=== PATIENT | female | born 1940 | race Caucasian/White ===

== ENCOUNTER 2016-04-17 10:47 | Inpatient (IN) | payer OTHER ==
[2016-04-17 12:10] LABS: BASOPHIL 1.2 % (0-2.0); EOSINOPHIL 1.7 % (0-4.5); MCH 30.8 pg (25.7-33.7); MCHC 33.6 g/dl (32.0-36.0); MEAN CELL VOLUME 91.6 fl (80-96); MEAN PLT VOLUME 7.6 fl (7.5-11.1); NEUTROPHILS 67.3 % (42.8-82.8); PLATELET COUNT 210 K/MM3 (134-434); RDW 13.9 % (11.6-15.6); WHITE BLOOD COUNT 9.5 K/mm3 (4.0-10.0)
[2016-04-17 13:01] LABS: INR 2.66 (0.82-1.09); PROTHROMBIN TIME (PATIENT) 29.9 SEC (9.98-11.88)
--- NOTE | 2016-04-17 13:01 | PDOC ---
History of Present Illness <Nathaniel Kenny - Last Filed: 04/17/16 14:16> - General History Source: Patient Exam Limitations: No Limitations - History of Present Illness Initial Comments: 04/17/16 14:54 The patient is a 75 year old female, with a significant past medical history of Atherosclerosis, hypertension, hypothyroid, multiple CVA and recent onset A-fib( on Coumadin), who presents to the emergency department sent by PCP for low Hbg of 8. Patient reports a short epistaxis yesterday and today that resolved on its own. Patient states that she has no other complains. She denies palpitations, chest pain, shortness of breath, headache, diaphoresis and dizziness. She denies fever, chills, nausea, vomit, diarrhea and constipation. She denies dysuria, frequency, urgency and hematuria. PCP - Dr. Becker <Danielle Ji - Last Filed: 04/17/16 14:55> - General Chief Complaint: Revisit, Lab Variance Stated Complaint: WEAKNESS (ANEMIC) Time Seen by Provider: 04/17/16 11:50 Past History - Past Medical History Anemia: No Asthma: No Cancer: No Cardiac Disorders: No CVA: No COPD: No CHF: No Dementia: No Diabetes: No GI Disorders: No Disorders: No HTN: Yes Hypercholesterolemia: No Liver Disease: No Seizures: No Thyroid Disease: Yes Other medical history: BLIND - Surgical History Abdominal Surgery: Yes (HIATAL HERNIA) Appendectomy: No Cardiac Surgery: No Cholecystectomy: Yes Lung Surgery: No Neurologic Surgery: No Orthopedic Surgery: No - Immunization History Immunization Up to Date: Yes - Psycho/Social/Smoking Cessation Hx Anxiety: No Suicidal Ideation: No Smoking Status: No Smoking History: Former smoker Have you smoked in the past 12 months: No Number of Cigarettes Smoked Daily: 20 If you are a former smoker, when did you quit?: 4 MO AGO Cigars Per Day: 10 Information on smoking cessation initiated: No 'Breaking Loose' booklet given: 03/11/13 Hx Alcohol Use: No Drug/Substance Use Hx: No Substance Use Type: None Hx Substance Use Treatment: No <Nathaniel Kenny - Last Filed: 04/17/16 14:16> <Danielle Ji - Last Filed: 04/17/16 14:55> - Past Medical History Allergies/Adverse Reactions: Allergies Allergy/AdvReac Type Severity Reaction Status Date / Time No Known Drug Allergies Allergy Verified 04/17/16 11:05 Home Medications: Ambulatory Orders Alprazolam [Xanax] 0.25 mg PO DAILY PRN 04/17/16 Amlodipine Besylate [Norvasc -] 10 mg PO DAILY 04/17/16 Aspirin [Aspirin EC] 325 mg PO DAILY 04/17/16 Atorvastatin Ca [Lipitor] 20 mg PO HS 04/17/16 Famotidine [Heartburn Prevention] 20 mg PO DAILY 04/17/16 Magnesium Oxide [Magnesium] 400 mg PO DAILY 04/17/16 Metoprolol Succinate [Toprol Xl -] 25 mg PO BID 04/17/16 Timolol 0.5% [Timoptic 0.5%] 1 drop OU DAILY 04/17/16 Warfarin Sodium [Coumadin] 4 mg PO HS 04/17/16 Review of Systems - Review of Systems Able to Perform ROS?: Yes Comments:: 04/17/16 14:54 CONSTITUTIONAL: No reported: Fever, Chills, Diaphoresis, Generalized Weakness, Malaise, Loss of Appetite HEENT: No reported: Rhinorrhea, Nasal Congestion, Throat Pain, Throat Swelling, Difficulty Swallowing, Mouth Swelling, Ear Pain, Eye Pain, Visual Changes CARDIOVASCULAR: No reported: Chest Pain, Syncope, Palpitations, Irregular Heart Rate, Lightheadedness, Peripheral Edema RESPIRATORY: No reported: Cough, Shortness of Breath, SOB with Exertion, Orthopnea, Wheezing , Stridor, Hemoptysis GASTROINTESTINAL: No reported: Abdominal pain, Abdominal Distension, Nausea, Vomiting, Diarrhea, Constipation, Melena, Hematochezia GENITOURINARY: No reported: Dysuria, Frequency, Urgency, Hesitancy, Flank Pain, Genital Pain MUSCULOSKELETAL: No reported: Myalgia, Arthralgia, Joint Swelling, Back pain, Neck Pain SKIN: No reported: Rash, Itching, Pallor HEMATOLOGIC/IMMUNOLOGIC: No reported: Easy Bleeding, Easy Bruising, Lymphadenopathy, Frequent infections ENDOCRINE: No reported: Unexplained Weight Gain, Unexplained Weight Loss, Heat Intolerance , Cold Intolerance NEUROLOGIC: No reported: Headache, Focal Weakness, Paresthesias, Vertigo, Lightheadedness, Unsteady Gait, Seizure, Mental Status Changes, Incontinence PSYCHIATRIC: No reported: Anxiety, Depression <Danielle Ji - Last Filed: 04/17/16 14:55> *Physical Exam - Vital Signs Last Vital Signs Temp Pulse Resp BP Pulse Ox 97.8 F 59 L 20 139/52 97 04/17/16 11:00 04/17/16 11:00 04/17/16 11:00 04/17/16 11:00 04/17/16 11:00 <Nathaniel Kenny - Last Filed: 04/17/16 14:16> - Vital Signs Last Vital Signs Temp Pulse Resp BP Pulse Ox 97.8 F 59 L 20 139/52 97 04/17/16 11:00 04/17/16 11:00 04/17/16 11:00 04/17/16 11:00 04/17/16 11:00 - Physical Exam Comments: 04/17/16 14:55 GENERAL: The patient is awake, alert, and fully oriented, Nontoxic - in no acute distress. HEAD: Normocephalic, atraumatic. EYES: extraocular movements intact, sclera anicteric, conjunctiva clear. ENT: Normal voice, Moist mucous membranes. NECK: Normal range of motion, No JVD LUNGS: Breath sounds equal, clear to auscultation bilaterally. No wheezes, no rhonchi, no rales. HEART: Regular rate and rhythm, normal S1 and S2 without murmur, rub or gallop. ABDOMEN: Soft, nontender, normoactive bowel sounds. No guarding, no rebound. No masses. No CVA tenderness EXTREMITIES: Normal range of motion, no edema. No clubbing or cyanosis. No cords , erythema, or tenderness. NEUROLOGICAL: No facial asymmetry, Normal speech, normal gait. PSYCH: Normal mood, normal affect. SKIN: Warm, Dry, normal turgor. RECTAL EXAM: brown stool, no hemorroids noted. <Danielle Ji - Last Filed: 04/17/16 14:55> Heart Score/ECG Review - ECG Impressions Comment:: 04/17/16 13:06 Twelve-lead EKG was performed and reviewed by me. There is normal sinus rhythm with a heart rate of 53 The axis is normal. The intervals are normal. There is normal R wave progression nonspecific T wave changes Impression: Sinus bradycardia <Nathaniel Kenny - Last Filed: 04/17/16 14:16> ED Treatment Course - LABORATORY CBC & Chemistry Diagram: 04/17/16 11:50 04/17/16 11:50 - ADDITIONAL ORDERS Additional order review: 04/17/16 11:50 RBC 2.50 L D MCV 91.6 MCHC 33.6 RDW 13.9 MPV 7.6 Neutrophils % 67.3 Lymphocytes % 22.7 D Monocytes % 7.1 Eosinophils % 1.7 D Basophils % 1.2 - RADIOLOGY Radiology Studies Ordered: Category Date Time Status CHEST X-RAY PORTABLE* [RAD] Stat Radiology 04/17/16 11:50 Completed <Nathaniel Kenny - Last Filed: 04/17/16 14:16> - LABORATORY CBC & Chemistry Diagram: 04/17/16 11:50 04/17/16 11:50 - ADDITIONAL ORDERS Additional order review: Laboratory Results 04/17/16 04/17/16 04/17/16 12:57 11:50 11:50 INR 2.66 H Sodium 136 Potassium 4.3 Chloride 98 Carbon Dioxide 25 Anion Gap 13 BUN 14 Creatinine 1.2 H D Creat Clearance w eGFR 43.56 Random Glucose 84 Calcium 8.3 L Total Bilirubin 0.3 D AST 63 H D ALT 44 D Alkaline Phosphatase 107 Total Protein 7.1 Albumin 3.8 Stool Occult Blood Negative Blood Type Antibody Screen 04/17/16 11:50 INR Sodium Potassium Chloride Carbon Dioxide Anion Gap BUN Creatinine Creat Clearance w eGFR Random Glucose Calcium Total Bilirubin AST ALT Alkaline Phosphatase Total Protein Albumin Stool Occult Blood Blood Type A POSITIVE Antibody Screen Negative 04/17/16 11:50 RBC 2.50 L D MCV 91.6 MCHC 33.6 RDW 13.9 MPV 7.6 Neutrophils % 67.3 Lymphocytes % 22.7 D Monocytes % 7.1 Eosinophils % 1.7 D Basophils % 1.2 <Danielle Ji - Last Filed: 04/17/16 14:55> Medical Decision Making - Medical Decision Making 04/17/16 12:58 75y F htn, hl, Atherosclerosis, hypertension, hypothyroid, and recent onset A- fib on coumadin, multiple cvas presents with anemia - pt had outpatient blood work that showed she was anemic so was told to come to the ED, the pt denies any complaints including any rectal bleeding, melena, nor signs of anemia. on exam pt is in no acute distress, unremarkable exam, stool exam is yellow stool - guaiac pending. vitals normal will recheck her labs if necessary will trasnfuse will discuss with PMD once labs returend. A portion of this note was documented by scribe services under my direction. I have reviewed the details of the note, within reason, and agree with the documentation with the following case summary and management plan written by me 04/17/16 13:26 pts hbg at 7.6, 2pt hbg drop from previous admission several months ago guaiac pending will likely need admission for evaluation of anemia 04/17/16 13:30 04/17/16 14:16 case d/w dr. goff requested consult with GI and transfusion of 2u prbc stable for med surg admission Case discussed in detail with admitting physician including history, physical exam and ancillary studies. Admitting physician has assumed care for the patient, will follow all pending diagnostics and will complete the evaluation and treatment. <Nathaniel Kenny - Last Filed: 04/17/16 14:16> - Medical Decision Making 04/17/16 14:02 A page was placed to Dr. Goff at his service. Awaiting call back. 04/17/16 14:[address] Goff. <Danielle Ji - Last Filed: 04/17/16 14:55> *DC/Admit/Observation/Transfer - Discharge Dispostion Admit: Yes <Nathaniel Kenny - Last Filed: 04/17/16 14:16> - Attestations Scribe Attestion: 04/17/16 14:55 Documentation prepared by JESSE Guerrero, acting as medical lab scientist for Nathaniel Kenny MD. <Danielle Ji - Last Filed: 04/17/16 14:55> Diagnosis at time of Disposition: Anemia Qualifiers: Anemia type: unspecified type Qualified Code(s): D64.9 - Anemia, unspecified - Referrals Referrals: Eduardo Goff MD [Primary Care Provider] -
[2016-04-17 13:24] LABS: ALBUMIN 3.8 g/dl (3.4-5.0); BILIRUBIN,TOTAL 0.3 mg/dL (0.2-1.0); CALCIUM 8.3 mg/dL (8.5-10.1); CREATININE 1.2 mg/dL (0.55-1.02); TOT PROT 7.1 g/dl (6.4-8.2)
--- NOTE | 2016-04-17 16:14 | EKG ---
Test Reason : Blood Pressure : / mmHG Vent. Rate : 053 BPM Atrial Rate : 053 BPM P-R Int : 148 ms QRS Dur : 102 ms QT Int : 438 ms P-R-T Axes : 037 010 110 degrees QTc Int : 410 ms SINUS BRADYCARDIA T WAVE ABNORMALITY, CONSIDER LATERAL ISCHEMIA ABNORMAL ECG WHEN COMPARED WITH ECG OF 05-JAN-2016 12:17, CRITERIA FOR SEPTAL INFARCT ARE NO LONGER PRESENT Confirmed by KINZA STEPHENS MD ([id number]) on 04/17/2016 4:14:23 PM Referred By: Confirmed By:KINZA STEPHENS MD
--- NOTE | 2016-04-17 16:56 | HP ---
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 Patient reports a brief nose bleed yesterday and today that resolved on its own. Patient states that she has no other complains. She denies black stools, heart-Burn; sx; loss of appetite, postural dizziness, n-v; constipation; use of alcohol/NSAIDs. She was d'c from SNF on 1st week of this month, but was not ever told anything about being anemic. 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 Cardiovascular: Yes: AFIB, HTN, Hyperlipdemia Pulmonary: Yes: COPD Heme/Onc: Yes: Anemia Psych: Yes: Anxiety Musculoskeletal: Yes: Osteoarthritis Endocrine: Yes: Hypothyroidism - Past Surgical History Past Surgical History: Yes: Cholecystectomy Additional Past Surgical History: sub-Tot thryoidectomy multiple d&c - Smoking History Smoking history: Former smoker Have you smoked in the past 12 months: No Aproximately how many cigarettes per day: 20 If you are a former smoker, when did you quit?: 4 MO AGO - Alcohol/Substance Use Hx Alcohol Use: No History of Substance Use: reports: None - Social History Usual Living Arrangement: Yes: Alone ADL: Support Services History of Recent Travel: No Home Medications - Allergies Allergies/Adverse Reactions: Allergies Allergy/AdvReac Type Severity Reaction Status Date / Time No Known Drug Allergies Allergy Verified 04/17/16 11:05 - Home Medications Home Medications: Ambulatory Orders Alprazolam [Xanax] 0.25 mg PO DAILY PRN 04/17/16 Amlodipine Besylate [Norvasc -] 10 mg PO DAILY 04/17/16 Aspirin [Aspirin EC] 325 mg PO DAILY 04/17/16 Atorvastatin Ca [Lipitor] 20 mg PO HS 04/17/16 Famotidine [Heartburn Prevention] 20 mg PO DAILY 04/17/16 Magnesium Oxide [Magnesium] 400 mg PO DAILY 04/17/16 Metoprolol Succinate [Toprol Xl -] 25 mg PO BID 04/17/16 Timolol 0.5% [Timoptic 0.5%] 1 drop OU DAILY 04/17/16 Warfarin Sodium [Coumadin] 4 mg PO HS 04/17/16 Family Disease History - Family Disease History Family Disease History: Heart Disease: Father, Mother Review of Systems - Review of Systems Constitutional: reports: No Symptoms Eyes: reports: Other (limited vision) HENT: reports: No Symptoms Neck: reports: No Symptoms Cardiovascular: reports: No Symptoms Respiratory: reports: No Symptoms Gastrointestinal: reports: No Symptoms Genitourinary: reports: No Symptoms Breasts: reports: No Symptoms Reported Musculoskeletal: reports: No Symptoms Integumentary: reports: No Symptoms Neurological: reports: No Symptoms Endocrine: reports: No Symptoms Hematology/Lymphatic: reports: No Symptoms Psychiatric: reports: No Symptoms Physical Examination Vital Signs: Vital Signs Temperature 97.8 F 04/17/16 11:00 Pulse Rate 59 L 04/17/16 11:00 Respiratory Rate 20 04/17/16 11:00 Blood Pressure 139/52 04/17/16 11:00 O2 Sat by Pulse Oximetry (%) 97 04/17/16 11:00 Constitutional: Yes: No Distress, Calm Eyes: Yes: Conjunctiva Clear, EOM Intact HENT: Yes: Other (upper dentures) Neck: Yes: Supple Cardiovascular: Yes: Bradycardia, Murmur Respiratory: Yes: Diminished Gastrointestinal: Yes: WNL, Soft ...Rectal Exam: Yes: Guaiac Negative Breast(s): Yes: WNL Musculoskeletal: Yes: WNL Extremities: Yes: WNL Edema: No Peripheral Pulses WNL: Yes Peripheral Pulses: Left Doralis Pedis: 1+, Right Dorsalis Pedis: 1+ Integumentary: Yes: WNL Neurological: Yes: WNL ...Motor Strength: WNL Psychiatric: Yes: WNL Labs: CBCD WBC 9.5 K/mm3 (4.0-10.0) 04/17/16 11:50 RBC 2.50 M/mm3 (3.60-5.2) L D 04/17/16 11:50 Hgb 7.7 GM/dL (10.7-15.3) L D 04/17/16 11:50 Hct 22.9 % (32.4-45.2) L D 04/17/16 11:50 MCV 91.6 fl (80-96) 04/17/16 11:50 MCHC 33.6 g/dl (32.0-36.0) 04/17/16 11:50 RDW 13.9 % (11.6-15.6) 04/17/16 11:50 Plt Count 210 K/MM3 (134-434) 04/17/16 11:50 MPV 7.6 fl (7.5-11.1) 04/17/16 11:50 CMP Sodium 136 mmol/L (136-145) 04/17/16 11:50 Potassium 4.3 mmol/L (3.5-5.1) 04/17/16 11:50 Chloride 98 mmol/L (98-107) 04/17/16 11:50 Carbon Dioxide 25 mmol/L (21-32) 04/17/16 11:50 Anion Gap 13 (8-16) 04/17/16 11:50 BUN 14 mg/dL (7-18) 04/17/16 11:50 Creatinine 1.2 mg/dL (0.55-1.02) H D 04/17/16 11:50 Creat Clearance w eGFR 43.56 (>60) 04/17/16 11:50 Random Glucose 84 mg/dL (74-106) 04/17/16 11:50 Calcium 8.3 mg/dL (8.5-10.1) L 04/17/16 11:50 Total Bilirubin 0.3 mg/dL (0.2-1.0) D 04/17/16 11:50 AST 63 U/L (15-37) H D 04/17/16 11:50 ALT 44 U/L (12-78) D 04/17/16 11:50 Alkaline Phosphatase 107 U/L (45-117) 04/17/16 11:50 Total Protein 7.1 g/dl (6.4-8.2) 04/17/16 11:50 Albumin 3.8 g/dl (3.4-5.0) 04/17/16 11:50 INR, PTT INR 2.66 (0.82-1.09) H 04/17/16 11:50 Imaging - Results Chest X-ray: Report Reviewed EKG: Report Reviewed Problem List - Problems (1) Anemia Assessment/Plan: profoundly anemic; way from her baseline. Onset unclear, if it is due to LOSS of blood (due to periodic intermittenent spurts, (vs) one event) or 2nd occult process; but no evidence of acute or active bleeding. Stool for OB is negative, but she is on 2 agents that put her at a high risk for bleeding (ASA + Warf together). PLAN: transfuse; daily H/h; GI eval; add PPI Code(s): D64.9 - ANEMIA, UNSPECIFIED Qualifiers: Anemia type: unspecified type Qualified Code(s): D64.9 - Anemia, unspecified (2) Atrial fibrillation Assessment/Plan: recent onset; late 2015 in wake of CVA. She was placed on a/c but then had ocular stroke while therapeutically anticoagulated, and ASA was then added. THUs the benefits of this regimen, were worth the risks (at the time) because of the devatating residual effects of the multi-strokes she sustained. PLAN: Cont dual agents for now; cont BB Code(s): I48.91 - UNSPECIFIED ATRIAL FIBRILLATION Qualifiers: Atrial fibrillation type: paroxysmal Qualified Code(s): I48.0 - Paroxysmal atrial fibrillation (3) Disturbances of vision, late effect of stroke Assessment/Plan: resulting in significant visual loss in both eyes, thereby making a case for dual a/c (as she had failed on warf alone). The loss is permanent, and she now needs daily in-home care physical therapist to help with her ADLs Code(s): I69.398 - OTHER SEQUELAE OF CEREBRAL INFARCTION H53.9 - UNSPECIFIED VISUAL DISTURBANCE (4) Hypertensive arteriosclerotic cardiovascular disease Assessment/Plan: BP now under control with BB & CCB Code(s): I11.9 - HYPERTENSIVE HEART DISEASE WITHOUT HEART FAILURE (5) Lipidemia Assessment/Plan: on statin; recent levels are in acceptable range Code(s): E78.5 - HYPERLIPIDEMIA, UNSPECIFIED Qualifiers: Hyperlipidemia type: unspecified Qualified Code(s): E78.5 - Hyperlipidemia, unspecified (6) Hypothyroid Assessment/Plan: longstanding problem, for which she has always been on supplementation; but since her release from the SNF; she has not been continued on it for reasons as of yet unclear. She does not appear to be clinically hypothyroid; but will need to check the TSH Code(s): E03.9 - HYPOTHYROIDISM, UNSPECIFIED Qualifiers: Hypothyroidism type: acquired Qualified Code(s): E03.9 - Hypothyroidism, unspecified (7) Atherosclerosis of arteries Assessment/Plan: diffuse, affecting medium, large and small sized vessels of the trunk, neck, head and extremities;likely 2nd jail effects of tobacco & chronic Htn. No signs of acute ischemic processes Code(s): I70.8 - ATHEROSCLEROSIS OF OTHER ARTERIES (8) History of smoking 30 or more pack years Assessment/Plan: with subclinical COPD; PAD, and recent stroke. She has stopped smoking in late 2015. Code(s): Z87.891 - PERSONAL HISTORY OF NICOTINE DEPENDENCE (9) Glaucoma (increased eye pressure) Assessment/Plan: on BB eye gtts Code(s): H40.9 - UNSPECIFIED GLAUCOMA Qualifiers: Glaucoma type: unspecified type Laterality: bilateral Qualified Code(s): H40.9 - Unspecified glaucoma (10) Transaminasemia Assessment/Plan: mild elevation of AST; without alk Ph; which could be effect of statin; but could also be other causes in relation to blood loss. PLAN: get US of abd; check LDH levels. Code(s): R74.0 - NONSPEC ELEV OF LEVELS OF TRANSAMNS & LACTIC ACID DEHYDRGNSE Assessment/Plan The patient is a significantly anemic 75 year old female, with a past medical history of Atherosclerosis, hypertension, hypothyroid, multiple CVA and recent onset A-fib(on Coumadin), who presents to the emergency department sent by PCP for low Hbg of under 8 who will need urgent transfusions, and possible GI evaluation. ~~~~~~~~~~~~~~~~~~~~~~~ Dr Lr---1 Hr
[2016-04-17 17:47] VITALS: BMI 23.9
[2016-04-17] MEDS ORDERED: INFLUENZA VACCINE 45 MCG/0.5 ML (MDV 16-17) IM ONE (17:47)
[2016-04-17] MEDS ORDERED: WARFARIN NA 2 MG TABLET (UD) PO SCH (18:00)
[2016-04-17] MEDS: WARFARIN NA 2 MG TABLET (UD) PO SCH (21:39)
[2016-04-17] MEDS ORDERED: MIRTAZAPINE 15 MG TABLET (FP) PO SCH (22:00)
[2016-04-18 08:13] LABS: MCH 30.3 pg (25.7-33.7); MCHC 34.2 g/dl (32.0-36.0); MEAN CELL VOLUME 88.6 fl (80-96); MEAN PLT VOLUME 7.6 fl (7.5-11.1); PLATELET COUNT 179 K/MM3 (134-434); RDW 14.9 % (11.6-15.6); WHITE BLOOD COUNT 7.1 K/mm3 (4.0-10.0)
[2016-04-18 08:19] LABS: INR 2.64 (0.82-1.09); PROTHROMBIN TIME (PATIENT) 29.6 SEC (9.98-11.88)
[2016-04-18 08:59] LABS: ALBUMIN 3.6 g/dl (3.4-5.0); BILIRUBIN,TOTAL 1.7 mg/dL (0.2-1.0); CALCIUM 8.1 mg/dL (8.5-10.1); CREATININE 1.1 mg/dL (0.55-1.02); MAGNESIUM 1.9 mg/dL (1.8-2.4); THYROID STIMULATING HORMONE 64.4 uIU/ml (0.358-3.74); TOT PROT 6.9 g/dl (6.4-8.2)
[2016-04-18] MEDS ORDERED: PT OWN MED DRAWER 7, Y5N ONE (10:29)
[2016-04-18] MEDS: amLODIPine BESYLATE 5 MG TABLET (FP) PO SCH ×2 (10:37→21:26)
[2016-04-18] MEDS: MAGNESIUM CL 64 MG TABLET.SA PO SCH (10:37)
[2016-04-18] MEDS: PANTOPRAZOLE 20 MG TABLET (FP) PO SCH (10:37)
[2016-04-18] MEDS: METOPROLOL SUCCINATE 25 MG TAB.SR.24H (FP) PO SCH (10:37)
[2016-04-18] MEDS: TIMOLOL 0.5% OPHTHALMIC SOL 5 ML BOTTLE OU SCH (10:38)
[2016-04-18] MEDS ORDERED: LEVOTHYROXINE NA 50 MCG TABLET (FP) PO ONE (10:45)
[2016-04-18 11:27] LABS: FREE T4 0.47 ng/dl (0.76-1.46)
--- NOTE | 2016-04-18 13:12 | CONSULT ---
Consult Consult Specialty:: Gastroenterology Referred by:: Dr Lr Reason for Consultation:: Anemia - History of Present Illness Chief Complaint: Anemia but without overt bleeding ( patient is legally blind) History of Present Illness: 75W is admitted with HB of 7. She denies any overt GI bleeding but is legally blind. She denies any abdominal pain, dysphagia, constipation but does have early satiety and has been losing weight over the past few years. Has never had an EGD or a colonoscopy. Strong FH of BRAC positive breast cancer but no GI cancers. In 12/18 she fell and was admitted with an altered mental status, a forehead hematoma and atrial fibrillation. 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 Aspirin was added to her regimen. 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 [employer] History of Recent Travel: No Home Medications - Allergies Allergies/Adverse Reactions: Allergies Allergy/AdvReac Type Severity Reaction Status Date / Time No Known Drug Allergies Allergy Verified 04/17/16 11:05 - Home Medications Home Medications: Ambulatory Orders Alprazolam [Xanax] 0.25 mg PO DAILY PRN 04/17/16 Amlodipine Besylate [Norvasc -] 10 mg PO DAILY 04/17/16 Aspirin [Aspirin EC] 325 mg PO DAILY 04/17/16 Atorvastatin Ca [Lipitor] 20 mg PO HS 04/17/16 Famotidine [Heartburn Prevention] 20 mg PO DAILY 04/17/16 Magnesium Oxide [Magnesium] 400 mg PO DAILY 04/17/16 Metoprolol Succinate [Toprol Xl -] 25 mg PO BID 04/17/16 Timolol 0.5% [Timoptic 0.5%] 1 drop OU DAILY 04/17/16 Warfarin Sodium [Coumadin] 4 mg PO HS 04/17/16 Family Disease History - Family Disease History Family Disease History: Heart Disease: Father, Mother, CA: Sister (3 sisters of BRAC positive breast cancer, also ovarian cancer and leukemia) Review of Systems - Review of Systems Constitutional: reports: Loss of Appetite, Unintentional Wgt. Loss, Weakness Eyes: reports: Recent Change in Vision (since 01/17 CVAs) HENT: reports: No Symptoms Neck: reports: No Symptoms Cardiovascular: reports: No Symptoms Respiratory: reports: SOB on Exertion Gastrointestinal: reports: No Symptoms Genitourinary: reports: No Symptoms Musculoskeletal: reports: No Symptoms Neurological: reports: No Symptoms Physical Exam-GI Vital Signs: Vital Signs Temperature 98.2 F 04/18/16 05:00 Pulse Rate 60 04/18/16 10:00 Respiratory Rate 20 04/18/16 10:00 Blood Pressure 152/58 04/18/16 10:00 O2 Sat by Pulse Oximetry (%) 97 04/17/16 21:00 CBC,CMP WBC 7.1 K/mm3 (4.0-10.0) 04/18/16 06:35 RBC 3.55 M/mm3 (3.60-5.2) L D 04/18/16 06:35 Hgb 10.8 GM/dL (10.7-15.3) D 04/18/16 06:35 Hct 31.4 % (32.4-45.2) L D 04/18/16 06:35 MCV 88.6 fl (80-96) 04/18/16 06:35 MCHC 34.2 g/dl (32.0-36.0) 04/18/16 06:35 RDW 14.9 % (11.6-15.6) 04/18/16 06:35 Plt Count 179 K/MM3 (134-434) 04/18/16 06:35 MPV 7.6 fl (7.5-11.1) 04/18/16 06:35 Neutrophils % 67.3 % (42.8-82.8) 04/17/16 11:50 Lymphocytes % 22.7 % (8-40) D 04/17/16 11:50 Monocytes % 7.1 % (3.8-10.2) 04/17/16 11:50 Eosinophils % 1.7 % (0-4.5) D 04/17/16 11:50 Basophils % 1.2 % (0-2.0) 04/17/16 11:50 Sodium 139 mmol/L (136-145) 04/18/16 06:35 Potassium 4.3 mmol/L (3.5-5.1) 04/18/16 06:35 Chloride 101 mmol/L (98-107) 04/18/16 06:35 Carbon Dioxide 29 mmol/L (21-32) 04/18/16 06:35 Anion Gap 9 (8-16) 04/18/16 06:35 BUN 13 mg/dL (7-18) 04/18/16 06:35 Creatinine 1.1 mg/dL (0.55-1.02) H 04/18/16 06:35 Creat Clearance w eGFR 48.16 (>60) 04/18/16 06:35 Random Glucose 92 mg/dL (74-106) 04/18/16 06:35 Calcium 8.1 mg/dL (8.5-10.1) L 04/18/16 06:35 Magnesium 1.9 mg/dL (1.8-2.4) D 04/18/16 06:35 Total Bilirubin 1.7 mg/dL (0.2-1.0) H D 04/18/16 06:35 AST 95 U/L (15-37) H D 04/18/16 06:35 ALT 68 U/L (12-78) D 04/18/16 06:35 Alkaline Phosphatase 124 U/L (45-117) H 04/18/16 06:35 LD Total 435 U/L (84-246) H D 04/17/16 21:00 Total Protein 6.9 g/dl (6.4-8.2) 04/18/16 06:35 Albumin 3.6 g/dl (3.4-5.0) 04/18/16 06:35 TSH 64.40 uIU/ml (0.358-3.74) H D 04/18/16 06:35 Free T4 Cancelled 04/18/16 11:00 Current Medications Generic Name Dose Route Start Last Admin Trade Name Estela PRN Reason Stop Dose Admin Amlodipine Besylate 5 mg 04/18/16 10:00 04/18/16 10:37 Norvasc - PO 5 mg BID [facility] Administration Atorvastatin Calcium 20 mg 04/18/16 22:00 Lipitor - PO HS [facility] Magnesium Chloride 64 mg 04/18/16 10:00 04/18/16 10:37 Slow-Mag - PO 64 mg DAILY [facility] Administration Metoprolol Succinate 25 mg 04/18/16 10:00 04/18/16 10:37 Toprol Xl - PO 25 mg DAILY [facility] Administration Mirtazapine 15 mg 04/17/16 22:00 04/17/16 21:40 Remeron - PO 15 mg HS [facility] Administration Pantoprazole Sodium 20 mg 04/18/16 10:00 04/18/16 10:37 Protonix - PO 20 mg DAILY [facility] Administration Timolol Maleate 1 drop 04/18/16 10:00 04/18/16 10:38 Timoptic 0.5% OU 1 drop DAILY [facility] Administration Warfarin Sodium 4 mg 04/17/16 20:00 04/17/16 21:39 Coumadin - PO 4 mg DAILY@1800 [facility] Administration Constitutional: Yes: Calm Eyes: Yes: Conjunctiva Clear, Other (legally blind) HENT: Yes: Normocephalic, Other (healed transverse thyroid incision) Neck: Yes: Supple Cardiovascular: Yes: Pulse Irregular Respiratory: Yes: CTA Bilaterally Gastrointestinal Inspection: Yes: Scars (healed obliqque RUQ incision) ...Auscultate: Yes: Normoactive Bowel Sounds ...Palpate: Yes: Soft, Other (nontender) ...Rectal Exam: Yes: Guaiac Positive, Other (no rectal masses) Edema: No Labs: CBC, BMP 04/18/16 06:35 04/18/16 06:35 INR, PTT INR 2.64 (0.82-1.09) H 04/18/16 06:35 Laboratory Tests 02/27/12 03/11/13 12/28/15 20:00 07:45 05:15 Hgb 13.4 13.3 9.9 L D 01/06/16 01/09/16 01/11/16 06:00 06:00 06:10 Hgb 10.6 L 9.6 L 10.0 L 01/12/16 04/17/16 04/18/16 06:00 11:50 06:35 Hgb 9.6 L 7.7 L D 10.8 D Problem List - Problems (1) Occult blood in stools Code(s): R19.5 - OTHER FECAL ABNORMALITIES Assessment/Plan Given her occult bleeding I have proposed that Leandra undergo both an EGD and a colonoscopy to exclude a bleeding neoplasm, ulcer, erosive gastritis, duodenitis or GERD and vascular ectasias among other possibilities. Given the significant CVA risk the procedures will be done without interrupting her anticoagulation with the understanding that they may need to be repeated off Coumadin. I have informed Leandra of the potential for such complications as perforation and hemorrhage. She has granted an informed consent. Her niece Sugar Vallejo was present and is in agreement. I have discussed the case with Dr. Lr. Her sudden rise in LFTs may reflect her transfusions but will screen for chronic liver diseases and await sonogram results.
--- NOTE | 2016-04-18 13:47 | PN ---
Progress Note (short form) - Note Progress Note: Current Medications Amlodipine Besylate (Norvasc -) 5 mg PO BID [facility] Last Admin: 04/18/16 10:37 Dose: 5 mg Atorvastatin Calcium (Lipitor -) 20 mg PO [facility] Magnesium Chloride (Slow-Mag -) 64 mg PO DAILY [facility] Last Admin: 04/18/16 10:37 Dose: 64 mg Metoprolol Succinate (Toprol Xl -) 25 mg PO DAILY [facility] Last Admin: 04/18/16 10:37 Dose: 25 mg Mirtazapine (Remeron -) 15 mg PO HS [facility] Last Admin: 04/17/16 21:40 Dose: 15 mg Pantoprazole Sodium (Protonix -) 20 mg PO DAILY [facility] Last Admin: 04/18/16 10:37 Dose: 20 mg Timolol Maleate (Timoptic 0.5%) 1 drop OU DAILY [facility] Last Admin: 04/18/16 10:38 Dose: 1 drop Warfarin Sodium (Coumadin -) 4 mg PO DAILY@1800 [facility] Last Admin: 04/17/16 21:39 Dose: 4 mg Laboratory Results - last 24 hr 04/17/16 04/17/16 04/17/16 11:50 12:57 21:00 WBC RBC Hgb Hct MCV MCHC RDW Plt Count MPV INR Sodium Potassium Chloride Carbon Dioxide Anion Gap BUN Creatinine Creat Clearance w eGFR Random Glucose Calcium Magnesium Total Bilirubin AST ALT Alkaline Phosphatase LD Total 435 H D Total Protein Albumin TSH Free T4 Stool Occult Blood Negative Blood Type A POSITIVE Antibody Screen Negative Crossmatch See Detail 04/18/16 04/18/16 04/18/16 06:35 06:35 06:35 WBC 7.1 RBC 3.55 L D Hgb 10.8 D Hct 31.4 L D MCV 88.6 MCHC 34.2 RDW 14.9 Plt Count 179 MPV 7.6 INR 2.64 H Sodium 139 Potassium 4.3 Chloride 101 Carbon Dioxide 29 Anion Gap 9 BUN 13 Creatinine 1.1 H Creat Clearance w eGFR 48.16 Random Glucose 92 Calcium 8.1 L Magnesium 1.9 D Total Bilirubin 1.7 H D AST 95 H D ALT 68 D Alkaline Phosphatase 124 H LD Total Total Protein 6.9 Albumin 3.6 TSH 64.40 H D Free T4 0.47 L D Stool Occult Blood Blood Type Antibody Screen Crossmatch 04/18/16 11:00 WBC RBC Hgb Hct MCV MCHC RDW Plt Count MPV INR Sodium Potassium Chloride Carbon Dioxide Anion Gap BUN Creatinine Creat Clearance w eGFR Random Glucose Calcium Magnesium Total Bilirubin AST ALT Alkaline Phosphatase LD Total Total Protein Albumin TSH Free T4 Cancelled Stool Occult Blood Blood Type Antibody Screen Crossmatch Vital Signs Temperature 98.2 F 04/18/16 05:00 Pulse Rate 60 04/18/16 10:00 Respiratory Rate 20 04/18/16 10:00 Blood Pressure 152/58 04/18/16 10:00 O2 Sat by Pulse Oximetry (%) 97 04/17/16 21:00 CC: no specific complaints `````````````````````` skin--no acute lesions eyes--midline lungs--bilat rhonchi heart--RR 2/6 SM ext--no edema neuro--fully alert & coherent ``````````````````````````` Summ > Anemia--now tested (+) for OB as per GI; thus will need endoscopy. s/p PRBC transfusion; PLAN: checks CBCs daily; PPI > HTn--BP okay > Hypothryoidism--clinically euthyroid; but TSH high and Freet4 low; had not been on her supplement. PLAN: restart Synthroid > COPD--not oxygen or O2 dependant; but Hx of fdc tobacco use. Will get Pulm eval pre-endoscopy > elevated transaminases--US of abd taken; but not resulted > on fdc anti-coag & ASA use--for stroke prev; GI aware, and will maintain both these agents >Insomnia--in part 2nd anxiety; will up dose of Remeron ~~~~~~~~~~~~~~~~~~~~~~~~~~~~~~~~~ Dr Lr Problem List - Problems (1) Anemia Code(s): D64.9 - ANEMIA, UNSPECIFIED Qualifiers: Qualified Code(s): D64.9 - Anemia, unspecified (2) Atrial fibrillation Code(s): I48.91 - UNSPECIFIED ATRIAL FIBRILLATION Qualifiers: Qualified Code(s): I48.0 - Paroxysmal atrial fibrillation (3) Disturbances of vision, late effect of stroke Code(s): I69.398 - OTHER SEQUELAE OF CEREBRAL INFARCTION H53.9 - UNSPECIFIED VISUAL DISTURBANCE (4) Hypertensive arteriosclerotic cardiovascular disease Code(s): I11.9 - HYPERTENSIVE HEART DISEASE WITHOUT HEART FAILURE (5) Lipidemia Code(s): E78.5 - HYPERLIPIDEMIA, UNSPECIFIED Qualifiers: Qualified Code(s): E78.5 - Hyperlipidemia, unspecified (6) Hypothyroid Code(s): E03.9 - HYPOTHYROIDISM, UNSPECIFIED Qualifiers: Qualified Code(s): E03.9 - Hypothyroidism, unspecified (7) Atherosclerosis of arteries Code(s): I70.8 - ATHEROSCLEROSIS OF OTHER ARTERIES (8) History of smoking 30 or more pack years Code(s): Z87.891 - PERSONAL HISTORY OF NICOTINE DEPENDENCE (9) Glaucoma (increased eye pressure) Code(s): H40.9 - UNSPECIFIED GLAUCOMA Qualifiers: Qualified Code(s): H40.9 - Unspecified glaucoma (10) Transaminasemia Code(s): R74.0 - NONSPEC ELEV OF LEVELS OF TRANSAMNS & LACTIC ACID DEHYDRGNSE
[2016-04-18 14:23] LABS: MCH 30.6 pg (25.7-33.7); MCHC 34.4 g/dl (32.0-36.0); MEAN PLT VOLUME 7.3 fl (7.5-11.1); PLATELET COUNT 187 K/MM3 (134-434); RDW 14.9 % (11.6-15.6); WHITE BLOOD COUNT 8.8 K/mm3 (4.0-10.0)
[2016-04-18] MEDS: ASPIRIN COATED 81 MG TABLET.EC PO SCH (14:35)
[2016-04-18] MEDS: POLYETHYLENE GLYCOL 3350 119 GM BTL PO SCH ×2 (14:35→21:27)
[2016-04-18 14:36] LABS: INR 2.63 (0.82-1.09); PROTHROMBIN TIME (PATIENT) 29.5 SEC (9.98-11.88)
[2016-04-18 14:50] LABS: CALCIUM 8.1 mg/dL (8.5-10.1); CREATININE 1.1 mg/dL (0.55-1.02)
[2016-04-18] MEDS: WARFARIN NA 2 MG TABLET (UD) PO SCH (18:07)
[2016-04-18] MEDS ORDERED: MIRTAZAPINE 15 MG TABLET (FP) ONE (21:23)
[2016-04-18] MEDS: ATORVASTATIN CA 20 MG TABLET (FP) PO SCH (21:26)
[2016-04-18] MEDS: MIRTAZAPINE 30 MG TABLET (FP) PO SCH (21:27)
[2016-04-19] MEDS ORDERED: ACETAMINOPHEN 325 MG TABLET (FP) PO PRN (01:26)
[2016-04-19] MEDS: POLYETHYLENE GLYCOL 3350 119 GM BTL PO SCH ×3 (06:18→22:14)
[2016-04-19] MEDS: LEVOTHYROXINE NA 50 MCG TABLET (FP) PO SCH (06:18)
[2016-04-19 07:40] LABS: BASOPHIL 1.1 % (0-2.0); EOSINOPHIL 2.5 % (0-4.5); MCH 30.4 pg (25.7-33.7); MCHC 34.3 g/dl (32.0-36.0); MEAN CELL VOLUME 88.9 fl (80-96); MEAN PLT VOLUME 7.6 fl (7.5-11.1); NEUTROPHILS 68.3 % (42.8-82.8); PLATELET COUNT 176 K/MM3 (134-434); WHITE BLOOD COUNT 7.3 K/mm3 (4.0-10.0)
[2016-04-19 07:53] LABS: ALBUMIN 3.7 g/dl (3.4-5.0); BILIRUBIN,DIRECT 0.2 mg/dL (0.0-0.2); CREATININE 1.1 mg/dL (0.55-1.02)
[2016-04-19 07:57] LABS: BILIRUBIN,TOTAL 0.6 mg/dL (0.2-1.0); FERRITIN 40.822 ng/ml (6.9-282.5); TOT PROT 6.9 g/dl (6.4-8.2)
[2016-04-19] MEDS ORDERED: PEG3350/SOD SULF,BICARB,CL/KCL 4,000 ML SOLN.RECON PO ONE (08:00)
[2016-04-19] MEDS ORDERED: PT OWN MED DRAWER 7, Y5N ONE ×2 (09:42→17:00)
[2016-04-19] MEDS: PANTOPRAZOLE 20 MG TABLET (FP) PO SCH (09:46)
[2016-04-19] MEDS: TIMOLOL 0.5% OPHTHALMIC SOL 5 ML BOTTLE OU SCH (09:46)
[2016-04-19] MEDS: amLODIPine BESYLATE 5 MG TABLET (FP) PO SCH ×2 (09:46→22:10)
[2016-04-19] MEDS: MAGNESIUM CL 64 MG TABLET.SA PO SCH (09:48)
[2016-04-19] MEDS: METOPROLOL SUCCINATE 25 MG TAB.SR.24H (FP) PO SCH (09:48)
--- NOTE | 2016-04-19 11:14 | PN ---
Progress Note (short form) - Note Progress Note: SUBJECTIVE: Patient seen and examined. Chart reviewed. Patient comfortable Denies chest pain or shortness of breath. No nausea or vomiting. No headache or dizziness. OBJECTIVE: Vital Signs - 8 hr 04/19/16 07:47 Temperature 97.9 F Pulse Rate 55 L Respiratory 20 Rate Blood Pressure 146/54 Intake & Output 04/18/16 04/19/16 04/19/16 23:59 07:59 15:59 Other: Voiding Method Toilet # Unmeasured Voids Void 2 2 Bowel Movement No Active Medications Acetaminophen (Tylenol -) 650 mg PO Q6H PRN PRN Reason: FEVER OR PAIN Amlodipine Besylate (Norvasc -) 5 mg PO BID [facility] Last Admin: 04/19/16 09:46 Dose: 5 mg Aspirin (Ecotrin -) 162 mg PO DAILY [facility] Last Admin: 04/18/16 14:35 Dose: 162 mg Atorvastatin Calcium (Lipitor -) 20 mg PO [facility] Last Admin: 04/18/16 21:26 Dose: 20 mg Levothyroxine Sodium (Synthroid -) 50 mcg PO DAILY@0700 [facility] Last Admin: 04/19/16 06:18 Dose: 50 mcg Magnesium Chloride (Slow-Mag -) 64 mg PO DAILY [facility] Last Admin: 04/19/16 09:48 Dose: 64 mg Metoprolol Succinate (Toprol Xl -) 25 mg PO DAILY [facility] Last Admin: 04/19/16 09:48 Dose: 25 mg Mirtazapine (Remeron -) 30 mg PO [facility] Last Admin: 04/18/16 21:27 Dose: 30 mg Pantoprazole Sodium (Protonix -) 20 mg PO DAILY [facility] Last Admin: 04/19/16 09:46 Dose: 20 mg Polyethylene Glycol (Miralax (For Daily Use) -) 17 gm PO TID [facility] Last Admin: 04/19/16 06:18 Dose: 17 gm Timolol Maleate (Timoptic 0.5%) 1 drop OU DAILY [facility] Last Admin: 04/19/16 09:46 Dose: 1 drop Warfarin Sodium (Coumadin -) 4 mg PO DAILY@1800 [facility] Last Admin: 04/18/16 18:07 Dose: 4 mg CBC, BMP 04/19/16 06:35 04/19/16 06:35 Laboratory Results - last 24 hr 04/18/16 04/18/16 04/18/16 06:35 14:10 14:10 WBC 8.8 RBC 3.71 Hgb 11.4 Hct 33.0 MCV 89.0 MCHC 34.4 RDW 14.9 Plt Count 187 MPV 7.3 L Neutrophils % Lymphocytes % Monocytes % Eosinophils % Basophils % Retic Count INR 2.63 H Sodium Potassium Chloride Carbon Dioxide Anion Gap BUN Creatinine Random Glucose Calcium Ferritin Total Bilirubin Direct Bilirubin AST ALT Alkaline Phosphatase Total Protein Albumin Free T4 0.47 L D 04/18/16 04/19/16 04/19/16 14:10 06:35 06:35 WBC RBC Hgb Hct MCV MCHC RDW Plt Count MPV Neutrophils % Lymphocytes % Monocytes % Eosinophils % Basophils % Retic Count 2.16 H D INR Sodium 139 136 Potassium 3.8 4.6 D Chloride 98 100 Carbon Dioxide 30 31 Anion Gap 11 5 L BUN 17 D 15 Creatinine 1.1 H 1.1 H Random Glucose 108 H 89 Calcium 8.1 L 8.0 L Ferritin 40.822 Total Bilirubin 0.6 D Direct Bilirubin 0.2 AST 79 H ALT 64 Alkaline Phosphatase 130 H Total Protein 6.9 Albumin 3.7 Free T4 04/19/16 06:35 WBC 7.3 RBC 3.48 L Hgb 10.6 L Hct 30.9 L MCV 88.9 MCHC 34.3 RDW 15.0 Plt Count 176 MPV 7.6 Neutrophils % 68.3 Lymphocytes % 21.7 Monocytes % 6.4 Eosinophils % 2.5 Basophils % 1.1 Retic Count INR Sodium Potassium Chloride Carbon Dioxide Anion Gap BUN Creatinine Random Glucose Calcium Ferritin Total Bilirubin Direct Bilirubin AST ALT Alkaline Phosphatase Total Protein Albumin Free T4 PHYSICAL EXAMINATION: Constitutional: Alert. Cardiovascular: Regular rate and rhythm. There is a 2/6 systolic murmur. Respiratory: Bilateral rhonchi. Extremities: No edema. Neurological: Alert. ASSESSMENT & PLAN: - Clinically stable. - Chart reviewed. - Continue present care. - H/H stable. - Scheduled for endoscopy tomorrow. - Patient is on detention anticoagulation and ASA- Need to maintain on both, as per PMD. - Dr. Maher- Covering for Dr. Lr. Problem List - Problems (1) Anemia Code(s): D64.9 - ANEMIA, UNSPECIFIED Qualifiers: Qualified Code(s): D64.9 - Anemia, unspecified (2) Atrial fibrillation Code(s): I48.91 - UNSPECIFIED ATRIAL FIBRILLATION Qualifiers: Qualified Code(s): I48.0 - Paroxysmal atrial fibrillation (3) Disturbances of vision, late effect of stroke Code(s): I69.398 - OTHER SEQUELAE OF CEREBRAL INFARCTION H53.9 - UNSPECIFIED VISUAL DISTURBANCE (4) Hypertensive arteriosclerotic cardiovascular disease Code(s): I11.9 - HYPERTENSIVE HEART DISEASE WITHOUT HEART FAILURE (5) Lipidemia Code(s): E78.5 - HYPERLIPIDEMIA, UNSPECIFIED Qualifiers: Qualified Code(s): E78.5 - Hyperlipidemia, unspecified (6) Hypothyroid Code(s): E03.9 - HYPOTHYROIDISM, UNSPECIFIED Qualifiers: Qualified Code(s): E03.9 - Hypothyroidism, unspecified (7) Atherosclerosis of arteries Code(s): I70.8 - ATHEROSCLEROSIS OF OTHER ARTERIES (8) History of smoking 30 or more pack years Code(s): Z87.891 - PERSONAL HISTORY OF NICOTINE DEPENDENCE (9) Glaucoma (increased eye pressure) Code(s): H40.9 - UNSPECIFIED GLAUCOMA Qualifiers: Qualified Code(s): H40.9 - Unspecified glaucoma (10) Transaminasemia Code(s): R74.0 - NONSPEC ELEV OF LEVELS OF TRANSAMNS & LACTIC ACID DEHYDRGNSE Documentation prepared by Romina Figueroa, acting as a medical physiologist for Subhash Maher MD
[2016-04-19] MEDS: ASPIRIN COATED 81 MG TABLET.EC PO SCH ×2 (11:45→12:35)
[2016-04-19 13:59] LABS: MCH 30.2 pg (25.7-33.7); MEAN PLT VOLUME 7.6 fl (7.5-11.1); PLATELET COUNT 198 K/MM3 (134-434); RDW 15.1 % (11.6-15.6); WHITE BLOOD COUNT 8.5 K/mm3 (4.0-10.0)
[2016-04-19 14:12] LABS: INR 2.66 (0.82-1.09); PROTHROMBIN TIME (PATIENT) 29.9 SEC (9.98-11.88)
[2016-04-19 14:39] LABS: CALCIUM 8.1 mg/dL (8.5-10.1); CREATININE 1.1 mg/dL (0.55-1.02)
[2016-04-19] MEDS: WARFARIN NA 2 MG TABLET (UD) PO SCH (17:04)
[2016-04-19] MEDS ORDERED: MIRTAZAPINE 15 MG TABLET (FP) ONE (21:37)
[2016-04-19] MEDS: ATORVASTATIN CA 20 MG TABLET (FP) PO SCH (22:10)
[2016-04-19] MEDS: MIRTAZAPINE 30 MG TABLET (FP) PO SCH (22:10)
[2016-04-20 06:06] LABS: HEP B SURFACE AB Non Reactive (.); SERUM IRON 67 ug/dL (27-139); TOTAL IRON BINDING CAPACITY 377 ug/dL (250-450); UIBC 310 ug/dL (118-369)
[2016-04-20] MEDS: POLYETHYLENE GLYCOL 3350 119 GM BTL PO SCH ×3 (06:19→22:10)
[2016-04-20] MEDS: LEVOTHYROXINE NA 50 MCG TABLET (FP) PO SCH (06:20)
[2016-04-20] MEDS ORDERED: PT OWN MED DRAWER 7, Y5N ONE ×2 (09:15→17:22)
[2016-04-20] MEDS: ASPIRIN COATED 81 MG TABLET.EC PO SCH ×2 (09:31→13:29)
[2016-04-20] MEDS: amLODIPine BESYLATE 5 MG TABLET (FP) PO SCH ×3 (09:32→22:09)
[2016-04-20] MEDS: MAGNESIUM CL 64 MG TABLET.SA PO SCH ×2 (09:32→13:28)
[2016-04-20] MEDS: TIMOLOL 0.5% OPHTHALMIC SOL 5 ML BOTTLE OU SCH ×2 (09:32→13:28)
[2016-04-20] MEDS: PANTOPRAZOLE 20 MG TABLET (FP) PO SCH ×2 (09:32→13:27)
[2016-04-20] MEDS: METOPROLOL SUCCINATE 25 MG TAB.SR.24H (FP) PO SCH ×2 (09:33→13:28)
[2016-04-20] MEDS ORDERED: LIDOCAINE HCL/PF 1% SDV 5ML VIAL ONE (09:44)
[2016-04-20] MEDS ORDERED: PROPOFOL 20 ML ONE ×3 (09:44)
[2016-04-20 10:54] LABS: INR 2.61 (0.82-1.09); PROTHROMBIN TIME (PATIENT) 29.3 SEC (9.98-11.88)
--- NOTE | 2016-04-20 11:55 | PN ---
Progress Note (short form) - Note Progress Note: EGD/Colonoscopy report in chart No source of bleeding identified Capsule endoscopy as outpatient if persistent worsening anemia and guaiac + stool persists
[2016-04-20 14:34] LABS: INR 2.64 (0.82-1.09); MCH 30.3 pg (25.7-33.7); MCHC 33.7 g/dl (32.0-36.0); MEAN PLT VOLUME 7.9 fl (7.5-11.1); PLATELET COUNT 175 K/MM3 (134-434); PROTHROMBIN TIME (PATIENT) 29.6 SEC (9.98-11.88); RDW 15.1 % (11.6-15.6); WHITE BLOOD COUNT 8.2 K/mm3 (4.0-10.0)
[2016-04-20 14:39] LABS: CALCIUM 7.9 mg/dL (8.5-10.1); CREATININE 1.1 mg/dL (0.55-1.02)
--- NOTE | 2016-04-20 15:05 | PN ---
Progress Note (short form) - Note Progress Note: Current Medications Generic Name Dose Route Start Last Admin Trade Name Frenas PRN Reason Stop Dose Admin Acetaminophen 650 mg 04/19/16 01:26 Tylenol - PO Q6H PRN FEVER OR PAIN Amlodipine Besylate 5 mg 04/18/16 10:00 04/20/16 13:27 Norvasc - PO 5 mg BID [facility] Administration Aspirin 162 mg 04/18/16 14:00 04/20/16 13:29 Ecotrin - PO 162 mg DAILY [facility] Administration Atorvastatin Calcium 20 mg 04/18/16 22:00 04/19/16 22:10 Lipitor - PO 20 mg HS [facility] Administration Levothyroxine Sodium 50 mcg 04/19/16 07:00 04/20/16 06:20 Synthroid - PO 50 mcg DAILY@0700 [facility] Administration Magnesium Chloride 64 mg 04/18/16 10:00 04/20/16 13:28 Slow-Mag - PO 64 mg DAILY [facility] Administration Metoprolol Succinate 25 mg 04/18/16 10:00 04/20/16 13:28 Toprol Xl - PO 25 mg DAILY [facility] Administration Mirtazapine 30 mg 04/18/16 22:00 04/19/16 22:10 Remeron - PO 30 mg HS [facility] Administration Pantoprazole Sodium 20 mg 04/18/16 10:00 04/20/16 13:27 Protonix - PO 20 mg DAILY [facility] Administration Polyethylene Glycol 17 gm 04/18/16 14:00 04/20/16 13:29 Miralax (For Daily Use) - PO 17 gm TID [facility] Administration Timolol Maleate 1 drop 04/18/16 10:00 04/20/16 13:28 Timoptic 0.5% OU 1 drop DAILY [facility] Administration Warfarin Sodium 4 mg 04/17/16 20:00 04/19/16 17:04 Coumadin - PO 4 mg DAILY@1800 [facility] Administration Laboratory Results - last 24 hr 04/18/16 04/19/16 04/19/16 11:00 06:35 19:00 WBC RBC Hgb Hct MCV MCHC RDW Plt Count MPV INR Sodium Potassium Chloride Carbon Dioxide Anion Gap BUN Creatinine Random Glucose Calcium Iron 67 TIBC 377 Iron Saturation 18 Erythropoietin Cancelled Stool Occult Blood Negative Hepatitis A Ab Total Negative Hep Bs Antigen Negative Hep Bs Antibody Non reactive Hep B Core Total Ab Negative Hepatitis C Antibody 0.2 04/20/16 04/20/16 04/20/16 10:35 13:40 13:40 WBC 8.2 RBC 3.42 L Hgb 10.4 L Hct 30.8 L MCV 90.0 MCHC 33.7 RDW 15.1 Plt Count 175 MPV 7.9 INR 2.61 H 2.64 H Sodium Potassium Chloride Carbon Dioxide Anion Gap BUN Creatinine Random Glucose Calcium Iron TIBC Iron Saturation Erythropoietin Stool Occult Blood Hepatitis A Ab Total Hep Bs Antigen Hep Bs Antibody Hep B Core Total Ab Hepatitis C Antibody 04/20/16 13:40 WBC RBC Hgb Hct MCV MCHC RDW Plt Count MPV INR Sodium 136 Potassium 3.8 Chloride 98 Carbon Dioxide 31 Anion Gap 7 L BUN 12 D Creatinine 1.1 H Random Glucose 147 H D Calcium 7.9 L Iron TIBC Iron Saturation Erythropoietin Stool Occult Blood Hepatitis A Ab Total Hep Bs Antigen Hep Bs Antibody Hep B Core Total Ab Hepatitis C Antibody Vital Signs Period Temp Pulse Resp BP Sys/Mccall Pulse Ox Last 24 Hr 97.5 F-98.6 F 54-63 18-20 99-153/43-80 97-100 CC: no new issues; s/p EGD & Colon ``````````````````` skin--no new rashes eyes--eomi lungs--distant heart--RR ext--no edema neuro--alert & coherent ``````````````````````````` summ > anemia--? blood loss, as per GI; could have been due intermittent bleeding, as EGD & Colon did not reveal any definite source. Small intestinal source cannot be r/o; but will continue monitoring as OP; PLAN--Cbc in AM; if stable will d/c > HTn--BP okay > PATF--cont a/c & antiPLT agent > Hypothryoid--back on supplement ~~~~~~~~~~~ Dr Lr Problem List - Problems (1) Anemia Code(s): D64.9 - ANEMIA, UNSPECIFIED Qualifiers: Anemia type: unspecified type Qualified Code(s): D64.9 - Anemia, unspecified (2) Atrial fibrillation Code(s): I48.91 - UNSPECIFIED ATRIAL FIBRILLATION Qualifiers: Atrial fibrillation type: paroxysmal Qualified Code(s): I48.0 - Paroxysmal atrial fibrillation (3) Disturbances of vision, late effect of stroke Code(s): I69.398 - OTHER SEQUELAE OF CEREBRAL INFARCTION H53.9 - UNSPECIFIED VISUAL DISTURBANCE (4) Hypertensive arteriosclerotic cardiovascular disease Code(s): I11.9 - HYPERTENSIVE HEART DISEASE WITHOUT HEART FAILURE (5) Lipidemia Code(s): E78.5 - HYPERLIPIDEMIA, UNSPECIFIED Qualifiers: Hyperlipidemia type: unspecified Qualified Code(s): E78.5 - Hyperlipidemia, unspecified (6) Hypothyroid Code(s): E03.9 - HYPOTHYROIDISM, UNSPECIFIED Qualifiers: Hypothyroidism type: acquired Qualified Code(s): E03.9 - Hypothyroidism, unspecified (7) Atherosclerosis of arteries Code(s): I70.8 - ATHEROSCLEROSIS OF OTHER ARTERIES (8) History of smoking 30 or more pack years Code(s): Z87.891 - PERSONAL HISTORY OF NICOTINE DEPENDENCE (9) Glaucoma (increased eye pressure) Code(s): H40.9 - UNSPECIFIED GLAUCOMA Qualifiers: Glaucoma type: unspecified type Laterality: bilateral Qualified Code(s): H40.9 - Unspecified glaucoma (10) Transaminasemia Code(s): R74.0 - NONSPEC ELEV OF LEVELS OF TRANSAMNS & LACTIC ACID DEHYDRGNSE
[2016-04-20] MEDS: WARFARIN NA 2 MG TABLET (UD) PO SCH (17:23)
[2016-04-20] MEDS ORDERED: MIRTAZAPINE 15 MG TABLET (FP) ONE (21:55)
[2016-04-20] MEDS: ATORVASTATIN CA 20 MG TABLET (FP) PO SCH (22:09)
[2016-04-20] MEDS: MIRTAZAPINE 30 MG TABLET (FP) PO SCH (22:09)
[2016-04-21] MEDS: POLYETHYLENE GLYCOL 3350 119 GM BTL PO SCH (06:23)
[2016-04-21] MEDS: LEVOTHYROXINE NA 50 MCG TABLET (FP) PO SCH (06:24)
[2016-04-21] MEDS ORDERED: PT OWN MED DRAWER 7, Y5N ONE (08:53)
[2016-04-21] MEDS: amLODIPine BESYLATE 5 MG TABLET (FP) PO SCH (09:04)
[2016-04-21] MEDS: TIMOLOL 0.5% OPHTHALMIC SOL 5 ML BOTTLE OU SCH (09:04)
[2016-04-21] MEDS: PANTOPRAZOLE 20 MG TABLET (FP) PO SCH (09:04)
[2016-04-21] MEDS: MAGNESIUM CL 64 MG TABLET.SA PO SCH (09:04)
[2016-04-21] MEDS: METOPROLOL SUCCINATE 25 MG TAB.SR.24H (FP) PO SCH (09:04)
[2016-04-21] MEDS: ASPIRIN COATED 81 MG TABLET.EC PO SCH (09:04)
[2016-04-21 10:25] LABS: MCH 30.3 pg (25.7-33.7); MCHC 33.4 g/dl (32.0-36.0); MEAN CELL VOLUME 90.6 fl (80-96); MEAN PLT VOLUME 7.8 fl (7.5-11.1); PLATELET COUNT 182 K/MM3 (134-434); RDW 14.5 % (11.6-15.6); WHITE BLOOD COUNT 6.6 K/mm3 (4.0-10.0)
[2016-04-21 10:29] LABS: CREATININE 1.4 mg/dL (0.55-1.02)
--- NOTE | 2016-04-21 13:02 | DS ---
Physical Examination Vital Signs: Vital Signs Temperature 98.8 F 04/21/16 07:16 Pulse Rate 55 L 04/21/16 07:16 Respiratory Rate 20 04/21/16 07:16 Blood Pressure 134/54 04/21/16 07:16 O2 Sat by Pulse Oximetry (%) 100 04/20/16 21:00 Constitutional: Yes: Well Nourished, No Distress, Calm Eyes: Yes: Conjunctiva Clear Neck: Yes: WNL Cardiovascular: Yes: Bradycardia Respiratory: Yes: Regular Gastrointestinal: Yes: Soft Extremities: Yes: WNL Edema: No Integumentary: Yes: WNL Neurological: Yes: Alert ...Motor Strength: WNL Psychiatric: Yes: WNL Labs: CBC, BMP 04/21/16 09:45 04/21/16 09:45 Discharge Summary Reason For Visit: ANEMIA Current Active Problems Anemia (Acute) Atherosclerosis of arteries (Acute) Disturbances of vision, late effect of stroke (Acute) Glaucoma (increased eye pressure) (Acute) History of smoking 30 or more pack years (Acute) Hypertensive arteriosclerotic cardiovascular disease (Acute) Hypothyroid (Acute) Lipidemia (Acute) Occult blood in stools (Acute) Transaminasemia (Acute) Procedures: Principal: egd & colonoscopy Other Procedures: PC transfusion Hospital Course: founbd to be severely anemic by routine screen about 1 week after being d/c from SNF. She is on aspirin & Warf for ATF and stroke prevention. She was transfused. She was found to have stools (+) for OB by ANDREY, after initial negative testing. She had no GI complaints. US of abd was unremarkable, EGD showed hiatal hernia. No Colonoc tumors were identified. She was stable post procedure. H/H did not drop anymore. She was kept on ASA and Warf; and will be monitored as OP. It was noted that her TSH was high but was due to her not having been on thyroid hormone. This was restarted. Condition: Good - Instructions Diet, Activity, Other Instructions: low salt Referrals: Eduardo Lr MD [Primary Care Provider] - Disposition: HOME - Home Medications Comprehensive Discharge Medication List: Ambulatory Orders Amlodipine Besylate [Norvasc -] 10 mg PO DAILY 04/17/16 Aspirin [Aspirin EC] 325 mg PO DAILY 04/17/16 Atorvastatin Ca [Lipitor] 20 mg PO HS 04/17/16 Famotidine [Heartburn Prevention] 20 mg PO DAILY 04/17/16 Magnesium Oxide [Magnesium] 400 mg PO DAILY 04/17/16 Metoprolol Succinate [Toprol XL -] 25 mg PO BID 04/17/16 Timolol 0.5% [Timoptic 0.5%] 1 drop OU DAILY 04/17/16 Warfarin Sodium [Coumadin] 4 mg PO HS 04/17/16 Acetaminophen [Tylenol .Regular Strength -] 650 mg PO Q6H PRN #0 tablet Levothyroxine Sodium [Levo-T] 100 mcg PO DAILY #30 tablet 04/21/16 Mirtazapine 15 mg PO HS #30 tablet 04/21/16
[2016-04-21 13:07] VITALS: BP 144/58; PULSE 60; TEMP 98.1
== END 2016-04-21 13:21 | disposition home or self-care (01) | DRG 812 ==
LOC: JER 10:47 → JERBED 15:19 → J5S 17:13
PROVIDERS: ADMIT Internal Medicine; ATTEND Internal Medicine
PROC: 30233N1 Transfusion of Nonautologous Red Blood Cells into Peripheral Vein, Percutaneous Approach (ICD-10-PCS; 2016-04-17)
PROC: 0DJ08ZZ Inspection of Upper Intestinal Tract, Via Natural or Artificial Opening Endoscopic (ICD-10-PCS; 2016-04-20)
PROC: 0DJD8ZZ Inspection of Lower Intestinal Tract, Via Natural or Artificial Opening Endoscopic (ICD-10-PCS; principal; 2016-04-20 10:30)
DX: D64.9 Anemia, unspecified (principal); I25.10 Atherosclerotic heart disease of native coronary artery without angina pectoris; I10 Essential (primary) hypertension; E03.9 Hypothyroidism, unspecified; I48.0 Paroxysmal atrial fibrillation; K44.9 Diaphragmatic hernia without obstruction or gangrene; J44.9 Chronic obstructive pulmonary disease, unspecified; F41.8 Other specified anxiety disorders; G47.09 Other insomnia; K46.9 Unspecified abdominal hernia without obstruction or gangrene; K29.60 Other gastritis without bleeding; M19.90 Unspecified osteoarthritis, unspecified site; H40.9 Unspecified glaucoma; R74.0 Nonspecific elevation of levels of transaminase and lactic acid dehydrogenase [LDH]; Z87.891 Personal history of nicotine dependence; Z86.73 Personal history of transient ischemic attack (TIA), and cerebral infarction without residual deficits
CPT/HCPCS: 36415; 36430; 71010-TC; 76700-TC; 80048; 80053; 80076; 82272; 82668; 82728; 83540; 83550; 83615; 83735; 84439; 84443; 85025; 85027; 85044; 85610; 86038; 86704; 86706; 86708; 86803; 86850; 86900; 86901; 86922; 87340; 93005; 93010; 99282-25; G0008; P9058; Q2037

== ENCOUNTER 2016-06-10 16:03 | Emergency (ER) | payer OTHER ==
--- NOTE | 2016-06-10 16:09 | PDOC ---
Rapid Medical Evaluation Time Seen by Provider: 06/10/16 16:05 Medical Evaluation: Allergies Allergy/AdvReac Type Severity Reaction Status Date / Time No Known Drug Allergies Allergy Verified 04/17/16 11:05 06/10/16 16:06 I have performed a brief in-person evaluation of this patient. The patient presents with a chief complaint of: epistaxis from R nostril since this AM. Pt is on coumadin because of afib. Pertinent physical exam findings:+ minimal active oozing I have ordered the following: The patient will proceed to the ED for further evaluation. 06/10/16 16:10
[2016-06-10 16:11] VITALS: BP 147/58; PULSE 71; TEMP 97.5; BMI 21.6
--- NOTE | 2016-06-10 16:37 | PDOC ---
History of Present Illness - General Chief Complaint: Nasal Bleeding Stated Complaint: NOSE BLEED Time Seen by Provider: 06/10/16 16:05 History Source: Patient Exam Limitations: No Limitations - History of Present Illness Initial Comments: 06/10/16 19:54 75y F hx of afib on coumadin, cva, htn, thyroid disease presents with complaint of epistaxis since wakening this morning - pt denies any lightheadedness, cp, palpitations, bruising, blood per rectum. Pt has history of intermitten tpeistaxis that resolves on its own. No history of instruemtnation/surgeries in the face. pt last had epstaxis 3 weeks ago that resolved spontaneously pt endorses feeling some trickling down her throat occasionally. attempted pressure, ice to the nose/face without improvement. Past History - Past Medical History Allergies/Adverse Reactions: Allergies Allergy/AdvReac Type Severity Reaction Status Date / Time No Known Drug Allergies Allergy Verified 06/10/16 16:08 Home Medications: Ambulatory Orders Amlodipine Besylate [Norvasc -] 10 mg PO DAILY 04/17/16 Aspirin [Aspirin EC] 325 mg PO DAILY 04/17/16 Atorvastatin Ca [Lipitor] 20 mg PO HS 04/17/16 Famotidine [Heartburn Prevention] 20 mg PO DAILY 04/17/16 Magnesium Oxide [Magnesium] 400 mg PO DAILY 04/17/16 Metoprolol Succinate [Toprol XL -] 25 mg PO BID 04/17/16 Timolol 0.5% [Timoptic 0.5%] 1 drop OU DAILY 04/17/16 Warfarin Sodium [Coumadin] 4 mg PO HS 04/17/16 Acetaminophen [Tylenol .Regular Strength -] 650 mg PO Q6H PRN #0 tablet Levothyroxine Sodium [Levo-T] 100 mcg PO DAILY #30 tablet 04/21/16 Mirtazapine 15 mg PO HS #30 tablet 04/21/16 Anemia: No Asthma: No Cancer: No Cardiac Disorders: Yes (A-FIB) CVA: Yes COPD: No CHF: No Dementia: No Diabetes: No GI Disorders: No Disorders: No HTN: Yes Hypercholesterolemia: No Liver Disease: No Seizures: No Thyroid Disease: Yes - Surgical History Abdominal Surgery: Yes (HIATAL HERNIA) Appendectomy: No Cardiac Surgery: No Cholecystectomy: Yes Lung Surgery: No Neurologic Surgery: No Orthopedic Surgery: No - Immunization History Immunization Up to Date: Yes - Psycho/Social/Smoking Cessation Hx Anxiety: No Suicidal Ideation: No Smoking Status: No Smoking History: Former smoker Have you smoked in the past 12 months: No Number of Cigarettes Smoked Daily: 20 If you are a former smoker, when did you quit?: 4 MO AGO Cigars Per Day: 10 Information on smoking cessation initiated: No 'Breaking Loose' booklet given: 03/11/13 Hx Alcohol Use: No Drug/Substance Use Hx: No Substance Use Type: None Hx Substance Use Treatment: No Review of Systems - Review of Systems Able to Perform ROS?: Yes Comments:: 06/10/16 19:57 Constitutional - no reported Fever, Chills, weakness, HEENT: +epistaxis no reported vision changes, sore throat Respiratory: no reported cough, sob, hemoptysis Cardiac: no reported chest pain, palpitations, light headedness, leg swelling Abd/GI: no reported abd pain, nausea, vomiting, blood per rectum, melena, diarrhea : no reported dysuria, frequency, discharge Musculskelatal - no reported back pain, joint swelling skin - no reported bruising, erythema, rash neurological: no reported headache, numbness, focal weakness, tingling, ataxia, weakness hematologic: no reported anemia, easy bruising, easy bleeding *Physical Exam - Vital Signs Last Vital Signs Temp Pulse Resp BP Pulse Ox 97.5 F L 71 19 147/58 100 06/10/16 16:08 06/10/16 16:08 06/10/16 16:08 06/10/16 16:08 06/10/16 16:08 - Physical Exam Comments: 06/10/16 19:57 GENERAL: The patient is awake, alert, and fully oriented, Nontoxic - in no acute distress. HEAD: Normocephalic, atraumatic. EYES: extraocular movements intact, sclera anicteric, conjunctiva clear. ENT: no blood down posterior pharynx, dark blood inthe R nare, Normal voice, Moist mucous membranes. LUNGS: Breath sounds equal, clear to auscultation bilaterally. No wheezes, no rhonchi, no rales. HEART: irregularly irregular NEUROLOGICAL: No facial assymetry, Normal speech, movinga ll 4 extermities spontaneously and symmetrically PSYCH: Normal mood, normal affect. SKIN: Warm, Dry, normal turgor, ED Treatment Course - LABORATORY CBC & Chemistry Diagram: 06/10/16 17:40 06/10/16 17:40 Medical Decision Making - Medical Decision Making 06/10/16 19:19 75y F on coumadin presents with epistaxis stopped after afrin and pressure inr therapeutic will d/c with pmd fu return precautions were discussed A portion of this note was documented by scribe services under my direction. I have reviewed the details of the note, within reason, and agree with the documentation with the following case summary and management plan written by me I discussed the physical exam findings, ancillary test results and final diagnoses with the patient. I answered all of the patient's questions. The patient was satisfied with the care received and felt comfortable with the discharge plan and treatment plan. The patient will call their primary care physician within 24 hours to arrange follow-up and will return to the Emergency Department with any new, persistent or worsening symptoms. 06/10/16 19:58 *DC/Admit/Observation/Transfer Diagnosis at time of Disposition: Epistaxis - Discharge Dispostion Admit: No - Referrals Referrals: Eduardo Lr MD [Primary Care Provider] - - Patient Instructions Printed Discharge Instructions: DI for Nosebleed Additional Instructions: Return to the emergency department immediately with ANY new, persistent or worsening symptoms. You MUST call and follow up with your doctor tomorrow for further evaluation of your symptoms. Results were discussed with you. Please make sure your doctor reviews the results of your emergency evaluation.
[2016-06-10] MEDS ORDERED: OXYMETAZOLINE 0.05% NASAL SOLUTION 15 ML BOTTLE NS ONE (17:02)
[2016-06-10 18:05] LABS: INR 2.17 (0.82-1.09); PROTHROMBIN TIME (PATIENT) 24.2 SEC (9.98-11.88)
[2016-06-10 18:23] LABS: ANION GAP 9 (8-16); BILIRUBIN,TOTAL 0.4 mg/dL (0.2-1.0); CALCIUM 8.6 mg/dL (8.5-10.1); CO2 23 mmol/L (21-32); CREATININE 0.8 mg/dL (0.55-1.02); GLUCOSE,RANDOM 108 mg/dL (74-106); SGOT/AST 17 U/L (15-37); SGPT/ALT 19 U/L (12-78)
[2016-06-10 18:24] LABS: ALK PHOS 103 U/L (45-117); TOT PROT 7.7 g/dl (6.4-8.2)
[2016-06-10 19:29] LABS: BASOPHIL 1.2 % (0-2.0); EOSINOPHIL 1.9 % (0-4.5); MCH 30.1 pg (25.7-33.7); MEAN CELL VOLUME 88.4 fl (80-96); MEAN PLT VOLUME 8.5 fl (7.5-11.1); PLATELET COUNT 235 K/MM3 (134-434); RDW 14.3 % (11.6-15.6); WHITE BLOOD COUNT 9.1 K/mm3 (4.0-10.0)
== END 2016-06-10 19:39 | disposition home or self-care (01) ==
LOC: JER 16:03
DX: R04.0 Epistaxis (principal); I48.91 Unspecified atrial fibrillation; Z79.01 Long term (current) use of anticoagulants; I10 Essential (primary) hypertension; E03.9 Hypothyroidism, unspecified; Z86.73 Personal history of transient ischemic attack (TIA), and cerebral infarction without residual deficits
CPT/HCPCS: 36415; 80053; 85025; 85610; 99283-25

== ENCOUNTER 2016-08-06 10:58 | Observation (INO) | payer OTHER ==
[2016-08-06 11:08] VITALS: BMI 21.7
--- NOTE | 2016-08-06 11:50 | PDOC ---
Attending Attestation - Resident Resident Name: Oliver Thibodeaux - ED Attending Attestation I have performed the following: I have examined & evaluated the patient, The case was reviewed & discussed with the resident, I agree w/resident's findings & plan, Exceptions are as noted - HPI HPI: 76 yo F with multiple medical comorbidities presents s/p fall. She states that she does not recall what happened. She was sitting in a chair, then found herself at the kitchen table this morning. As per home health aide, she was called to the home, found the house to be messy. Patient had a cut with bleeding to her R forearm. Patient states she has mild forearm pain, no other complaints. Denies head trauma, headache, weakness, numbness. She states she takes a blood thinner but cannot recall the name. - Physicial Exam PE: GENERAL: Awake, alert, and fully oriented, in no acute distress HEAD: No signs of trauma EYES: PERRLA, EOMI, sclera anicteric, conjunctiva clear ENT: Auricles normal inspection, hearing grossly normal, nares patent, oropharynx clear without exudates. Moist mucosa NECK: Normal ROM, supple, no lymphadenopathy, JVD, or masses LUNGS: Breath sounds equal, clear to auscultation bilaterally. No wheezes, and no crackles HEART: Regular rate and rhythm, normal S1 and S2, no murmurs, rubs or gallops ABDOMEN: Soft, nontender, normoactive bowel sounds. No guarding, no rebound. No masses EXTREMITIES: Normal range of motion, no edema. No clubbing or cyanosis. No cords, erythema, or tenderness NEUROLOGICAL: Cranial nerves II through XII grossly intact. Normal speech, normal gait SKIN: Warm, Dry, normal turgor, no rashes. +Skin tear to R forearm with oozing of blood. - Medical Decision Making Pt with syncope, unwitnessed, unknown down time. Will send labs including CE, obtain CXR and EKG, and admit.
[2016-08-06] MEDS ORDERED: DIPHTH,PERTUSS(ACELL),TET 0.5 ML DISP.SYRIN IM ONE (11:58)
[2016-08-06 12:32] LABS: MCH 28.1 pg (25.7-33.7); MCHC 32.5 g/dl (32.0-36.0); MEAN CELL VOLUME 86.5 fl (80-96); MEAN PLT VOLUME 8.4 fl (7.5-11.1); PLATELET COUNT 169 K/MM3 (134-434); RDW 17.2 % (11.6-15.6); WHITE BLOOD COUNT 6.9 K/mm3 (4.0-10.0)
[2016-08-06 12:39] LABS: BASOPHIL 1.5 % (0-2.0); EOSINOPHIL 1.1 % (0-4.5); NEUTROPHILS 74.9 % (42.8-82.8)
[2016-08-06 12:43] LABS: ALBUMIN 3.8 g/dl (3.4-5.0); ANION GAP 10 (8-16); BILIRUBIN,TOTAL 0.5 mg/dL (0.2-1.0); CALCIUM 8.1 mg/dL (8.5-10.1); CO2 20 mmol/L (21-32); CREATININE 1.3 mg/dL (0.55-1.02); GLUCOSE,RANDOM 109 mg/dL (74-106); SGOT/AST 46 U/L (15-37); SGPT/ALT 17 U/L (12-78)
[2016-08-06 12:44] LABS: ALK PHOS 95 U/L (45-117); TOT PROT 7.4 g/dl (6.4-8.2); TROPONIN I < 0.02 ng/ml (0.00-0.05)
--- NOTE | 2016-08-06 13:27 | PDOC ---
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 Pt lives at home with [employer]INDING OPERATOR from 10a-5p and is alone at nights. Last events pt remembers is sitting on kitchen table, taking her night time medications. The next thing she remembers is waking up 9:30am at kitchen table with some pain in R arm but otherwise denies any other complaints. When [employer]ING O[employer]ATOR saw pt at 10am she noticed that her home was extremely disheveled and pt does not recall why. At this time pt was brought into ER. Pt denies any JOHNSON, light-headedness, dizziness, CP, palpitations, SOB, dysuria, abd pain, constipation, fevers, chills, nausea, vomiting, trauma to head. Pt feels close to baseline except for pain at skin tear on R arm. Pt states she is compliant with her meds but [employer] indicated that she may be forgetful or over-dosing some of her meds at times. Pt is AAOx3 at this time. Past History - Travel Traveled outside of the country in the last 30 days: No - Past Medical History Allergies/Adverse Reactions: Allergies Allergy/AdvReac Type Severity Reaction Status Date / Time No Known Drug Allergies Allergy Verified 08/06/16 11:00 Home Medications: Ambulatory Orders Amlodipine Besylate [Norvasc -] 10 mg PO DAILY 04/17/16 Aspirin [Aspirin EC] 325 mg PO DAILY 04/17/16 Atorvastatin Ca [Lipitor] 20 mg PO HS 04/17/16 Metoprolol Succinate [Toprol XL -] 25 mg PO BID 04/17/16 Timolol 0.5% [Timoptic 0.5%] 1 drop OU DAILY 04/17/16 Warfarin Sodium [Coumadin] 4 mg PO HS 04/17/16 Acetaminophen [Tylenol .Regular Strength -] 650 mg PO Q6H PRN #0 tablet Levothyroxine Sodium [Levo-T] 100 mcg PO DAILY #30 tablet 04/21/16 Acetazolamide [Diamox -] 250 mg PO BID 08/06/16 Brimonidine Tartrate [Alphagan P 0.1% -] 1 drop OU QID 08/06/16 Mirtazapine 30 mg PO HS 08/06/16 Prednisolone 1% Ophthalmic [Pred Forte 1% -] 1 ml OP QID 08/06/16 Trazodone HCl [Desyrel -] 150 mg PO HS 08/06/16 Anemia: No Asthma: No Cancer: No Cardiac Disorders: Yes (A-FIB) CVA: Yes COPD: No CHF: No Dementia: No Diabetes: No GI Disorders: No Disorders: No HTN: Yes Hypercholesterolemia: No Liver Disease: No Seizures: No Thyroid Disease: Yes - Surgical History Abdominal Surgery: Yes (HIATAL HERNIA) Appendectomy: No Cardiac Surgery: No Cholecystectomy: Yes Lung Surgery: No Neurologic Surgery: No Orthopedic Surgery: No - Immunization History Immunization Up to Date: Yes - Psycho/Social/Smoking Cessation Hx Anxiety: No Suicidal Ideation: No Smoking Status: No Smoking History: Former smoker Have you smoked in the past 12 months: No Number of Cigarettes Smoked Daily: 20 If you are a former smoker, when did you quit?: 2013 Cigars Per Day: 10 Information on smoking cessation initiated: No 'Breaking Loose' booklet given: 03/11/13 Hx Alcohol Use: No Drug/Substance Use Hx: No Substance Use Type: None Hx Substance Use Treatment: No Review of Systems - Review of Systems Able to Perform ROS?: Yes Comments:: 08/06/16 15:16 CONSTITUTIONAL: Absent: fever, chills, diaphoresis, generalized weakness, malaise, loss of appetite CARDIOVASCULAR: +syncope Absent: chest pain, palpitations, irregular heart rate, lightheadedness, peripheral edema RESPIRATORY: Absent: cough, shortness of breath, dyspnea with exertion, orthopnea, wheezing, stridor, hemoptysis GASTROINTESTINAL:Absent: abdominal pain, abdominal distension, nausea, vomiting , diarrhea, constipation, melena, hematochezia GENITOURINARY: Absent: dysuria, frequency, urgency, hesitancy, hematuria, flank pain, genital pain ENDOCRINE:Absent: unexplained weight gain, unexplained weight loss, heat intolerance, cold intolerance NEUROLOGIC: Absent: headache, focal weakness or paresthesias, dizziness, unsteady gait, seizure, bladder or bowel incontinence PSYCHIATRIC: Absent: anxiety, depression, suicidal or homicidal ideation, hallucinations *Physical Exam - Vital Signs Last Vital Signs Temp Pulse Resp BP Pulse Ox 97.9 F 67 18 151/48 100 08/06/16 11:01 08/06/16 11:01 08/06/16 11:01 08/06/16 11:01 08/06/16 11:01 - Physical Exam Comments: 08/06/16 15:19 GENERAL: Well developed, well nourished. Awake and alert. No acute distress. HEENT: Normocephalic, atraumatic. EOMI. No conjunctival pallor. Sclera are non- icteric. Moist mucous membranes. Oropharynx is clear. NECK: Supple. Full ROM. No JVD. CARDIOVASCULAR: Irregularly irregular. No rubs, or gallops. PULMONARY: No evidence of respiratory distress. Lungs clear to auscultation bilaterally. No wheezing, rales or rhonchi. ABDOMINAL: Soft. Non-tender. Non-distended. No rebound or guarding. No organomegaly. Normoactive bowel sounds. MUSCULOSKELETAL: Normal range of motion at all joints. No bony deformities or tenderness. No CVA tenderness. EXTREMITIES: +skin tear on R forearm 3x3 cm. No edema. SKIN: +skin tear on R forearm 3x3 cm. Warm and dry. NEUROLOGICAL: Alert, awake, oriented x3. Cranial nerves 2-12 grossly intact. No motor deficits in the in face, upper extremities and lower extremities. Normal speech. PSYCHIATRIC: Cooperative. Good eye contact. Some mild confusion. 08/06/16 15:23 08/06/16 15:23 Heart Score/ECG Review - ECG Intrepretation Comment:: 08/06/16 15:24 Sinus yamila @ 55bpm ED Treatment Course - LABORATORY CBC & Chemistry Diagram: 08/06/16 12:00 08/06/16 12:00 - ADDITIONAL ORDERS Additional order review: Laboratory Results 08/06/16 12:00 Sodium 136 Potassium 4.5 Chloride 106 Carbon Dioxide 20 L Anion Gap 10 BUN 14 D Creatinine 1.3 H D Creat Clearance w eGFR 39.61 Random Glucose 109 H Calcium 8.1 L Total Bilirubin 0.5 D AST 46 H D ALT 17 Alkaline Phosphatase 95 Creatine Kinase 230 H D CK-MB (CK-2) 2.656 Troponin I < 0.02 Total Protein 7.4 Albumin 3.8 08/06/16 12:00 RBC 3.75 D MCV 86.5 MCHC 32.5 RDW 17.2 H D MPV 8.4 Neutrophils % 74.9 Lymphocytes % 14.8 Monocytes % 7.7 Eosinophils % 1.1 Basophils % 1.5 - Medications Given in the ED: ED Medications Discontinued Medications Generic Name Dose Route Start Last Admin Trade Name Estela PRN Reason Stop Dose Admin Diphtheria/Tetanus/Acell Pertussis 0.5 ml 08/06/16 11:58 08/06/16 12:19 Boostrix - IM 08/06/16 11:59 0.5 ml .ONCE ONE Administration Medical Decision Making - Medical Decision Making 08/06/16 15:25 76 y/o F with sig PMH of Atherosclerosis, hypertension, hypothyroidism, multiple recent CVA, 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 Pt does not recall any events from overnight. Will workup pt with CXR, UA, CBC, CMP, INR. Call also placed out to Dr. Lr, PCP, who also recommends getting head CT. INR: 5.94 CXR: Mild increased interstitial lung markings and cardiomegaly which may reflect mild CHF. Head CT: Interval change. Moderate atrophy and chronic microvascular ischemic changes without gross evidence of acute intracranial pathology. Pt looks have had a syncopal event last night. Will require further investigation to assess for possible causes of syncope. Dr. Lr contacted and spoken to and accepts admission. Cardiology also consulted (Dr. Ward) and pt to placed in obs in telemetry for syncopal event. 08/06/16 16:26 *DC/Admit/Observation/Transfer Diagnosis at time of Disposition: Syncope Qualifiers: Syncope type: unspecified Qualified Code(s): R55 - Syncope and collapse Skin tear of forearm without complication Qualifiers: Encounter type: subsequent encounter Laterality: right Qualified Code(s): S51.811D - Laceration without foreign body of right forearm, subsequent encounter - Discharge Dispostion Condition at time of disposition: Stable Admit: Yes
[2016-08-06 13:28] LABS: PROTHROMBIN TIME (PATIENT) 67.8 SEC (9.98-11.88)
[2016-08-06 13:35] LABS: INR 5.94 (0.82-1.09)
--- NOTE | 2016-08-06 15:07 | CON.CARD ---
Consult Consult Specialty:: Cardiology Referred by:: Dr. Lr Reason for Consultation:: 76F yuliya in after health aid found her this AM with arm bleeding. Possible fall - History of Present Illness Chief Complaint: Possible fall History of Present Illness: 76F with pertinen PMH: History of bilateral CVAs: PAF on coumadin Carotid disease: moderate to severe bilateral Presumed CAD based on Chest CT Severe MR and moderate to severe AR Brought to ER after home health aid found her this AM with bleeding right arm and apartment "a mess." SAND SHOVELER was concerned about possible fall. Patient denies chest pain, SOB, palps. No recollection of event. Denies fever or chills. ECG Sinus yamila 57bpm w/ NSST lateral ST changes. Head CT with no acute pathology. 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: CVA (embolic central retinal artery CVAs) Cardio/Vascular: Yes: AFIB, CAD, HTN, Hyperlipdemia, Other (moderate to severe b /l carotid disease; moderate to severe MR and AR) Pulmonary: Yes: COPD Psych: Yes: Anxiety Musculoskeletal: Yes: Osteoarthritis Endocrine: Yes: Hypothyroidism (following total thyroidectomy for benign disease ) - Past Surgical History Past Surgical History: Yes: Cholecystectomy - Alcohol/Substance Use Hx Alcohol Use: No History of Substance Use: reports: None - Smoking History Smoking history: Former smoker Have you smoked in the past 12 months: No Aproximately how many cigarettes per day: 20 If you are a former smoker, when did you quit?: 2012 - Social History ADL: Support Services 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 [employer] History of Recent Travel: No Home Medications - Allergies Allergies/Adverse Reactions: Allergies Allergy/AdvReac Type Severity Reaction Status Date / Time No Known Drug Allergies Allergy Verified 08/06/16 11:00 - Home Medications Home Medications: Ambulatory Orders Amlodipine Besylate [Norvasc -] 10 mg PO DAILY 04/17/16 Aspirin [Aspirin EC] 325 mg PO DAILY 04/17/16 Atorvastatin Ca [Lipitor] 20 mg PO HS 04/17/16 Metoprolol Succinate [Toprol XL -] 25 mg PO BID 04/17/16 Timolol 0.5% [Timoptic 0.5%] 1 drop OU DAILY 04/17/16 Warfarin Sodium [Coumadin] 4 mg PO HS 04/17/16 Acetaminophen [Tylenol .Regular Strength -] 650 mg PO Q6H PRN #0 tablet Levothyroxine Sodium [Levo-T] 100 mcg PO DAILY #30 tablet 04/21/16 Acetazolamide [Diamox -] 250 mg PO BID 08/06/16 Brimonidine Tartrate [Alphagan P 0.1% -] 1 drop OU QID 08/06/16 Mirtazapine 30 mg PO HS 08/06/16 Prednisolone 1% Ophthalmic [Pred Forte 1% -] 1 ml OP QID 08/06/16 Trazodone HCl [Desyrel -] 150 mg PO HS 08/06/16 Family Disease History - Family Disease History Family Disease History: Heart Disease: Father, Mother, CA: Sister (3 sisters of BRAC positive breast cancer, also ovarian cancer and leukemia) Review of Systems Findings/Remarks: see HPI - Review of Systems Cardiovascular: reports: No Symptoms Respiratory: reports: SOB on Exertion (chronic) Gastrointestinal: denies: No Symptoms, Abdominal Pain, Bloating, Constipation, Diarrhea, Dysphagia, Indigestion, Melena, Nausea, Rectal Bleeding, Vomiting, Vomiting Blood, Other Genitourinary: denies: No Symptoms, Burning, Discharge, Dysuria, Flank Pain, Frequency, Hematuria, Incontinence, Lesions, Menses, Pain, Testicular Mass, Testicular Pain, Testicular Swelling, Urgency, Vaginal Bleeding, Other Breasts: denies: No Symptoms Reported, See HPI, Breast Implants, Discharge from Nipple, Lumps, Pain, Skin Changes, Other Musculoskeletal: denies: No Symptoms, Back Pain, Crepitus, Decreased ROM, Extremity Pain, Joint Pain, Joint Swelling, Muscle Pain, Muscle Cramps, Muscle Weakness, Other Integumentary: denies: No Symptoms, Blister, Bruising, Change in Color, Eczema, Erythema, Incision, Lesions, Lump, Pallor, Pruritis, Rash, Wound, Other Neurological: reports: Confusion Endocrine: denies: No Symptoms, Excessive Sweating, Flushing, Increased Hunger, Increased Thirst, Intolerance to Cold, Intolerance to Heat, Unexplained Weight Gain, Unexplained Weight Loss, Other Hematology/Lymphatic: denies: No Symptoms, Easily Bruised, Excessive Bleeding, Swollen Glands, Other Psychiatric: denies: No Symptoms, Altered Sleep Pattern, Anxiety, Depression, Hallucinations, Panic, Paranoia, Suicidal, Other - Risk Factors Known Risk Factors: Yes: Prior IN /Emb Stroke, Smoking Vital Signs: Vital Signs Temperature 97.9 F 08/06/16 11:01 Pulse Rate 67 08/06/16 11:01 Respiratory Rate 18 08/06/16 11:01 Blood Pressure 151/48 08/06/16 11:01 O2 Sat by Pulse Oximetry (%) 100 08/06/16 11:01 Constitutional: Yes: No Distress Eyes: Yes: Conjunctiva Clear Respiratory: Yes: CTA Bilaterally Gastrointestinal: Yes: Soft Cardiovascular: Yes: Regular Rate and Rhythm JVD: No Carotid Bruit: No PMI: Non-Displaced Heart Sounds: Yes: S1, S2 Murmur: Yes: Systolic Murmur, Diastolic Murmur (audible throughout the precordium) Musculoskeletal: Yes: WNL Extremities: Yes: WNL Edema: No Peripheral Pulses WNL: Yes Neurological: Yes: Alert ...Motor Strength: WNL - Other Data Labs, Other Data: INR, PTT INR 5.94 (0.82-1.09) H* D 08/06/16 12:00 Ejection Fraction %: LVEF > or = 40 % Imaging - Results Cat Scan: Image Reviewed EKG: Image Reviewed Problem List - Problems (1) Skin tear of forearm without complication Assessment/Plan: -possible fall. -?syncope -Telemetry x 24 hours to r/o arrhythmia -Known PAF, would want to assure no pauses or rapid rates. Code(s): S51.819A - LACERATION WITHOUT FOREIGN BODY OF UNSP FOREARM, INIT ENCNTR Qualifiers: Encounter type: initial encounter Laterality: right Qualified Code( s): S51.811A - Laceration without foreign body of right forearm, initial encounter (2) Altered mental status Code(s): R41.82 - ALTERED MENTAL STATUS, UNSPECIFIED Qualifiers: Altered mental status type: unspecified Qualified Code(s): R41.82 - Altered mental status, unspecified (3) Atherosclerosis of arteries Assessment/Plan: -Prior CVAS, known moderate to severe b/l carotid dz -Has been evaluated by Vascular, not candidate for intervention previously -Repeat Carotid Duplex Code(s): I70.8 - ATHEROSCLEROSIS OF OTHER ARTERIES (4) Atrial fibrillation Assessment/Plan: -In sinus -Tele -Hold coumadin as INR is supratherapeutic -Resume when level 2-3 Code(s): I48.91 - UNSPECIFIED ATRIAL FIBRILLATION Qualifiers: Atrial fibrillation type: paroxysmal Qualified Code(s): I48.0 - Paroxysmal atrial fibrillation (5) CVA (cerebral vascular accident) Assessment/Plan: -Chronic -Likely due to PAF -On Coumadin Code(s): I63.9 - CEREBRAL INFARCTION, UNSPECIFIED Qualifiers: CVA mechanism: embolism Laterality of affected vessel: bilateral
[2016-08-06 16:57] LABS: URINE APPEARANCE CLEAR; URINE BILIRUBIN NEGATIVE (NEGATIVE); URINE COLOR LTYELLOW; URINE GLUCOSE (UA) NEGATIVE (NEGATIVE); URINE KETONE NEGATIVE (NEGATIVE); URINE NITRITE NEGATIVE (NEGATIVE); URINE PROTEIN NEGATIVE (NEGATIVE); URINE UROBILINOGEN NEGATIVE E.U./dl (0.2-1.0)
[2016-08-06 16:58] LABS: URINE BLOOD 1+ (NEGATIVE); URINE LEUK ESTERASE 3+ (NEGATIVE)
[2016-08-06 17:05] LABS: URINE BACTERIA RARE /hpf (NONE SEEN); URINE MUCUS RARE; URINE RBC 4 /hpf (0-3); URINE WBC 6 /hpf (3-5)
--- NOTE | 2016-08-06 19:15 | HP ---
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 Pt lives at home with GEOTECHNICAL DEPARTMENT MANAGER from 10a-5p and is alone at nights. DSoes not recall events that happened overnight into this AM. Last PM she recalls having spoken with relative and a "friend" who lives in the same building. She does not recall feeling ill in any way. She remembers is sitting on kitchen table, taking her night time medications. The next thing she remembers is waking up 9:30am at kitchen table with some pain in R arm but otherwise denies any other complaints. When [facility] saw pt at 10am she noticed that her home was extremely disheveled and pt does not recall why and was brought to ER. Its noteworthy to mention that she had been transiently irritable; displaying episodes of confusion, acting distraught well prior to this event. She was seen in the office (for this matter) on 08/03/16, and her VS were stable, but appeared unsettled and a bit disorganized thought-zambrano. She seemed at odds with her caregiver, who could not reason with her. Pt denies any JOHNSON, light- headedness, dizziness, CP, palpitations, SOB, dysuria, abd pain, constipation, fevers, chills, nausea, vomiting, trauma to head. Pt feels close to baseline except for pain at skin tear on R arm. Pt states she is compliant with her meds but GEOTECHNICAL DEPARTMENT MANAGER indicated that she may be forgetful or over-dosing some of her meds at times. Pt is alert to place person at this time. 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: CVA (embolic central retinal artery CVAs) Cardiovascular: Yes: AFIB, CAD, HTN, Hyperlipdemia, Other (moderate to severe b/ l carotid disease; moderate to severe MR and AR) Pulmonary: Yes: COPD Heme/Onc: Yes: Anemia Psych: Yes: Anxiety Musculoskeletal: Yes: Osteoarthritis Endocrine: Yes: Hypothyroidism (following total thyroidectomy for benign disease ) - Past Surgical History Past Surgical History: Yes: Cholecystectomy - Smoking History Smoking history: Former smoker Have you smoked in the past 12 months: No Aproximately how many cigarettes per day: 20 If you are a former smoker, when did you quit?: 2013 - Alcohol/Substance Use Hx Alcohol Use: No History of Substance Use: reports: None - Social History Usual Living Arrangement: Yes: Alone ADL: Support Services 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 [employer] History of Recent Travel: No Home Medications - Allergies Allergies/Adverse Reactions: Allergies Allergy/AdvReac Type Severity Reaction Status Date / Time No Known Drug Allergies Allergy Verified 08/06/16 11:00 - Home Medications Home Medications: Ambulatory Orders Amlodipine Besylate [Norvasc -] 10 mg PO DAILY 04/17/16 Aspirin [Aspirin EC] 325 mg PO DAILY 04/17/16 Atorvastatin Ca [Lipitor] 20 mg PO HS 04/17/16 Metoprolol Succinate [Toprol XL -] 25 mg PO BID 04/17/16 Timolol 0.5% [Timoptic 0.5%] 1 drop OU DAILY 04/17/16 Warfarin Sodium [Coumadin] 4 mg PO HS 04/17/16 Acetaminophen [Tylenol .Regular Strength -] 650 mg PO Q6H PRN #0 tablet Levothyroxine Sodium [Levo-T] 100 mcg PO DAILY #30 tablet 04/21/16 Acetazolamide [Diamox -] 250 mg PO BID 08/06/16 Brimonidine Tartrate [Alphagan P 0.1% -] 1 drop OU QID 08/06/16 Mirtazapine 30 mg PO HS 08/06/16 Prednisolone 1% Ophthalmic [Pred Forte 1% -] 1 ml OP QID 08/06/16 Trazodone HCl [Desyrel -] 150 mg PO HS 08/06/16 Family Disease History - Family Disease History Family Disease History: Heart Disease: Father, Mother, CA: Sister (3 sisters of BRAC positive breast cancer, also ovarian cancer and leukemia) Review of Systems - Review of Systems Constitutional: reports: No Symptoms Eyes: reports: Other (blind (low vision)) HENT: reports: No Symptoms Neck: reports: No Symptoms Cardiovascular: reports: No Symptoms Respiratory: reports: No Symptoms Gastrointestinal: reports: No Symptoms Genitourinary: reports: No Symptoms Breasts: reports: No Symptoms Reported Musculoskeletal: reports: No Symptoms Integumentary: reports: Wound (RUE) Neurological: reports: No Symptoms Endocrine: reports: No Symptoms Hematology/Lymphatic: reports: No Symptoms Psychiatric: reports: Altered Sleep Pattern, Anxiety Physical Examination Vital Signs: Vital Signs Temperature 98.5 F 08/06/16 18:37 Pulse Rate 66 08/06/16 18:37 Respiratory Rate 18 08/06/16 18:37 Blood Pressure 146/60 08/06/16 18:37 O2 Sat by Pulse Oximetry (%) 100 08/06/16 18:37 alert anxious in NAD. skin--mild pallor; abrasion RUE head--NC; no open wounds eyes--asymm gaze; eomi; non injected oral--poor denttion, no droop neck--no masses; transmited M lungs--distant; unlabored heart--RR 2/6 M breasts--no sign masses abd--benign ext--trace edema; no ischemic changes; no CCE neuro--alert; verbal speech is fluent; answers appropriately; thoughts seem well organized; judgment questionable; able to follow commands; no rigidity, tremors; plantars down-going Labs: CBCD WBC 6.9 K/mm3 (4.0-10.0) 08/06/16 12:00 RBC 3.75 M/mm3 (3.60-5.2) D 08/06/16 12:00 Hgb 10.5 GM/dL (10.7-15.3) L D 08/06/16 12:00 Hct 32.5 % (32.4-45.2) D 08/06/16 12:00 MCV 86.5 fl (80-96) 08/06/16 12:00 MCHC 32.5 g/dl (32.0-36.0) 08/06/16 12:00 RDW 17.2 % (11.6-15.6) H D 08/06/16 12:00 Plt Count 169 K/MM3 (134-434) 08/06/16 12:00 MPV 8.4 fl (7.5-11.1) 08/06/16 12:00 CMP Sodium 136 mmol/L (136-145) 08/06/16 12:00 Potassium 4.5 mmol/L (3.5-5.1) 08/06/16 12:00 Chloride 106 mmol/L (98-107) 08/06/16 12:00 Carbon Dioxide 20 mmol/L (21-32) L 08/06/16 12:00 Anion Gap 10 (8-16) 08/06/16 12:00 BUN 14 mg/dL (7-18) D 08/06/16 12:00 Creatinine 1.3 mg/dL (0.55-1.02) H D 08/06/16 12:00 Creat Clearance w eGFR 39.61 (>60) 08/06/16 12:00 Random Glucose 109 mg/dL (74-106) H 08/06/16 12:00 Calcium 8.1 mg/dL (8.5-10.1) L 08/06/16 12:00 Total Bilirubin 0.5 mg/dL (0.2-1.0) D 08/06/16 12:00 AST 46 U/L (15-37) H D 08/06/16 12:00 ALT 17 U/L (12-78) 08/06/16 12:00 Alkaline Phosphatase 95 U/L (45-117) 08/06/16 12:00 Total Protein 7.4 g/dl (6.4-8.2) 08/06/16 12:00 Albumin 3.8 g/dl (3.4-5.0) 08/06/16 12:00 CARDIAC ENZYMES Creatine Kinase 230 IU/L (26-192) H D 08/06/16 12:00 Troponin I < 0.02 ng/ml (0.00-0.05) 08/06/16 12:00 INR, PTT INR 5.94 (0.82-1.09) H* D 08/06/16 12:00 Urine Test Results Urine Color Ltyellow 08/06/16 16:50 Urine Appearance Clear 08/06/16 16:50 Urine pH 7.0 (5.0-8.0) D 08/06/16 16:50 Urine Protein Negative (NEGATIVE) 08/06/16 16:50 Urine Glucose (UA) Negative (NEGATIVE) 08/06/16 16:50 Urine Ketones Negative (NEGATIVE) 08/06/16 16:50 Urine Blood 1+ (NEGATIVE) H 08/06/16 16:50 Urine Nitrite Negative (NEGATIVE) 08/06/16 16:50 Urine Bilirubin Negative (NEGATIVE) 08/06/16 16:50 Ur Leukocyte Esterase 3+ (NEGATIVE) H D 08/06/16 16:50 Urine RBC 4 /hpf (0-3) 08/06/16 16:50 Urine WBC 6 /hpf (3-5) 08/06/16 16:50 Ur Epithelial Cells Many /hpf (FEW) 08/06/16 16:50 Urine Bacteria Rare /hpf (NONE SEEN) 08/06/16 16:50 Urine Mucus Rare 08/06/16 16:50 Imaging - Results Chest X-ray: Report Reviewed EKG: Report Reviewed Problem List - Problems (1) Altered mental status Assessment/Plan: seemed to have gotten acutely disoriented & agitated; and possibly injured herself accidentally; cannot be sure if she syncopized or collapsed. She did have a previous syncopal event (out doors) which was due to an acute ischemic CVA. Could be toxic metabolic issue or could also be medication related; as she takes a PM sedating agent (trazadone). PLAN: hold Trazadone; neuro checks, observe on Monitor. Code(s): R41.82 - ALTERED MENTAL STATUS, UNSPECIFIED Qualifiers: Altered mental status type: delirium Qualified Code(s): R41.0 - Disorientation, unspecified (2) Atrial fibrillation Assessment/Plan: On BB & a-c; INR high; will hold for now and monitor on Tele Code(s): I48.91 - UNSPECIFIED ATRIAL FIBRILLATION Qualifiers: Atrial fibrillation type: paroxysmal Qualified Code(s): I48.0 - Paroxysmal atrial fibrillation (3) GUS (cerebral atherosclerosis) Assessment/Plan: etablished by vascular imaging at the time of her initial CVA; the condition is extensive and she then sustained another embolic event while on ASA & Warfrin. She remains at risk for further such events PLAN: cont a-c & BP control Code(s): I67.2 - CEREBRAL ATHEROSCLEROSIS (4) Anemia Assessment/Plan: previous blood loss (nose bleed); H/h is at near baseline Code(s): D64.9 - ANEMIA, UNSPECIFIED Qualifiers: Anemia type: other cause Other causes of anemia: other cause, not classified Qualified Code(s): D64.89 - Other specified anemias (5) Atherosclerosis of arteries Assessment/Plan: chronic; diffuse Code(s): I70.8 - ATHEROSCLEROSIS OF OTHER ARTERIES (6) Hypothyroid Assessment/Plan: TFTs okay; cont replacement Tx Code(s): E03.9 - HYPOTHYROIDISM, UNSPECIFIED Qualifiers: Hypothyroidism type: acquired Qualified Code(s): E03.9 - Hypothyroidism, unspecified (7) Skin tear of forearm without complication Assessment/Plan: 2nd unknown factors; cont topical care. Code(s): S51.819A - LACERATION WITHOUT FOREIGN BODY OF UNSP FOREARM, INIT ENCNTR Qualifiers: Encounter type: subsequent encounter Laterality: right Qualified Code(s): S51.811D - Laceration without foreign body of right forearm, subsequent encounter (8) Disturbances of vision, late effect of stroke Assessment/Plan: resulting in full dependance of care-bookkeeping teacher in order to remain within her home & community Code(s): I69.398 - OTHER SEQUELAE OF CEREBRAL INFARCTION H53.9 - UNSPECIFIED VISUAL DISTURBANCE (9) Hypertensive arteriosclerotic cardiovascular disease Assessment/Plan: BP controlled with current agents; CXR might suggest vol excess; will get BNP; and check serial TNI Code(s): I11.9 - HYPERTENSIVE HEART DISEASE WITHOUT HEART FAILURE (10) Glaucoma (increased eye pressure) Assessment/Plan: cont eye meds Code(s): H40.9 - UNSPECIFIED GLAUCOMA Qualifiers: Glaucoma type: unspecified type Laterality: bilateral Qualified Code(s): H40.9 - Unspecified glaucoma (11) Lipidemia Assessment/Plan: has been on statin Code(s): E78.5 - HYPERLIPIDEMIA, UNSPECIFIED Qualifiers: Hyperlipidemia type: unspecified Qualified Code(s): E78.5 - Hyperlipidemia, unspecified (12) UTI (urinary tract infection) Assessment/Plan: as suggested by UA but denies any SX; will try to get urine culture Code(s): N39.0 - URINARY TRACT INFECTION, SITE NOT SPECIFIED Qualifiers: Urinary tract infection type: site unspecified Hematuria presence: without hematuria Qualified Code(s): N39.0 - Urinary tract infection, site not specified (13) Prolonged INR Assessment/Plan: will need to hold and adjust A-c Code(s): R79.1 - ABNORMAL COAGULATION PROFILE Assessment/Plan 76 y/o with severe visual impairement who was brought to ER following acute confusional state with or without syncope; ~~~~~~~~~~~~~~~~~ Dr Lr..........1 Hr
[2016-08-06 21:35] LABS: TROPONIN I < 0.02 ng/ml (0.00-0.05)
[2016-08-06] MEDS: ATORVASTATIN CA 10 MG TABLET (FP) PO SCH (22:31)
[2016-08-07] MEDS: LEVOTHYROXINE NA 100 MCG TABLET (FP) PO SCH (06:26)
[2016-08-07 07:54] LABS: BASOPHIL 1.1 % (0-2.0); EOSINOPHIL 2.5 % (0-4.5); MCH 27.9 pg (25.7-33.7); MCHC 32.8 g/dl (32.0-36.0); MEAN PLT VOLUME 8.5 fl (7.5-11.1); NEUTROPHILS 67.7 % (42.8-82.8); PLATELET COUNT 169 K/MM3 (134-434); RDW 17.3 % (11.6-15.6); WHITE BLOOD COUNT 6.4 K/mm3 (4.0-10.0)
[2016-08-07 08:14] LABS: INR 3.71 (0.82-1.09); PROTHROMBIN TIME (PATIENT) 41.9 SEC (9.98-11.88)
[2016-08-07 08:42] LABS: CALCIUM 8.6 mg/dL (8.5-10.1); COCKROFT - GAULT 51.272; CREATININE 0.9 mg/dL (0.55-1.02); MAGNESIUM 1.9 mg/dL (1.8-2.4)
[2016-08-07 08:47] LABS: TROPONIN I 0.02 ng/ml (0.00-0.05)
[2016-08-07] MEDS ORDERED: PT OWN MED DRAWER 7, Y5N ONE (08:58)
--- NOTE | 2016-08-07 09:21 | EKG ---
Test Reason : Blood Pressure : / mmHG Vent. Rate : 055 BPM Atrial Rate : 055 BPM P-R Int : 186 ms QRS Dur : 108 ms QT Int : 434 ms P-R-T Axes : 048 034 083 degrees QTc Int : 415 ms SINUS BRADYCARDIA ABNORMAL ECG WHEN COMPARED WITH ECG OF 17-APR-2016 12:42, NO SIGNIFICANT CHANGE WAS FOUND Confirmed by KINZA STEPHENS MD ([id number]) on 08/07/2016 9:21:20 AM Referred By: Confirmed By:KINZA STEPHENS MD
[2016-08-07] MEDS: ASPIRIN 325 MG ENTERIC COATED TABLET (FP) PO SCH (09:44)
[2016-08-07] MEDS: METOPROLOL SUCCINATE 25 MG TAB.SR.24H (FP) PO SCH (09:44)
[2016-08-07] MEDS ORDERED: amLODIPine BESYLATE 5 MG TABLET (FP) PO SCH (10:00)
[2016-08-07] MEDS: TIMOLOL 0.5% OPHTHALMIC SOL 5 ML BOTTLE OU SCH (11:43)
[2016-08-07 12:53] LABS: ERYTHROCYTE SEDIMENTATION RATE 12 mm/hr (0-30)
--- NOTE | 2016-08-07 13:48 | PN ---
Progress Note, Physician Chief Complaint: Pt alert; wants to walk; cries easily. History of Present Illness: 76 yo white F with multiple medical comorbidities presents s/p fall. She states that she does not recall what happened. She was sitting in a chair, then found herself at the kitchen table this morning. As per home health aide, she was called to the home, found the house to be messy. Patient had a cut with bleeding to her R forearm. Patient states she has mild forearm pain, no other complaints. Denies head trauma, headache, weakness, numbness. She states she takes a blood thinner but cannot recall the name. Found to have significant carotid artery stenoses. - Current Medication List Current Medications: Active Medications Amlodipine Besylate (Norvasc -) 5 mg PO DAILY [facility] Last Admin: 08/07/16 09:44 Dose: 5 mg Aspirin (Ecotrin -) 325 mg PO DAILY [facility] Last Admin: 08/07/16 09:44 Dose: 325 mg Atorvastatin Calcium (Lipitor -) 10 mg PO HS [facility] Last Admin: 08/06/16 22:31 Dose: 10 mg Levothyroxine Sodium (Synthroid -) 100 mcg PO DAILY@0700 [facility] Last Admin: 08/07/16 06:26 Dose: 100 mcg Metoprolol Succinate (Toprol Xl -) 25 mg PO DAILY [facility] Last Admin: 08/07/16 09:44 Dose: 25 mg Paroxetine HCl (Paxil -) 10 mg PO DAILY [facility] Timolol Maleate (Timoptic 0.5%) 1 drop OU DAILY [facility] Last Admin: 08/07/16 11:43 Dose: 1 drop - Objective Vital Signs: Vital Signs Temperature 98.2 F 08/07/16 08:15 Pulse Rate 72 08/07/16 08:15 Respiratory Rate 14 08/07/16 08:15 Blood Pressure 130/56 08/07/16 08:15 O2 Sat by Pulse Oximetry (%) 96 08/07/16 09:00 Labs: CBC, BMP 08/07/16 05:35 08/07/16 05:35 INR, PTT INR 3.71 (0.82-1.09) H D 08/07/16 05:35 Problem List - Problems (1) CVA (cerebral vascular accident) Code(s): I63.9 - CEREBRAL INFARCTION, UNSPECIFIED Qualifiers: CVA mechanism: embolism Laterality of affected vessel: bilateral (2) Skin tear of forearm without complication Code(s): S51.819A - LACERATION WITHOUT FOREIGN BODY OF UNSP FOREARM, INIT ENCNTR Qualifiers: Encounter type: subsequent encounter Laterality: right Qualified Code(s): S51.811D - Laceration without foreign body of right forearm, subsequent encounter (3) Syncope Assessment/Plan: f/u with neurology (carotid artery dsease). Code(s): R55 - SYNCOPE AND COLLAPSE Qualifiers: Syncope type: unspecified Qualified Code(s): R55 - Syncope and collapse (4) Carotid stenosis Code(s): I65.29 - OCCLUSION AND STENOSIS OF UNSPECIFIED CAROTID ARTERY (5) Central retinal artery occlusion Code(s): H34.10 - CENTRAL RETINAL ARTERY OCCLUSION, UNSPECIFIED EYE Qualifiers : Laterality: bilateral Qualified Code(s): H34.13 - Central retinal artery occlusion, bilateral (6) Glaucoma (increased eye pressure) Code(s): H40.9 - UNSPECIFIED GLAUCOMA Qualifiers: Glaucoma type: unspecified type Laterality: bilateral Qualified Code(s): H40.9 - Unspecified glaucoma (7) History of smoking 30 or more pack years Code(s): Z87.891 - PERSONAL HISTORY OF NICOTINE DEPENDENCE (8) Hypertensive arteriosclerotic cardiovascular disease Code(s): I11.9 - HYPERTENSIVE HEART DISEASE WITHOUT HEART FAILURE (9) Hypothyroid Code(s): E03.9 - HYPOTHYROIDISM, UNSPECIFIED Qualifiers: Hypothyroidism type: acquired Qualified Code(s): E03.9 - Hypothyroidism, unspecified (10) Lipidemia Assessment/Plan: on statin, with good LDL level. Code(s): E78.5 - HYPERLIPIDEMIA, UNSPECIFIED Qualifiers: Hyperlipidemia type: unspecified Qualified Code(s): E78.5 - Hyperlipidemia, unspecified (11) Paroxysmal atrial fibrillation Assessment/Plan: on metoprolol for HR. On warfarin (restart when needed to keep INR 2-3). Code(s): I48.0 - PAROXYSMAL ATRIAL FIBRILLATION
[2016-08-07] MEDS: PARoxetine HCL 10 MG TABLET (FP) PO SCH (15:48)
[2016-08-07] MEDS ORDERED: POTASSIUM CHLORIDE TABS 20 MEQ TABLET.ER (FP) PO ONE (16:04)
--- NOTE | 2016-08-07 16:29 | PN ---
Progress Note (short form) - Note Progress Note: Current Medications Amlodipine Besylate (Norvasc -) 10 mg PO DAILY [facility] Aspirin (Ecotrin -) 325 mg PO DAILY [facility] Last Admin: 08/07/16 09:44 Dose: 325 mg Atorvastatin Calcium (Lipitor -) 10 mg PO HS [facility] Last Admin: 08/06/16 22:31 Dose: 10 mg Levothyroxine Sodium (Synthroid -) 100 mcg PO DAILY@0700 [facility] Last Admin: 08/07/16 06:26 Dose: 100 mcg Metoprolol Succinate (Toprol Xl -) 25 mg PO DAILY [facility] Last Admin: 08/07/16 09:44 Dose: 25 mg Paroxetine HCl (Paxil -) 10 mg PO DAILY [facility] Last Admin: 08/07/16 15:48 Dose: 10 mg Potassium Chloride (K-Dur -) 20 meq PO ONCE ONE Stop: 08/07/16 16:05 Timolol Maleate (Timoptic 0.5%) 1 drop OU DAILY [facility] Last Admin: 08/07/16 11:43 Dose: 1 drop Warfarin Sodium (Coumadin -) 1 mg PO DAILY@1800 [facility] Zolpidem Tartrate (Ambien -) 5 mg PO HS ONE Stop: 08/07/16 22:01 Laboratory Results - last 24 hr 08/06/16 08/06/16 08/07/16 16:50 20:46 05:35 WBC RBC Hgb Hct MCV MCHC RDW Plt Count MPV Neutrophils % Lymphocytes % Monocytes % Eosinophils % Basophils % ESR INR 3.71 H D Sodium Potassium Chloride Carbon Dioxide Anion Gap BUN Creatinine POC Glucometer Random Glucose Hemoglobin A1c % Calcium Magnesium Creatine Kinase 143 Troponin I < 0.02 B-Natriuretic Peptide 897.47 H Triglycerides Cholesterol Total LDL Cholesterol HDL Cholesterol Urine Color Ltyellow Urine Appearance Clear Urine pH 7.0 D Ur Specific [place] 1.015 Urine Protein Negative Urine Glucose (UA) Negative Urine Ketones Negative Urine Blood 1+ H Urine Nitrite Negative Urine Bilirubin Negative Urine Urobilinogen Negative Ur Leukocyte Esterase 3+ H D Urine RBC 4 Urine WBC 6 Ur Epithelial Cells Many Urine Bacteria Rare Urine Mucus Rare 08/07/16 08/07/16 08/07/16 05:35 05:35 05:35 WBC 6.4 RBC 3.79 Hgb 10.6 L Hct 32.2 L MCV 85.0 MCHC 32.8 RDW 17.3 H Plt Count 169 MPV 8.5 Neutrophils % 67.7 Lymphocytes % 21.0 D Monocytes % 7.7 Eosinophils % 2.5 D Basophils % 1.1 ESR 12 INR Sodium 138 Potassium 3.3 L D Chloride 103 Carbon Dioxide 25 D Anion Gap 10 BUN 15 Creatinine 0.9 D POC Glucometer Random Glucose 103 Hemoglobin A1c % 5.4 D Calcium 8.6 Magnesium 1.9 Creatine Kinase 135 Troponin I 0.02 B-Natriuretic Peptide Triglycerides 71 D Cholesterol 102 D Total LDL Cholesterol 52 HDL Cholesterol 43 D Urine Color Urine Appearance Urine pH Ur Specific [place] Urine Protein Urine Glucose (UA) Urine Ketones Urine Blood Urine Nitrite Urine Bilirubin Urine Urobilinogen Ur Leukocyte Esterase Urine RBC Urine WBC Ur Epithelial Cells Urine Bacteria Urine Mucus 08/07/16 08/07/16 05:35 06:20 WBC RBC Hgb Hct MCV MCHC RDW Plt Count MPV Neutrophils % Lymphocytes % Monocytes % Eosinophils % Basophils % ESR INR Sodium Potassium Chloride Carbon Dioxide Anion Gap BUN Creatinine POC Glucometer 119 Random Glucose Hemoglobin A1c % Calcium Magnesium Creatine Kinase Troponin I B-Natriuretic Peptide Triglycerides Cancelled Cholesterol Cancelled Total LDL Cholesterol Cancelled HDL Cholesterol Cancelled Urine Color Urine Appearance Urine pH Ur Specific [place] Urine Protein Urine Glucose (UA) Urine Ketones Urine Blood Urine Nitrite Urine Bilirubin Urine Urobilinogen Ur Leukocyte Esterase Urine RBC Urine WBC Ur Epithelial Cells Urine Bacteria Urine Mucus Vital Signs Temperature 98.2 F 08/07/16 14:00 Pulse Rate 70 08/07/16 14:00 Respiratory Rate 20 08/07/16 14:00 Blood Pressure 155/58 08/07/16 14:00 O2 Sat by Pulse Oximetry (%) 96 08/07/16 09:00 :: didn't sleep too well last PM ``````````````````````````````` skin--no acute lesions eyes--midline heart--RR w/ m lungs--grossly clear ext--trace edema neuro--awake; calm seems coherent; thoughts organized; no focal deficits appreciated ````````````````````````````````` Summ > acute MS changes--not sure if it was neuro-psych effect from meds; or if it was hemodynamically related (arrhythmia) in some way; HR has been stable on tele ; Bradycardia is minimal; no rapid rhythms. 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; will start Paxil 10mg > insomnia--chronic; will use Ambien while an inpatient for immediate effect > correction use A/c & ASA--for stroke prevention > anemia--Hgb seems stable; will check ferritin ~~~~~~~~~~~~~~~~~~ Dr Lr Problem List - Problems (1) Altered mental status Code(s): R41.82 - ALTERED MENTAL STATUS, UNSPECIFIED Qualifiers: Altered mental status type: delirium Qualified Code(s): R41.0 - Disorientation, unspecified (2) Atrial fibrillation Code(s): I48.91 - UNSPECIFIED ATRIAL FIBRILLATION Qualifiers: Atrial fibrillation type: paroxysmal Qualified Code(s): I48.0 - Paroxysmal atrial fibrillation (3) GUS (cerebral atherosclerosis) Code(s): I67.2 - CEREBRAL ATHEROSCLEROSIS (4) Anemia Code(s): D64.9 - ANEMIA, UNSPECIFIED Qualifiers: Anemia type: other cause Other causes of anemia: other cause, not classified Qualified Code(s): D64.89 - Other specified anemias (5) Atherosclerosis of arteries Code(s): I70.8 - ATHEROSCLEROSIS OF OTHER ARTERIES (6) Hypothyroid Code(s): E03.9 - HYPOTHYROIDISM, UNSPECIFIED Qualifiers: Hypothyroidism type: acquired Qualified Code(s): E03.9 - Hypothyroidism, unspecified (7) Skin tear of forearm without complication Code(s): S51.819A - LACERATION WITHOUT FOREIGN BODY OF UNSP FOREARM, INIT ENCNTR Qualifiers: Encounter type: subsequent encounter Laterality: right Qualified Code(s): S51.811D - Laceration without foreign body of right forearm, subsequent encounter (8) Disturbances of vision, late effect of stroke Code(s): I69.398 - OTHER SEQUELAE OF CEREBRAL INFARCTION H53.9 - UNSPECIFIED VISUAL DISTURBANCE (9) Hypertensive arteriosclerotic cardiovascular disease Code(s): I11.9 - HYPERTENSIVE HEART DISEASE WITHOUT HEART FAILURE (10) Glaucoma (increased eye pressure) Code(s): H40.9 - UNSPECIFIED GLAUCOMA Qualifiers: Glaucoma type: unspecified type Laterality: bilateral Qualified Code(s): H40.9 - Unspecified glaucoma (11) Lipidemia Code(s): E78.5 - HYPERLIPIDEMIA, UNSPECIFIED Qualifiers: Hyperlipidemia type: unspecified Qualified Code(s): E78.5 - Hyperlipidemia, unspecified (12) UTI (urinary tract infection) Code(s): N39.0 - URINARY TRACT INFECTION, SITE NOT SPECIFIED Qualifiers: Urinary tract infection type: site unspecified Hematuria presence: without hematuria Qualified Code(s): N39.0 - Urinary tract infection, site not specified (13) Prolonged INR Code(s): R79.1 - ABNORMAL COAGULATION PROFILE
[2016-08-07] MEDS ORDERED: WARFARIN NA 1 MG TABLET (FP) PO SCH (18:00)
[2016-08-07] MEDS: ATORVASTATIN CA 10 MG TABLET (FP) PO SCH (21:12)
[2016-08-07 21:52] LABS: TROPONIN I < 0.02 ng/ml (0.00-0.05)
[2016-08-07] MEDS ORDERED: ZOLPIDEM TARTRATE 5 MG TABLET PO ONE (22:00)
[2016-08-08] MEDS ORDERED: PT OWN MED DRAWER 7, Y5N ONE ×2 (04:02→08:59)
[2016-08-08] MEDS: LEVOTHYROXINE NA 100 MCG TABLET (FP) PO SCH (06:21)
[2016-08-08 08:04] LABS: INR 2.06 (0.82-1.09)
[2016-08-08 08:09] LABS: MCH 28.2 pg (25.7-33.7); MCHC 33.5 g/dl (32.0-36.0); MEAN CELL VOLUME 84.3 fl (80-96); MEAN PLT VOLUME 8.5 fl (7.5-11.1); PLATELET COUNT 181 K/MM3 (134-434); WHITE BLOOD COUNT 8.1 K/mm3 (4.0-10.0)
[2016-08-08 08:51] LABS: CALCIUM 8.4 mg/dL (8.5-10.1); COCKROFT - GAULT 57.681; CREATININE 0.8 mg/dL (0.55-1.02); FERRITIN 33.543 ng/ml (6.9-282.5)
--- NOTE | 2016-08-08 09:16 | PN ---
Progress Note, Physician Chief Complaint: Pt alert; OOB in chair; little appetite this morning; no chest pain or dyspnea. History of Present Illness: 76 yo white F with multiple medical comorbidities presents s/p fall. She states that she does not recall what happened. She was sitting in a chair, then found herself at the kitchen table this morning. As per home health aide, she was called to the home, found the house to be messy. Patient had a cut with bleeding to her R forearm. Patient states she has mild forearm pain, no other complaints. Denies head trauma, headache, weakness, numbness. She states she takes a blood thinner but cannot recall the name. Found to have significant carotid artery stenoses. - Current Medication List Current Medications: Active Medications Amlodipine Besylate (Norvasc -) 10 mg PO DAILY [facility] Aspirin (Ecotrin -) 325 mg PO DAILY [facility] Last Admin: 08/07/16 09:44 Dose: 325 mg Atorvastatin Calcium (Lipitor -) 10 mg PO HS [facility] Last Admin: 08/07/16 21:12 Dose: 10 mg Levothyroxine Sodium (Synthroid -) 100 mcg PO DAILY@0700 [facility] Last Admin: 08/08/16 06:21 Dose: 100 mcg Metoprolol Succinate (Toprol Xl -) 25 mg PO DAILY [facility] Last Admin: 08/07/16 09:44 Dose: 25 mg Paroxetine HCl (Paxil -) 10 mg PO DAILY [facility] Last Admin: 08/07/16 15:48 Dose: 10 mg Timolol Maleate (Timoptic 0.5%) 1 drop OU DAILY [facility] Last Admin: 08/07/16 11:43 Dose: 1 drop Warfarin Sodium (Coumadin -) 1 mg PO DAILY@1800 [facility] Last Admin: 08/07/16 17:09 Dose: 1 mg - Objective Vital Signs: Vital Signs Temperature 98.2 F 08/08/16 02:00 Pulse Rate 65 08/08/16 06:48 Respiratory Rate 16 08/08/16 02:00 Blood Pressure 151/83 08/08/16 06:48 O2 Sat by Pulse Oximetry (%) 96 08/07/16 21:00 Constitutional: Yes: Calm Eyes: Yes: Other ("blind" in one eye, poor sight in thte other) HENT: Yes: WNL Neck: Yes: WNL Cardiovascular: Yes: Regular Rate and Rhythm Respiratory: Yes: Regular Gastrointestinal: Yes: Soft ...Rectal Exam: Yes: Deferred Genitourinary: Yes: Anuria Breast(s): Yes: WNL Musculoskeletal: Yes: Muscle Weakness Extremities: Yes: WNL Edema: No Peripheral Pulses WNL: Yes Integumentary: Yes: Laceration (forearm ( fall that led to admission)) Neurological: Yes: Alert, Oriented, Weakness Psychiatric: Yes: Alert, Oriented Labs: CBC, BMP 08/08/16 05:35 08/08/16 05:35 INR, PTT INR 2.06 (0.82-1.09) H D 08/08/16 05:35 Abnormal Lab Results 08/08/16 08/08/16 08/08/16 05:35 05:35 05:35 RDW 17.0 H INR 2.06 H D Calcium 8.4 L Problem List - Problems (1) CVA (cerebral vascular accident) Assessment/Plan: carotid artery us; significant bilateral stenoses (unchanged from 03/2016). Code(s): I63.9 - CEREBRAL INFARCTION, UNSPECIFIED Qualifiers: CVA mechanism: embolism Laterality of affected vessel: bilateral (2) Skin tear of forearm without complication Code(s): S51.819A - LACERATION WITHOUT FOREIGN BODY OF UNSP FOREARM, INIT ENCNTR Qualifiers: Encounter type: subsequent encounter Laterality: right Qualified Code(s): S51.811D - Laceration without foreign body of right forearm, subsequent encounter (3) Syncope Assessment/Plan: f/u with neurology (significant carotid artery dsease). Aggressive management of lipids. Orthostatic vital signs. Code(s): R55 - SYNCOPE AND COLLAPSE Qualifiers: Syncope type: unspecified Qualified Code(s): R55 - Syncope and collapse (4) Carotid stenosis Code(s): I65.29 - OCCLUSION AND STENOSIS OF UNSPECIFIED CAROTID ARTERY (5) Central retinal artery occlusion Code(s): H34.10 - CENTRAL RETINAL ARTERY OCCLUSION, UNSPECIFIED EYE Qualifiers : Laterality: bilateral Qualified Code(s): H34.13 - Central retinal artery occlusion, bilateral (6) Glaucoma (increased eye pressure) Code(s): H40.9 - UNSPECIFIED GLAUCOMA Qualifiers: Glaucoma type: unspecified type Laterality: bilateral Qualified Code(s): H40.9 - Unspecified glaucoma (7) History of smoking 30 or more pack years Code(s): Z87.891 - PERSONAL HISTORY OF NICOTINE DEPENDENCE (8) Hypertensive arteriosclerotic cardiovascular disease Code(s): I11.9 - HYPERTENSIVE HEART DISEASE WITHOUT HEART FAILURE (9) Hypothyroid Code(s): E03.9 - HYPOTHYROIDISM, UNSPECIFIED Qualifiers: Hypothyroidism type: acquired Qualified Code(s): E03.9 - Hypothyroidism, unspecified (10) Lipidemia Code(s): E78.5 - HYPERLIPIDEMIA, UNSPECIFIED Qualifiers: Hyperlipidemia type: unspecified Qualified Code(s): E78.5 - Hyperlipidemia, unspecified (11) Paroxysmal atrial fibrillation Assessment/Plan: on metoprolol for HR. On warfarin (restart to keep INR 2-3). Code(s): I48.0 - PAROXYSMAL ATRIAL FIBRILLATION
[2016-08-08] MEDS: PARoxetine HCL 10 MG TABLET (FP) PO SCH (11:25)
[2016-08-08] MEDS: METOPROLOL SUCCINATE 25 MG TAB.SR.24H (FP) PO SCH (11:25)
[2016-08-08] MEDS: amLODIPine BESYLATE 10 MG TABLET (FP) PO SCH (11:25)
[2016-08-08] MEDS: TIMOLOL 0.5% OPHTHALMIC SOL 5 ML BOTTLE OU SCH (11:26)
[2016-08-08] MEDS: ASPIRIN 325 MG ENTERIC COATED TABLET (FP) PO SCH (11:26)
--- NOTE | 2016-08-08 14:10 | PN ---
Progress Note (short form) - Note Progress Note: Current Medications Amlodipine Besylate (Norvasc -) 10 mg PO DAILY [facility] Last Admin: 08/08/16 11:25 Dose: 10 mg Aspirin (Ecotrin -) 325 mg PO DAILY [facility] Last Admin: 08/08/16 11:26 Dose: 325 mg Atorvastatin Calcium (Lipitor -) 10 mg PO HS [facility] Last Admin: 08/07/16 21:12 Dose: 10 mg Levothyroxine Sodium (Synthroid -) 100 mcg PO DAILY@0700 [facility] Last Admin: 08/08/16 06:21 Dose: 100 mcg Metoprolol Succinate (Toprol Xl -) 25 mg PO DAILY [facility] Last Admin: 08/08/16 11:25 Dose: 25 mg Paroxetine HCl (Paxil -) 10 mg PO DAILY [facility] Last Admin: 08/08/16 11:25 Dose: 10 mg Timolol Maleate (Timoptic 0.5%) 1 drop OU DAILY [facility] Last Admin: 08/08/16 11:26 Dose: 1 drop Warfarin Sodium (Coumadin -) 3 mg PO ONCE@1800 ONE Stop: 08/08/16 18:01 Laboratory Results - last 24 hr 08/07/16 08/07/16 08/08/16 19:15 20:30 05:35 WBC 8.1 RBC 3.93 Hgb 11.1 Hct 33.1 MCV 84.3 MCHC 33.5 RDW 17.0 H Plt Count 181 MPV 8.5 INR Sodium Potassium Chloride Carbon Dioxide Anion Gap BUN Creatinine POC Glucometer 229 Random Glucose Calcium Ferritin Creatine Kinase 132 Troponin I < 0.02 08/08/16 08/08/16 05:35 05:35 WBC RBC Hgb Hct MCV MCHC RDW Plt Count MPV INR 2.06 H D Sodium 138 Potassium 3.8 Chloride 104 Carbon Dioxide 25 Anion Gap 9 BUN 13 Creatinine 0.8 POC Glucometer Random Glucose 100 Calcium 8.4 L Ferritin 33.543 Creatine Kinase Troponin I Vital Signs Temperature 98.1 F 08/08/16 14:00 Pulse Rate 64 08/08/16 14:00 Respiratory Rate 20 08/08/16 14:00 Blood Pressure 119/43 08/08/16 14:00 O2 Sat by Pulse Oximetry (%) 97 08/08/16 10:00 slept a bit better; but is still drowsy ``````````````````````````````` skin--no acute lesions eyes--midline; visually impaired heart--RR w/ m lungs--grossly clear ext--trace edema neuro--awake; calm seems coherent; thoughts organized; no focal deficits appreciated ````````````````````````````````` Summ > acute MS changes--not sure if it was neuro-psych effect from meds; or if it was hemodynamically related (arrhythmia) in some way; doubt acute stroke; HR has been stable on tele; TNI neg x 3; no report of disorientation by staff > Htn--with ASHD (significant vasc dz; as sh0wn by Carotid doppler); up dose of Norvasc; BNP in 800's; cont A/c; BB; Statin > ATF--as noted but HR is okay at this point > Bacturia--C&S negative for UTI > 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 which is producing dysphoria; will start Paxil 10mg > insomnia--chronic; will stop ambien as she seems a bit drowsy in mid day > alf use A/c & ASA--for stroke prevention; will increase a-c to 3mg > anemia--Hgb seems stable; ferritin is okay ~~~~~~~~~~~~~~~~~~ Dr Lr Problem List - Problems (1) Altered mental status Code(s): R41.82 - ALTERED MENTAL STATUS, UNSPECIFIED Qualifiers: Altered mental status type: delirium Qualified Code(s): R41.0 - Disorientation, unspecified (2) Atrial fibrillation Code(s): I48.91 - UNSPECIFIED ATRIAL FIBRILLATION Qualifiers: Atrial fibrillation type: paroxysmal Qualified Code(s): I48.0 - Paroxysmal atrial fibrillation (3) GUS (cerebral atherosclerosis) Code(s): I67.2 - CEREBRAL ATHEROSCLEROSIS (4) Anemia Code(s): D64.9 - ANEMIA, UNSPECIFIED Qualifiers: Anemia type: other cause Other causes of anemia: other cause, not classified Qualified Code(s): D64.89 - Other specified anemias (5) Atherosclerosis of arteries Code(s): I70.8 - ATHEROSCLEROSIS OF OTHER ARTERIES (6) Hypothyroid Code(s): E03.9 - HYPOTHYROIDISM, UNSPECIFIED Qualifiers: Hypothyroidism type: acquired Qualified Code(s): E03.9 - Hypothyroidism, unspecified (7) Skin tear of forearm without complication Code(s): S51.819A - LACERATION WITHOUT FOREIGN BODY OF UNSP FOREARM, INIT ENCNTR Qualifiers: Encounter type: subsequent encounter Laterality: right Qualified Code(s): S51.811D - Laceration without foreign body of right forearm, subsequent encounter (8) Disturbances of vision, late effect of stroke Code(s): I69.398 - OTHER SEQUELAE OF CEREBRAL INFARCTION H53.9 - UNSPECIFIED VISUAL DISTURBANCE (9) Hypertensive arteriosclerotic cardiovascular disease Code(s): I11.9 - HYPERTENSIVE HEART DISEASE WITHOUT HEART FAILURE (10) Glaucoma (increased eye pressure) Code(s): H40.9 - UNSPECIFIED GLAUCOMA Qualifiers: Glaucoma type: unspecified type Laterality: bilateral Qualified Code(s): H40.9 - Unspecified glaucoma (11) Lipidemia Code(s): E78.5 - HYPERLIPIDEMIA, UNSPECIFIED Qualifiers: Hyperlipidemia type: unspecified Qualified Code(s): E78.5 - Hyperlipidemia, unspecified (12) UTI (urinary tract infection) Code(s): N39.0 - URINARY TRACT INFECTION, SITE NOT SPECIFIED Qualifiers: Urinary tract infection type: site unspecified Hematuria presence: without hematuria Qualified Code(s): N39.0 - Urinary tract infection, site not specified (13) Prolonged INR Code(s): R79.1 - ABNORMAL COAGULATION PROFILE
[2016-08-08] MEDS ORDERED: WARFARIN NA 3 MG TABLET PO ONE (18:00)
--- NOTE | 2016-08-08 19:06 | CONSULT ---
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 PMH sig for HTN, Hypothroidism, Chol, ASHD with A Fib, and depression. Maintained on amlodipine, metoprolol, atorvastatin, L-Thyroxin, coumadin, ASA, paroxetine and quetiapine. 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 Admitted 08/06 after being found, by DIVE MASTER, sitting at the kitchen table, with a wound to the right forearm. Patient has no recollection of events but Aide describes her abode to have been newly in disarray. INR elevated on admission. UA suggests UTI CT of head: Moderate, diffuse atrophy with microvacular changes but no discrete large vessel CVA. No hemorrhages seen. Carotid duplex doppler: Moderately severe, diffuse, atheromatous disease with 60 -79% ICA stenoses, bilaterally (unchanged from 12/28/15). SHERRY: Right forearm bandaged. No carotid bruits. No head trauma. NEURO: Mild OMS. Ox 3. recalls 04/06 at 3. No frontal release. Fluent speech. CN II-XII: Blind R with dilated pupil. Motion only on left. Full EOM' s. No facial. Gag OK Motor: No drift, tremor or cogwheeling. Normal reflexes except absent AJ's. Coord: No dystaxia Sensory: Normal Gait: Wide-based and shuffling but entirely normalizes when lead by examiner's arm. IMP: Mild OMS Blindness. Probable fall. Cannot r/o syncope. SUGGEST: repeat UA and C&S and Rx if indicated. Check B12, B1, TSH, T4, ESR, CRP (r/o temporal arteritis as a cause of blindness). donor services coordinator for home safety check and expansion of services if possible. Check orthostatic BP and cardiology w/u as directed. Try Donepezil 5 mg PO q AM. Neurology f/u as out patient Thank you very much, Gen Turner MD
[2016-08-08] MEDS: ATORVASTATIN CA 10 MG TABLET (FP) PO SCH (21:10)
[2016-08-08] MEDS ORDERED: QUEtiapine FUMARATE 25 MG TABLET (FP) PO PRN (22:00)
[2016-08-09] MEDS: LEVOTHYROXINE NA 100 MCG TABLET (FP) PO SCH (06:06)
[2016-08-09 07:37] LABS: INR 1.96 (0.82-1.09); PROTHROMBIN TIME (PATIENT) 21.9 SEC (9.98-11.88)
[2016-08-09 07:42] LABS: MCH 28.1 pg (25.7-33.7); MCHC 33.6 g/dl (32.0-36.0); MEAN CELL VOLUME 83.8 fl (80-96); MEAN PLT VOLUME 8.5 fl (7.5-11.1); PLATELET COUNT 194 K/MM3 (134-434); RDW 17.2 % (11.6-15.6); WHITE BLOOD COUNT 8.8 K/mm3 (4.0-10.0)
[2016-08-09 08:50] LABS: THYROXINE (T4) 11.5 ug/dl (4.8-13.9)
[2016-08-09] MEDS ORDERED: PT OWN MED DRAWER 7, Y5N ONE (08:59)
[2016-08-09] MEDS: TIMOLOL 0.5% OPHTHALMIC SOL 5 ML BOTTLE OU SCH (09:48)
[2016-08-09] MEDS: PARoxetine HCL 10 MG TABLET (FP) PO SCH (09:48)
[2016-08-09] MEDS: ASPIRIN 325 MG ENTERIC COATED TABLET (FP) PO SCH (09:48)
[2016-08-09] MEDS: METOPROLOL SUCCINATE 25 MG TAB.SR.24H (FP) PO SCH (09:48)
[2016-08-09] MEDS: amLODIPine BESYLATE 10 MG TABLET (FP) PO SCH (09:48)
--- NOTE | 2016-08-09 11:01 | PN ---
Progress Note, Physician History of Present Illness: seen and examined today in [facility]. no overnight events. sitting on side of bed. wants to go home. no new complaints. - Current Medication List Current Medications: Active Medications Amlodipine Besylate (Norvasc -) [address] [facility] Last Admin: 08/09/16 09:48 Dose: 10 mg Aspirin (Ecotrin -) [address] [facility] Last Admin: 08/09/16 09:48 Dose: 325 mg Atorvastatin Calcium (Lipitor -) [address] [facility] Last Admin: 08/08/16 21:10 Dose: 10 mg Levothyroxine Sodium (Synthroid -) 100 mcg PO DAILY@0700 [facility] Last Admin: 08/09/16 06:06 Dose: 100 mcg Metoprolol Succinate (Toprol Xl -) [address] [facility] Last Admin: 08/09/16 09:48 Dose: 25 mg Paroxetine HCl (Paxil -) [address] [facility] Last Admin: 08/09/16 09:48 Dose: 10 mg Quetiapine Fumarate (Seroquel -) 25 mg PO HS PRN PRN Reason: AGITATION Timolol Maleate (Timoptic 0.5%) [address] [facility] Last Admin: 08/09/16 09:48 Dose: 1 drop - Objective Vital Signs: Vital Signs Temperature 98.4 F 08/09/16 06:00 Pulse Rate 65 08/09/16 06:00 Respiratory Rate 18 08/09/16 06:00 Blood Pressure 147/55 08/09/16 06:00 O2 Sat by Pulse Oximetry (%) 97 08/08/16 21:00 Constitutional: Yes: Well Nourished, No Distress, Calm Eyes: Yes: Conjunctiva Clear, EOM Intact, PERRL HENT: Yes: Atraumatic, Normocephalic Neck: Yes: Supple, Trachea Midline Cardiovascular: Yes: Regular Rate and Rhythm, Murmur, S1, S2. No: Bradycardia, Tachycardia, Pulse Irregular, Bruit, JVD, Gallop, Rub, S3, S4, Varicosities Respiratory: Yes: Regular, CTA Bilaterally. No: Rales, Rhonchi, Wheezes Gastrointestinal: Yes: Normal Bowel Sounds, Soft. No: Distention, Tenderness Extremities: Yes: WNL Edema: LLE: Trace, RLE: Trace Peripheral Pulses WNL: Yes Peripheral Pulses: Left Doralis Pedis: 2+, Right Dorsalis Pedis: 2+ Integumentary: Yes: Skin Tear Neurological: Yes: Alert, Oriented Psychiatric: Yes: Alert, Oriented Labs: CBC, BMP 08/09/16 05:35 08/08/16 05:35 INR, PTT INR 1.96 (0.82-1.09) H 08/09/16 05:35 - ....Imaging Chest X-ray: Report Reviewed, Image Reviewed EKG: Report Reviewed, Image Reviewed Other: Report Reviewed, Image Reviewed (tele-nsr, pvcs) Assessment/Plan 76 year old woman with a history of HTN, HLD, carotid stenosis, Pafib, h/o CVA, valvular heart disease with sev MR and mod to sev AR, presumed CAD, psych disorder admitted with AMS possible syncope. AMS-unclear etiology -no sig bradyarrhythmia or pauses on telemetry, has been NSR since admission -carotid stenosis unchanged on doppler compared to 12/2015, vascular evaluated in the past and deemed not a surgical candidate -no acute cva seen on head ct -orthostatic BP done on 08/08 did not show a significant drop in BP -pt is acceptable for discharge home from a cardiac standpoint with plan for close outpatient follow up and consideration for longer term event monitor -cont ASA and statin for carotid disease and recc vascular follow up, likely can be done as outpatient HTN-adequately controlled -cont current medical regimen Pafib-with h/o CVA, NSR throughout admission -INR supratherapeutic on admission -adjust coumadin to maintain goal inr 2-3 -cont toprol xl 25mg daily -fall precautions Valvular heart disease-h/o severe MR and mod to sev AR -stable, euvolemic -outpatient follow up
--- NOTE | 2016-08-09 16:21 | PN ---
Progress Note (short form) - Note Progress Note: Current Medications Amlodipine Besylate (Norvasc -) 10 mg PO DAILY [facility] Last Admin: 08/09/16 09:48 Dose: 10 mg Aspirin (Ecotrin -) 325 mg PO DAILY [facility] Last Admin: 08/09/16 09:48 Dose: 325 mg Atorvastatin Calcium (Lipitor -) 10 mg PO HS [facility] Last Admin: 08/08/16 21:10 Dose: 10 mg Levothyroxine Sodium (Synthroid -) 100 mcg PO DAILY@0700 [facility] Last Admin: 08/09/16 06:06 Dose: 100 mcg Metoprolol Succinate (Toprol Xl -) 25 mg PO DAILY [facility] Last Admin: 08/09/16 09:48 Dose: 25 mg Paroxetine HCl (Paxil -) 10 mg PO DAILY [facility] Last Admin: 08/09/16 09:48 Dose: 10 mg Timolol Maleate (Timoptic 0.5%) 1 drop OU DAILY [facility] Last Admin: 08/09/16 09:48 Dose: 1 drop Warfarin Sodium (Coumadin -) 4 mg PO DAILY@1800 [facility] Laboratory Results - last 24 hr 08/09/16 08/09/16 08/09/16 05:35 05:35 05:35 WBC 8.8 RBC 3.93 Hgb 11.1 Hct 32.9 MCV 83.8 MCHC 33.6 RDW 17.2 H Plt Count 194 MPV 8.5 ESR INR 1.96 H C-Reactive Protein Vitamin B12 362 TSH 1.00 D 08/09/16 08/09/16 05:35 05:35 WBC RBC Hgb Hct MCV MCHC RDW Plt Count MPV ESR 11 INR C-Reactive Protein < 0.3 Vitamin B12 TSH Vital Signs Temperature 98.3 F 08/09/16 14:17 Pulse Rate 67 08/09/16 14:17 Respiratory Rate 20 08/09/16 14:17 Blood Pressure 154/67 08/09/16 14:17 O2 Sat by Pulse Oximetry (%) 97 08/09/16 10:00 slept a bit better;but still gets restless at night ``````````````````````````````` skin--no acute lesions eyes--midline; visually impaired heart--RR w/ m lungs--grossly clear ext--trace edema neuro--awake; calm seems coherent; thoughts organized; no focal deficits appreciated ````````````````````````````````` Summ > acute MS changes--not sure if it was neuro-psych effect from meds; or if it was hemodynamically related (arrhythmia) in some way; doubt acute stroke; HR has been stable on tele; TNI neg x 3; no report of disorientation by staff, but gets restless at night wanting to wander. Spoke with Sugar (relative) who is greatly concerned of her situation when left alone (as she has caregiver assistence for about 5-6 hrs/day) after the aide leaves; fearing she will be in danger because she is unable to see well and cannot teacher private distances, and move around safely. May therefore need to be placed; until another plan or arrangement is made. 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 as noted by Neuro (did not have H/a and ESR was in range; and lost vision in both eyes at same time) which was felt to be due to plaque showering the retinal circulation ~~~~~~~~~~~~~~~~~~ Dr Lr Problem List - Problems (1) Altered mental status Code(s): R41.82 - ALTERED MENTAL STATUS, UNSPECIFIED Qualifiers: Altered mental status type: delirium Qualified Code(s): R41.0 - Disorientation, unspecified (2) Atrial fibrillation Code(s): I48.91 - UNSPECIFIED ATRIAL FIBRILLATION Qualifiers: Atrial fibrillation type: paroxysmal Qualified Code(s): I48.0 - Paroxysmal atrial fibrillation (3) GUS (cerebral atherosclerosis) Code(s): I67.2 - CEREBRAL ATHEROSCLEROSIS (4) Anemia Code(s): D64.9 - ANEMIA, UNSPECIFIED Qualifiers: Anemia type: other cause Other causes of anemia: other cause, not classified Qualified Code(s): D64.89 - Other specified anemias (5) Atherosclerosis of arteries Code(s): I70.8 - ATHEROSCLEROSIS OF OTHER ARTERIES (6) Hypothyroid Code(s): E03.9 - HYPOTHYROIDISM, UNSPECIFIED Qualifiers: Hypothyroidism type: acquired Qualified Code(s): E03.9 - Hypothyroidism, unspecified (7) Skin tear of forearm without complication Code(s): S51.819A - LACERATION WITHOUT FOREIGN BODY OF UNSP FOREARM, INIT ENCNTR Qualifiers: Encounter type: subsequent encounter Laterality: right Qualified Code(s): S51.811D - Laceration without foreign body of right forearm, subsequent encounter (8) Disturbances of vision, late effect of stroke Code(s): I69.398 - OTHER SEQUELAE OF CEREBRAL INFARCTION H53.9 - UNSPECIFIED VISUAL DISTURBANCE (9) Hypertensive arteriosclerotic cardiovascular disease Code(s): I11.9 - HYPERTENSIVE HEART DISEASE WITHOUT HEART FAILURE (10) Glaucoma (increased eye pressure) Code(s): H40.9 - UNSPECIFIED GLAUCOMA Qualifiers: Glaucoma type: unspecified type Laterality: bilateral Qualified Code(s): H40.9 - Unspecified glaucoma (11) Lipidemia Code(s): E78.5 - HYPERLIPIDEMIA, UNSPECIFIED Qualifiers: Hyperlipidemia type: unspecified Qualified Code(s): E78.5 - Hyperlipidemia, unspecified (12) UTI (urinary tract infection) Code(s): N39.0 - URINARY TRACT INFECTION, SITE NOT SPECIFIED Qualifiers: Urinary tract infection type: site unspecified Hematuria presence: without hematuria Qualified Code(s): N39.0 - Urinary tract infection, site not specified (13) Prolonged INR Code(s): R79.1 - ABNORMAL COAGULATION PROFILE
[2016-08-09] MEDS ORDERED: WARFARIN NA 2 MG TABLET (UD) PO SCH (18:00)
[2016-08-09] MEDS: ATORVASTATIN CA 10 MG TABLET (FP) PO SCH (21:38)
[2016-08-09] MEDS ORDERED: QUEtiapine FUMARATE 25 MG TABLET (FP) PO SCH (22:00)
[2016-08-10] MEDS ORDERED: LEVOTHYROXINE NA 100 MCG TABLET (FP) PO SCH (07:00)
[2016-08-10 09:05] LABS: MCH 27.9 pg (25.7-33.7); MCHC 33.3 g/dl (32.0-36.0); MEAN CELL VOLUME 83.8 fl (80-96); MEAN PLT VOLUME 8.1 fl (7.5-11.1); PLATELET COUNT 177 K/MM3 (134-434); RDW 17.3 % (11.6-15.6); WHITE BLOOD COUNT 7.7 K/mm3 (4.0-10.0)
[2016-08-10] MEDS ORDERED: PT OWN MED DRAWER 7, Y5N ONE (09:12)
[2016-08-10 09:33] LABS: INR 2.49 (0.82-1.09); PROTHROMBIN TIME (PATIENT) 27.9 SEC (9.98-11.88)
--- NOTE | 2016-08-10 09:39 | PN ---
Progress Note, Physician Chief Complaint: sitting in hallway denies chest pain or SOB - Current Medication List Current Medications: Active Medications Amlodipine Besylate (Norvasc -) 10 mg PO DAILY [facility] Last Admin: 08/10/16 09:13 Dose: 10 mg Aspirin (Ecotrin -) 325 mg PO DAILY [facility] Last Admin: 08/10/16 09:13 Dose: 325 mg Atorvastatin Calcium (Lipitor -) 10 mg PO [facility] Levothyroxine Sodium (Synthroid -) 100 mcg PO DAILY@0700 [facility] Last Admin: 08/10/16 06:14 Dose: 100 mcg Metoprolol Succinate (Toprol Xl -) 25 mg PO DAILY [facility] Last Admin: 08/10/16 09:13 Dose: 25 mg Paroxetine HCl (Paxil -) 10 mg PO DAILY [facility] Last Admin: 08/10/16 09:12 Dose: 10 mg Quetiapine Fumarate (Seroquel -) 25 mg PO [facility] Timolol Maleate (Timoptic 0.5%) 1 drop OU DAILY [facility] Last Admin: 08/10/16 09:12 Dose: 1 drop Warfarin Sodium (Coumadin -) 4 mg PO DAILY@1800 [facility] - Objective Vital Signs: Vital Signs Temperature 98.3 F 08/10/16 09:10 Pulse Rate 66 08/10/16 09:10 Respiratory Rate 20 08/10/16 09:10 Blood Pressure 148/58 08/10/16 09:10 O2 Sat by Pulse Oximetry (%) 97 08/09/16 21:00 Constitutional: Yes: No Distress Cardiovascular: Yes: Regular Rate and Rhythm Respiratory: Yes: CTA Bilaterally Gastrointestinal: Yes: Soft Edema: No Neurological: Yes: Alert ...Motor Strength: WNL Labs: CBC, BMP 08/10/16 08:00 08/08/16 05:35 INR, PTT INR 1.96 (0.82-1.09) H 08/09/16 05:35 Laboratory Tests 08/06/16 08/06/16 08/06/16 12:00 12:00 12:00 WBC 6.9 Hgb 10.5 L D Plt Count 169 INR 5.94 H* D Sodium 136 Potassium 4.5 BUN 14 D Creatinine 1.3 H D Creatine Kinase 230 H D CK-MB (CK-2) 2.656 Troponin I < 0.02 C-Reactive Protein 08/07/16 08/09/1608/10/17 20:30 05:35 08:00 WBC 7.7 Hgb 10.9 Plt Count 177 INR Sodium Potassium BUN Creatinine Creatine Kinase CK-MB (CK-2) Troponin I < 0.02 C-Reactive Protein < 0.3 08/10/16 08:00 WBC Hgb Plt Count INR Pending Sodium Potassium BUN Creatinine Creatine Kinase CK-MB (CK-2) Troponin I C-Reactive Protein Problem List - Problems (1) Skin tear of forearm without complication Code(s): S51.819A - LACERATION WITHOUT FOREIGN BODY OF UNSP FOREARM, INIT ENCNTR Qualifiers: Encounter type: subsequent encounter Laterality: right Qualified Code(s): S51.811D - Laceration without foreign body of right forearm, subsequent encounter (2) Altered mental status Code(s): R41.82 - ALTERED MENTAL STATUS, UNSPECIFIED Qualifiers: Altered mental status type: delirium Qualified Code(s): R41.0 - Disorientation, unspecified (3) Atherosclerosis of arteries Code(s): I70.8 - ATHEROSCLEROSIS OF OTHER ARTERIES (4) Atrial fibrillation Code(s): I48.91 - UNSPECIFIED ATRIAL FIBRILLATION Qualifiers: Atrial fibrillation type: paroxysmal Qualified Code(s): I48.0 - Paroxysmal atrial fibrillation (5) CVA (cerebral vascular accident) Code(s): I63.9 - CEREBRAL INFARCTION, UNSPECIFIED Qualifiers: CVA mechanism: embolism Laterality of affected vessel: bilateral Assessment/Plan Assessment/Plan 76 year old woman with a history of HTN, HLD, carotid stenosis, Pafib, h/o CVA, valvular heart disease with sev MR and mod to sev AR, presumed CAD, psych disorder admitted with AMS possible syncope. AMS-unclear etiology -no sig bradyarrhythmia or pauses on telemetry, has been NSR since admission -carotid stenosis unchanged on doppler compared to 12/2015, vascular evaluated in the past and deemed not a surgical candidate due to moderate disease and discovery of PAF as likely source prior CVA -no acute cva seen on head ct -not orthostatic this admission -ok for discharge from CV perspective -cont ASA and statin for carotid disease and recc vascular follow up, likely can be done as outpatient Pafib-with h/o CVA, NSR throughout admission -INR supratherapeutic on admission -adjust coumadin to maintain goal inr 2-3 -cont toprol xl 25mg daily Valvular heart disease-h/o moderate to severe MR and mod to sev AR -stable, euvolemic, no history of CHF. Appears to be asx from this standpoint -Close outpatient f/u Should see me or Dr. Hoskins 1-2 weeks after discharge. Office #: [phone]
[2016-08-10] MEDS ORDERED: amLODIPine BESYLATE 10 MG TABLET (FP) PO SCH (10:00)
[2016-08-10] MEDS ORDERED: TIMOLOL 0.5% OPHTHALMIC SOL 5 ML BOTTLE OU SCH (10:00)
[2016-08-10] MEDS ORDERED: ASPIRIN 325 MG ENTERIC COATED TABLET (FP) PO SCH (10:00)
[2016-08-10] MEDS ORDERED: METOPROLOL SUCCINATE 25 MG TAB.SR.24H (FP) PO SCH (10:00)
[2016-08-10] MEDS ORDERED: PARoxetine HCL 10 MG TABLET (FP) PO SCH (10:00)
[2016-08-10 14:05] VITALS: BP 154/58; PULSE 67; TEMP 98.7
--- NOTE | 2016-08-10 16:31 | DS ---
Physical Examination Vital Signs: Vital Signs Temperature 98.7 F 08/10/16 14:03 Pulse Rate 67 08/10/16 14:03 Respiratory Rate 20 08/10/16 09:10 Blood Pressure 154/58 08/10/16 14:03 O2 Sat by Pulse Oximetry (%) 97 08/09/16 21:00 Constitutional: Yes: No Distress Eyes: Yes: Conjunctiva Clear, Other (visually impaired) HENT: Yes: Other (edentulous) Cardiovascular: Yes: Pulse Irregular Respiratory: Yes: Regular Gastrointestinal: Yes: Soft Extremities: Yes: WNL Edema: Yes Edema: LUE: Trace, RUE: Trace, LLE: Trace, RLE: Trace Integumentary: Yes: WNL Neurological: Yes: Alert, Oriented ...Motor Strength: WNL Psychiatric: Yes: Oriented, Other (anxious) Labs: CBC, BMP 08/10/16 08:00 08/08/16 05:35 INR, PTT INR 2.49 (0.82-1.09) H 08/10/16 08:00 Discharge Summary Reason For Visit: SKIN TEAR OF FOREARM,SYNCOPE Current Active Problems GUS (cerebral atherosclerosis)--extensive CVA (cerebral vascular accident)--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 She denied any injury or fainting that she could recall. counter attendant had noted cognitive and behavioral changes prior to this which began slowly not too long after she was initially released from the assisted earlier this year. Home care services were put in place as she required near total assistance in her daily living activities but at night she had no coverage or assistance. She started to become more agitated & confused at night, culminating into this admission. Her course was unremarkable, she was seen by Cardiology who did not find any new cardio-circ issues. She had no arrhythmias, no c/o dizziness, CP; SOB, etc, but at night she was noted to getting confused and restless and speaking/ walking around inappropriately. Disposition was discussed with niece; who did not advise discharging her back home; as it would be an unsafe environment without the presence on an attendant 24 x 7. Family unable to provide assistance as per niece. Condition: Improved - Instructions Diet, Activity, Other Instructions: low salt diet; check blood work and weekly INR schedule appointment with eye MD; Dr Ervin Mcwilliams within 2-3 weeks check CBC & TFTs, chemistries periodically Psych evaluation Referrals: Eduardo Lr MD [Primary Care Provider] - Disposition: [facility] - Home Medications Comprehensive Discharge Medication List: Ambulatory Orders Amlodipine Besylate [Norvasc -] 10 mg PO DAILY 04/17/16 Aspirin [Aspirin EC] 325 mg PO DAILY 04/17/16 Atorvastatin Ca [Lipitor] 20 mg PO HS 04/17/16 Metoprolol Succinate [Toprol XL -] 25 mg PO BID 04/17/16 Timolol 0.5% [Timoptic 0.5%] 1 drop OU DAILY 04/17/16 Warfarin Sodium [Coumadin] 4 mg PO HS 04/17/16 Acetaminophen [Tylenol .Regular Strength -] 650 mg PO Q6H PRN #0 tablet Levothyroxine Sodium [Levo-T] 100 mcg PO DAILY #30 tablet 04/21/16 Acetazolamide [Diamox -] 250 mg PO BID 08/06/16 Brimonidine Tartrate [Alphagan P 0.1% -] 1 drop OU QID 08/06/16 Prednisolone 1% Ophthalmic [Pred Forte 1% -] 1 ml OP QID 08/06/16 Paroxetine HCl [Paxil -] 10 mg PO DAILY tablet 08/10/16 Quetiapine Fumarate [Seroquel -] 25 mg PO HS #0 tablet 08/10/16
[2016-08-10] MEDS ORDERED: WARFARIN NA 2 MG TABLET (UD) PO SCH (18:00)
[2016-08-10] MEDS ORDERED: ATORVASTATIN CA 10 MG TABLET (FP) PO SCH (22:00)
[2016-08-10] MEDS ORDERED: QUEtiapine FUMARATE 25 MG TABLET (FP) PO SCH (22:00)
== END 2016-08-10 19:20 ==
LOC: JER 10:58 → JERBED 13:45 → J4W 17:10 → J6S 08-09 21:25
PROVIDERS: ADMIT Internal Medicine; ATTEND Internal Medicine
PROC: 3E0234Z Introduction of Serum, Toxoid and Vaccine into Muscle, Percutaneous Approach (ICD-10-PCS; principal; 2016-08-06)
DX: R55 Syncope and collapse (principal); R41.82 Altered mental status, unspecified; S51.811A Laceration without foreign body of right forearm, initial encounter; I70.8 Atherosclerosis of other arteries; I67.2 Cerebral atherosclerosis; I11.9 Hypertensive heart disease without heart failure; I63.9 Cerebral infarction, unspecified; I65.29 Occlusion and stenosis of unspecified carotid artery; I69.398 Other sequelae of cerebral infarction; I48.0 Paroxysmal atrial fibrillation; Z79.01 Long term (current) use of anticoagulants; H54.7 Unspecified visual loss; Z87.891 Personal history of nicotine dependence; I25.10 Atherosclerotic heart disease of native coronary artery without angina pectoris; E78.5 Hyperlipidemia, unspecified; J44.9 Chronic obstructive pulmonary disease, unspecified; F41.9 Anxiety disorder, unspecified; M19.90 Unspecified osteoarthritis, unspecified site; E89.0 Postprocedural hypothyroidism; Z79.82 Long term (current) use of aspirin; D64.9 Anemia, unspecified; H40.9 Unspecified glaucoma; N39.0 Urinary tract infection, site not specified; R79.1 Abnormal coagulation profile; X58.XXXA Exposure to other specified factors, initial encounter; Y93.9 Activity, unspecified; Y92.9 Unspecified place or not applicable
CPT/HCPCS: 36415; 70450-TC; 71010-TC; 80048; 80053; 80061; 81003; 81015; 82550; 82553; 82607; 82728; 83036; 83721; 83735; 83880; 84425; 84436; 84443; 84484; 85025; 85027; 85610; 85651; 86140; 87086; 90715; 93005; 93010; 93880-TC; 97116-GP; 97162-GP; 99283-25; G0378

== ENCOUNTER 2017-04-08 09:48 | Observation (INO) | payer OTHER ==
--- NOTE | 2017-04-08 10:03 | PDOC ---
History of Present Illness - History of Present Illness Initial Comments: 04/08/17 10:04 Ms. 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 She also reports recent dysuria as well as cough. The patient denies chest pain, shortness of breath, and headache. Denies fever, chills, nausea, vomit, diarrhea and constipation. Allergies:NKDA <Madhu Stock - Last Filed: 04/08/17 15:39> <Nathaniel Kenny - Last Filed: 04/08/17 16:46> - General Stated Complaint: FALL Time Seen by Provider: 04/08/17 10:03 Past History - Past Medical History Anemia: No Asthma: No Cancer: No Cardiac Disorders: Yes (A-FIB) CVA: Yes COPD: No CHF: No Dementia: No Diabetes: No GI Disorders: No Disorders: No HTN: Yes Hypercholesterolemia: No Liver Disease: No Seizures: No Thyroid Disease: Yes - Surgical History Abdominal Surgery: Yes (HIATAL HERNIA) Appendectomy: No Cardiac Surgery: No Cholecystectomy: Yes Lung Surgery: No Neurologic Surgery: No Orthopedic Surgery: No - Immunization History Immunization Up to Date: Yes - Suicide/Smoking/Psychosocial Hx Smoking Status: No Smoking History: Former smoker Have you smoked in the past 12 months: No Number of Cigarettes Smoked Daily: 20 If you are a former smoker, when did you quit?: 2013 Cigars Per Day: 10 'Breaking Loose' booklet given: 03/11/13 Hx Alcohol Use: No Drug/Substance Use Hx: No Substance Use Type: None Hx Substance Use Treatment: No <Madhu Stock - Last Filed: 04/08/17 15:39> <Nathaniel Kenny - Last Filed: 04/08/17 16:46> - Past Medical History Allergies/Adverse Reactions: Allergies Allergy/AdvReac Type Severity Reaction Status Date / Time No Known Drug Allergies Allergy Verified 04/08/17 10:13 Review of Systems - Review of Systems Comments:: 04/08/17 10:38 GENERAL/CONSTITUTIONAL: No fever or chills. No weakness. HEAD, EYES, EARS, NOSE AND THROAT: No change in vision. No ear pain or discharge. No sore throat. CARDIOVASCULAR: No chest pain or shortness of breath RESPIRATORY: No cough, wheezing, or hemoptysis. GASTROINTESTINAL: No nausea, vomiting, diarrhea or constipation. GENITOURINARY: +Dysuria of unknown length of time. No frequency, or change in urination. MUSCULOSKELETAL: No joint or muscle swelling or pain. No neck or back pain. SKIN: No rash NEUROLOGIC: +Transient dizziness earlier today. No headache, vertigo, loss of consciousness, or change in strength/sensation. ENDOCRINE: No increased thirst. No abnormal weight change HEMATOLOGIC/LYMPHATIC: No anemia, easy bleeding, or history of blood clots. ALLERGIC/IMMUNOLOGIC: No hives or skin allergy. <Madhu Stock - Last Filed: 04/08/17 15:39> *Physical Exam - Physical Exam Comments: 04/08/17 10:39 GENERAL: Awake, alert, and fully oriented, in no acute distress HEAD: No signs of trauma, normocephalic, atraumatic EYES: PERRLA, EOMI, sclera anicteric, conjunctiva clear ENT: Auricles normal inspection, hearing grossly normal, nares patent, oropharynx clear without exudates. Moist mucosa NECK: Normal ROM, supple, no lymphadenopathy, JVD, or masses LUNGS: No distress, speaks full sentences, clear to auscultation bilaterally HEART: Regular rate and rhythm, normal S1 and S2, no murmurs, rubs or gallops, peripheral pulses normal and equal bilaterally. ABDOMEN: Soft, nontender, normoactive bowel sounds. No guarding, no rebound. No masses EXTREMITIES: Normal inspection, Normal range of motion, no edema. No clubbing or cyanosis. NEUROLOGICAL: Cranial nerves II through XII grossly intact. Normal speech, normal gait, no focal sensorimotor deficits SKIN: Warm, Dry, normal turgor, no rashes or lesions noted. <Madhu Stock - Last Filed: 04/08/17 15:39> - Vital Signs Last Vital Signs Temp Pulse Resp BP Pulse Ox 98 F 65 20 146/54 98 04/08/17 10:14 04/08/17 10:14 04/08/17 10:14 04/08/17 10:14 04/08/17 10:14 <Nathaniel Kenny - Last Filed: 04/08/17 16:46> ED Treatment Course - LABORATORY CBC & Chemistry Diagram: 04/08/17 10:36 04/08/17 10:36 <Madhu Stock - Last Filed: 04/08/17 15:39> - LABORATORY CBC & Chemistry Diagram: 04/08/17 10:36 04/08/17 10:36 - ADDITIONAL ORDERS Additional order review: Laboratory Results 04/08/17 04/08/17 04/08/17 12:40 10:49 10:36 PT with INR INR PTT (Actin FS) Sodium Potassium Chloride Carbon Dioxide Anion Gap BUN Creatinine Creat Clearance w eGFR Random Glucose Lactic Acid Calcium Total Bilirubin AST ALT Alkaline Phosphatase Creatine Kinase 97 Troponin I < 0.02 Total Protein Albumin Urine Color Yellow Urine Appearance Cloudy Urine pH 6.0 Ur Specific [place] 1.012 Urine Protein 2+ H Urine Glucose (UA) Negative Urine Ketones Negative Urine Blood 2+ H Urine Nitrite Negative Urine Bilirubin Negative Urine Urobilinogen Negative Urine WBC (Auto) 62 Urine RBC (Auto) 18 Ur Epithelial Cells Rare Urine Bacteria Rare Hyaline Casts 3 Urine Mucus Moderate Blood Type A POSITIVE Antibody Screen Negative 04/08/17 04/08/17 04/08/17 10:36 10:36 10:36 PT with INR 30.20 H INR 2.67 H PTT (Actin FS) 38.8 H D Sodium 139 Potassium 3.7 Chloride 102 Carbon Dioxide 31 D Anion Gap 6 L BUN 17 D Creatinine 1.1 H D Creat Clearance w eGFR 48.04 Random Glucose 136 H D Lactic Acid 1.2 Calcium 8.1 L Total Bilirubin 0.6 AST 23 D ALT 19 Alkaline Phosphatase 102 Creatine Kinase Troponin I Total Protein 7.3 Albumin 3.6 Urine Color Urine Appearance Urine pH Ur Specific [place] Urine Protein Urine Glucose (UA) Urine Ketones Urine Blood Urine Nitrite Urine Bilirubin Urine Urobilinogen Urine WBC (Auto) Urine RBC (Auto) Ur Epithelial Cells Urine Bacteria Hyaline Casts Urine Mucus Blood Type Antibody Screen 04/08/17 10:36 RBC 4.16 MCV 83.3 MCHC 31.8 L RDW 17.2 H MPV 8.1 Neutrophils % 75.7 Lymphocytes % 14.7 D Monocytes % 8.0 Eosinophils % 0.7 Basophils % 0.9 - RADIOLOGY Radiology Studies Ordered: Category Date Time Status HEAD CT WITHOUT CONTRAST [CT] Stat CT Scan 04/08/17 11:25 Completed - Medications Given in the ED: ED Medications Discontinued Medications Generic Name Dose Route Start Last Admin Trade Name Estela PRN Reason Stop Dose Admin Trimethoprim/Sulfamethoxazole 1 each 04/08/17 14:30 04/08/17 14:51 Bactrim Ds - PO 04/08/17 14:31 1 each ONCE ONE Administration <Nathaniel Kenny - Last Filed: 04/08/17 16:46> Medical Decision Making - Medical Decision Making 04/08/17 14:35 Ms. 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 Per EMS she had [facility] but was back in 120's systolic on their arrival. Patient resting comfortably upon arrival. Due to patient's age and complicated medical history extensive labs and CT ordered. Patient found to have mild UTI on UA, will admit for observation and further treatment. <Madhu Stock - Last Filed: 04/08/17 15:39> *DC/Admit/Observation/Transfer - Discharge Dispostion Admit: Yes <Madhu Stock - Last Filed: 04/08/17 15:39> <Nathaniel Kenny - Last Filed: 04/08/17 16:46> Diagnosis at time of Disposition: Pre-syncope UTI (urinary tract infection) Qualifiers: Urinary tract infection type: site unspecified Hematuria presence: with hematuria Qualified Code(s): N39.0 - Urinary tract infection, site not specified
[2017-04-08 10:17] VITALS: BMI 28.1
[2017-04-08 10:47] LABS: BASO % 0.9 % (0-2.0); EOS % 0.7 % (0-4.5); HEMATOCRIT 34.6 % (32.4-45.2); LYMPH % 14.7 % (8-40); MCH 26.5 pg (25.7-33.7); MCHC 31.8 g/dl (32.0-36.0); MEAN CELL VOLUME 83.3 fl (80-96); MEAN PLT VOLUME 8.1 fl (7.5-11.1); NEUT % 75.7 % (42.8-82.8); PLATELET COUNT 172 K/MM3 (134-434); RBC 4.16 M/mm3 (3.60-5.2); RDW 17.2 % (11.6-15.6); WHITE BLOOD COUNT 7.3 K/mm3 (4.0-10.0)
--- NOTE | 2017-04-08 10:49 | PDOC ---
Attending Attestation - Resident Resident Name: Madhu Stock - ED Attending Attestation I have performed the following: I have examined & evaluated the patient, The case was reviewed & discussed with the resident, I agree w/resident's findings & plan, Exceptions are as noted - HPI HPI: 04/08/17 10:45 76y F hx of hl, htn, hypothyroidism cva, afib (on coumadin) presents frorm daniel for presyncope. Pt states she felt ok the past few days and this morning , had some breakfast, then started feeling like she was about to pass out. She was able to sit herself down and didnt fall down. She denies any cp, sob, fever/ chills, n/v, abd pain, back pain, neck pain. Pt notes she has vision loss from prior strokes. on exam general: no acute distress neuro: moving all 4 extremities spontaneously and symmetrically, pupils 8mm on L eye , 4mm on R eye, sluggishly reactive to light. cardiac: irregularly irregular, normal rate pulm: cta, no wheezes abd soft nontender will ck labs ct head due to abnormal pupisl, being on a/c tele monitoring 04/08/17 11:25 - Physicial Exam PE: 04/08/17 20:02 bhavesh hinson - Medical Decision Making 04/08/17 20:02 see above pt admitted for uti, syncope will admit to tele for further management Heart Score/ECG Review - ECG Impressions Comment:: 04/08/17 11:34 Twelve-lead EKG was performed and reviewed by me. Irregularly irregular Rate of 64 T wave inversions in lateral leads Impression atrial fibrillation
[2017-04-08 11:00] LABS: INR 2.67 (0.82-1.09); PROTHROMBIN TIME (PATIENT) 30.2 SEC (9.98-11.88)
[2017-04-08 11:03] LABS: ACTIVATED PTT 38.8 SECONDS (26.9-34.4)
[2017-04-08 11:17] LABS: ALBUMIN 3.6 g/dl (3.4-5.0); ANION GAP 6 (8-16); BILIRUBIN,TOTAL 0.6 mg/dL (0.2-1.0); BLOOD UREA NITROGEN 17 mg/dL (7-18); CALCIUM 8.1 mg/dL (8.5-10.1); CHLORIDE 102 mmol/L (98-107); CO2 31 mmol/L (21-32); CREATININE 1.1 mg/dL (0.55-1.02); GLUCOSE,RANDOM 136 mg/dL (74-106); SGPT/ALT 19 U/L (12-78); SODIUM 139 mmol/L (136-145); TOT PROT 7.3 g/dl (6.4-8.2)
[2017-04-08 11:18] LABS: ALK PHOS 102 U/L (45-117)
[2017-04-08 11:33] LABS: POTASSIUM 3.7 mmol/L (3.5-5.1); SGOT/AST 23 U/L (15-37)
[2017-04-08 12:59] LABS: URINE APPEARANCE CLOUDY; URINE BILIRUBIN NEGATIVE (NEGATIVE); URINE BLOOD 2+ (NEGATIVE); URINE COLOR YELLOW; URINE GLUCOSE (UA) NEGATIVE (NEGATIVE); URINE KETONE NEGATIVE (NEGATIVE); URINE LEUK ESTERASE 2+ (NEGATIVE); URINE NITRITE NEGATIVE (NEGATIVE); URINE PROTEIN 2+ (NEGATIVE); URINE UROBILINOGEN NEGATIVE mg/dL (0.2-1.0)
[2017-04-08 13:21] LABS: EPI CELLS RARE /HPF (FEW); URINE BACTERIA RARE /hpf (NONE SEEN); URINE HYALINE CAST 3 /lpf; URINE MUCUS MODERATE
[2017-04-08] MEDS ORDERED: SULFAMETHOXAZOLE/TRIMETHOPRIM 800MG/160MG D.S. TABLET PO ONE (14:30)
[2017-04-08] MEDS ORDERED: SULFAMETHOXAZOLE/TRIMETHOPRIM 800MG/160MG D.S. TABLET ONE (14:45)
--- NOTE | 2017-04-08 15:23 | HP ---
CHIEF COMPLAINT: I fell down. PCP: [facility] resident HISTORY OF PRESENT ILLNESS: 76 year-old female with a PMH significant for HTN, HLD, carotid artery disease, atrial fibrillation, severe valvular pathology, CVA with residual right eye blindness, hypothyroidism, and depression/anxiety. Patient is a [facility] resident who reported feeling dizzy after breakfast. She sat down and said she could not walk. She did not fall or strike her head. Patient denies dysuria at the time of this interview, but admits to frequency. She denies chest pain, palpitations, SOB, ORTIZ, and lower extremity edema. She denies fever, headache, sweats, chills. She denies nausea, vomiting, diarrhea, and constipation. ER course was notable for: (1) ECG afib @ 64bpm (2) Urine: 62 WBCs (3) Bactrim DS x 1 dose Recent Travel: No PAST MEDICAL HISTORY: Hypertension Hyperlipidemia Carotid artery disease Atrial fibrillation Severe valvular pathology Depression/Anxiety CVA with residual right eye blindness Hypothyroidism Glaucoma Chronic bronchitis Frequent falls PAST SURGICAL HISTORY: Cholecystectomy Thyroidectomy Cataract surgery Social History: Smoking: Alcohol: Drugs: Family History: Allergies No Known Drug Allergies Allergy (Verified 04/08/17 10:13) HOME MEDICATIONS: Home Medications Medication Instructions Recorded Amlodipine Besylate [Norvasc -] 10 mg PO DAILY 04/17/16 Aspirin [Aspirin EC] 325 mg PO DAILY 04/17/16 Atorvastatin Ca [Lipitor] 20 mg PO HS 04/17/16 Metoprolol Succinate [Toprol XL -] 25 mg PO BID 04/17/16 Timolol 0.5% [Timoptic 0.5%] 1 drop OU DAILY 04/17/16 Warfarin Sodium [Coumadin] 4 mg PO HS 04/17/16 Acetaminophen [Tylenol .Regular 650 mg PO Q6H PRN #0 tablet 04/21/16 Strength -] Levothyroxine Sodium [Levo-T] 100 mcg PO DAILY #30 tablet 04/21/16 Acetazolamide [Diamox -] 250 mg PO BID 08/06/16 Brimonidine Tartrate [Alphagan P 1 drop OU QID 08/06/16 0.1% -] Prednisolone 1% Ophthalmic [Pred 1 ml OP QID 08/06/16 Forte 1% -] Paroxetine HCl [Paxil -] 10 mg PO DAILY tablet 08/10/16 Quetiapine Fumarate [Seroquel -] 25 mg PO HS #0 tablet 08/10/16 REVIEW OF SYSTEMS CONSTITUTIONAL: +weakness Absent: fever, chills, diaphoresis, malaise, loss of appetite, weight change HEENT: Absent: rhinorrhea, nasal congestion, throat pain, throat swelling, difficulty swallowing, mouth swelling, ear pain, eye pain, visual changes CARDIOVASCULAR: Absent: chest pain, syncope, palpitations, irregular heart rate, lightheadedness , peripheral edema RESPIRATORY: Absent: cough, shortness of breath, dyspnea with exertion, orthopnea, wheezing, stridor, hemoptysis GASTROINTESTINAL: Absent: abdominal pain, abdominal distension, nausea, vomiting, diarrhea, constipation, melena, hematochezia GENITOURINARY: +frequency Absent: dysuria, urgency, hesitancy, hematuria, flank pain, genital pain MUSCULOSKELETAL: Absent: myalgia, arthralgia, joint swelling, back pain, neck pain SKIN: Absent: rash, itching, pallor HEMATOLOGIC/IMMUNOLOGIC: Absent: easy bleeding, easy bruising, lymphadenopathy, frequent infections ENDOCRINE: Absent: unexplained weight gain, unexplained weight loss, heat intolerance, cold intolerance NEUROLOGIC: Absent: headache, focal weakness or paresthesias, dizziness, unsteady gait, seizure, mental status changes, bladder or bowel incontinence PSYCHIATRIC: Absent: anxiety, depression, suicidal or homicidal ideation, hallucinations. PHYSICAL EXAMINATION Vital Signs - 24 hr 04/08/17 10:14 Temperature 98 F Pulse Rate 65 Respiratory 20 Rate Blood Pressure 146/54 O2 Sat by Pulse 98 Oximetry (%) GENERAL: Awake, alert, and fully oriented, in no acute distress. HEAD: Normal with no signs of trauma. EYES: left eye 8mm, right eye 4mm; opacification right eye EARS, NOSE, THROAT: Ears normal, nares patent, oropharynx clear without exudates. Moist mucous membranes. NECK: Normal range of motion, supple without lymphadenopathy, JVD, or masses. LUNGS: Breath sounds equal, clear to auscultation bilaterally. No wheezes, and no crackles. No accessory muscle use. HEART: Regular rate and rhythm, normal S1 and S2 without murmur, rub or gallop. ABDOMEN: Soft, nontender, not distended, normoactive bowel sounds, no guarding, no rebound, no masses. No hepatomegaly or splenomegaly. MUSCULOSKELETAL: Normal range of motion at all joints. No bony deformities or tenderness. No CVA tenderness. UPPER EXTREMITIES: 2+ pulses, warm, well-perfused. No cyanosis. No clubbing. No peripheral edema. LOWER EXTREMITIES: 2+ pulses, warm, well-perfused. No calf tenderness. No peripheral edema. NEUROLOGICAL: Cranial nerves II-XII intact. Normal speech. Normal gait. PSYCHIATRIC: Cooperative. Good eye contact. Appropriate mood and affect. SKIN: Warm, dry, normal turgor, no rashes or lesions noted, normal capillary refill. Laboratory Results - last 24 hr 04/08/17 04/08/17 04/08/17 10:36 10:36 10:36 WBC 7.3 RBC 4.16 Hgb 11.0 Hct 34.6 MCV 83.3 MCH 26.5 MCHC 31.8 L RDW 17.2 H Plt Count 172 MPV 8.1 Neutrophils % 75.7 Lymphocytes % 14.7 D Monocytes % 8.0 Eosinophils % 0.7 Basophils % 0.9 PT with INR 30.20 H INR 2.67 H PTT (Actin FS) 38.8 H D Sodium 139 Potassium 3.7 Chloride 102 Carbon Dioxide 31 D Anion Gap 6 L BUN 17 D Creatinine 1.1 H D Creat Clearance w eGFR 48.04 Random Glucose 136 H D Lactic Acid Calcium 8.1 L Total Bilirubin 0.6 AST 23 D ALT 19 Alkaline Phosphatase 102 Creatine Kinase Troponin I Total Protein 7.3 Albumin 3.6 Urine Color Urine Appearance Urine pH Ur Specific [place] Urine Protein Urine Glucose (UA) Urine Ketones Urine Blood Urine Nitrite Urine Bilirubin Urine Urobilinogen Urine WBC (Auto) Urine RBC (Auto) Ur Epithelial Cells Urine Bacteria Hyaline Casts Urine Mucus Blood Type Antibody Screen 04/08/17 04/08/17 04/08/17 10:36 10:36 10:49 WBC RBC Hgb Hct MCV MCH MCHC RDW Plt Count MPV Neutrophils % Lymphocytes % Monocytes % Eosinophils % Basophils % PT with INR INR PTT (Actin FS) Sodium Potassium Chloride Carbon Dioxide Anion Gap BUN Creatinine Creat Clearance w eGFR Random Glucose Lactic Acid 1.2 Calcium Total Bilirubin AST ALT Alkaline Phosphatase Creatine Kinase 97 Troponin I < 0.02 Total Protein Albumin Urine Color Urine Appearance Urine pH Ur Specific [place] Urine Protein Urine Glucose (UA) Urine Ketones Urine Blood Urine Nitrite Urine Bilirubin Urine Urobilinogen Urine WBC (Auto) Urine RBC (Auto) Ur Epithelial Cells Urine Bacteria Hyaline Casts Urine Mucus Blood Type A POSITIVE Antibody Screen Negative 04/08/17 12:40 WBC RBC Hgb Hct MCV MCH MCHC RDW Plt Count MPV Neutrophils % Lymphocytes % Monocytes % Eosinophils % Basophils % PT with INR INR PTT (Actin FS) Sodium Potassium Chloride Carbon Dioxide Anion Gap BUN Creatinine Creat Clearance w eGFR Random Glucose Lactic Acid Calcium Total Bilirubin AST ALT Alkaline Phosphatase Creatine Kinase Troponin I Total Protein Albumin Urine Color Yellow Urine Appearance Cloudy Urine pH 6.0 Ur Specific [place] 1.012 Urine Protein 2+ H Urine Glucose (UA) Negative Urine Ketones Negative Urine Blood 2+ H Urine Nitrite Negative Urine Bilirubin Negative Urine Urobilinogen Negative Urine WBC (Auto) 62 Urine RBC (Auto) 18 Ur Epithelial Cells Rare Urine Bacteria Rare Hyaline Casts 3 Urine Mucus Moderate Blood Type Antibody Screen ASSESSMENT/PLAN: 76 year-old female with a PMH significant for HTN, HLD, carotid artery disease, atrial fibrillation, severe valvular pathology, CVA with residual right eye blindness, hypothyroidism, and depression/anxiety. Placed on observation for UTI. UTI --start ceftriaxone --culture pending Atrial fibrillation --rate well-controlled --INR 2.67, continue current dosing coumadin --repeat ECG --telemetry monitoring Elevated creatinine --Cr 1.1, baseline 0.8 --repeat in am Severe valvular pathology --12/28/15 Echo: normal LV; normal RV; LAE; severe MR; mild to moderate TR; pHTN; moderate to severe AI --no acute issues Hypertension --BP well-controlled --continue Toprol XL, amlodipine Hyperlipidemia --continue Lipitor Carotid artery disease --continue Toprol XL, Lipitor CVA w/ right eye blindness --falls precautions Hypothyroidism --continue levothyroxine Depression/anxiety --continue Paxil FEN Fluids: PO intake adequate Electrolytes: replete as indicated Nutrition: low sodium DVT prophylaxis: subq heparin Dispo: continues to require observation. Visit type - Emergency Visit Emergency Visit: Yes ED Registration Date: 04/08/17 Care time: The patient presented to the Emergency Department on the above date and was hospitalized for further evaluation of their emergent condition. - New Patient This patient is new to me today: Yes Date on this admission: 04/09/17 - Critical Care Critical Care patient: No
[2017-04-08] MEDS ORDERED: COUMADIN PO SCH (18:30)
[2017-04-08] MEDS: RANITIDINE HCL 150 MG TABLET (FP) PO SCH (21:40)
[2017-04-08] MEDS: ATORVASTATIN CA 10 MG TABLET (FP) PO SCH (21:40)
[2017-04-08] MEDS: PARoxetine HCL 10 MG TABLET (FP) PO SCH (21:40)
[2017-04-08] MEDS: METOPROLOL SUCCINATE 25 MG TAB.SR.24H (FP) PO SCH (21:40)
[2017-04-08] MEDS: HEPARIN NA (PORCINE) 5,000 UNITS/ML 1ML VIAL SQ SCH (21:40)
[2017-04-08] MEDS: CEFTRIAXONE 1 G/50 ML PREMIX 50 ML IVPB SCH (21:40)
[2017-04-08] MEDS: BRIMONIDINE TARTRATE 0.1% OPHTHALMIC 5 ML BOTTLE OU SCH (21:56)
[2017-04-08] MEDS: MELATONIN 1 MG TABLET PO SCH (21:56)
[2017-04-08] MEDS: DORZOLAMIDE 2% HCL OPHTHALMIC SOLUTION 10 ML BOTTLE OU SCH (21:57)
[2017-04-08] MEDS: TIMOLOL 0.5% OPHTHALMIC SOL 5 ML BOTTLE OU SCH (21:57)
[2017-04-08] MEDS ORDERED: PATIENT'S OWN MEDICATION (NON-FORMULARY) (Dorzolamide Hcl/Timolol Maleat [Cosopt Eye Drops OU SCH (22:00)
--- NOTE | 2017-04-09 01:17 | HOSP ---
Subjective - Review of Symptoms Events since last encounter: hospitalist encounter Notified by primary RN, that the patient reports having a headache A/P 76 y/o woman with a PMHx of: HTN, HLD, carotid artery disease, atrial fibrillation, severe valvular pathology, CVA with residual right eye blindness, hypothyroidism, and depression/anxiety. Placed on Observation for UTI Tylenol ordered now, prn Will continue to monitor HEENT: Yes: Head Aches Physical Examination Vital Signs: Vital Signs Temperature 98.8 F 04/08/17 21:52 Pulse Rate 88 04/08/17 21:52 Respiratory Rate 20 04/08/17 21:52 Blood Pressure 133/71 04/08/17 21:52 O2 Sat by Pulse Oximetry (%) 97 04/08/17 18:34 Labs: CBC, BMP 04/08/17 10:36 04/08/17 10:36 Troponin, BNP 04/08/17 10:49 Troponin I < 0.02 Intake & Output 04/06/17 04/07/17 04/08/17 04/09/17 23:59 23:59 23:59 23:59 Weight 57.697 kg Current Medications Generic Name Dose Route Start Last Admin Trade Name Freq PRN Reason Stop Dose Admin Acetaminophen 650 mg 04/09/17 01:15 Tylenol - PO Q6H PRN FEVER OR PAIN Acetazolamide 250 mg 04/09/17 10:00 Diamox - PO DAILY [facility] Amlodipine Besylate 10 mg 04/09/17 10:00 Norvasc - PO DAILY [place] Atorvastatin Calcium 10 mg 04/08/17 22:00 04/08/17 21:40 Lipitor - PO 10 mg HS [place] Administration Brimonidine Tartrate 1 drop 04/08/17 22:00 04/08/17 21:56 Alphagan P 0.1% - OU 1 drop TID [place] Administration Dorzolamide HCl 1 drop 04/08/17 22:00 04/08/17 21:57 Trusopt 2% OU 1 drop BID [place] Administration Heparin Sodium (Porcine) 5,000 unit 04/08/17 22:00 04/08/17 21:40 Heparin - SQ 5,000 unit TID [place] Administration CEFTRIAXONE 1 G/50 ML PREMIX 50 mls @ 100 mls/hr 04/08/17 18:45 04/08/17 21: 40 Ceftriaxone 1 Gm-D5w Bag IVPB 100 mls/hr DAILY [place] Administration Levothyroxine Sodium 100 mcg 04/09/17 07:00 Synthroid - PO DAILY@0700 [facility] Melatonin 3 mg 04/08/17 22:00 04/08/17 21:56 Melatonin PO 3 mg HS [place] Administration Metoprolol Succinate 25 mg 04/08/17 22:00 04/08/17 21:40 Toprol Xl - PO 25 mg BID [place] Administration Paroxetine HCl 10 mg 04/08/17 18:30 04/08/17 21:40 Paxil - PO 10 mg DAILY [place] Administration Ranitidine HCl 150 mg 04/08/17 22:00 04/08/17 21:40 Zantac - PO 150 mg BID [place] Administration Timolol Maleate 1 drop 04/08/17 22:00 04/08/17 21:57 Timoptic 0.5% OU 1 drop BID [place] Administration Warfarin Sodium 4 mg 04/09/17 18:00 Coumadin - PO DAILY@1800 [facility]
[2017-04-09] MEDS: ACETAMINOPHEN 325 MG TABLET (FP) PO PRN ×2 (01:39→16:06)
[2017-04-09] MEDS ORDERED: PT OWN MED DRAWER 7, Y5N ONE ×8 (06:52→21:23)
[2017-04-09] MEDS: BRIMONIDINE TARTRATE 0.1% OPHTHALMIC 5 ML BOTTLE OU SCH ×3 (06:58→21:12)
[2017-04-09] MEDS: LEVOTHYROXINE NA 100 MCG TABLET (FP) PO SCH (06:58)
[2017-04-09] MEDS: HEPARIN NA (PORCINE) 5,000 UNITS/ML 1ML VIAL SQ SCH ×3 (06:58→21:18)
[2017-04-09 07:34] LABS: BASO % 1.3 % (0-2.0); EOS % 2.3 % (0-4.5); HEMATOCRIT 33.9 % (32.4-45.2); HEMOGLOBIN 10.9 GM/dL (10.7-15.3); LYMPH % 36.6 % (8-40); MCH 26.5 pg (25.7-33.7); MCHC 32.1 g/dl (32.0-36.0); MEAN CELL VOLUME 82.6 fl (80-96); MONO % 12.1 % (3.8-10.2); NEUT % 47.7 % (42.8-82.8); PLATELET COUNT 169 K/MM3 (134-434); RDW 17.6 % (11.6-15.6); WHITE BLOOD COUNT 6.2 K/mm3 (4.0-10.0)
[2017-04-09 07:51] LABS: INR 2.67 (0.82-1.09); PROTHROMBIN TIME (PATIENT) 30.2 SEC (9.98-11.88)
[2017-04-09 07:55] LABS: ALBUMIN 3.3 g/dl (3.4-5.0); ANION GAP 8 (8-16); BILIRUBIN,TOTAL 0.5 mg/dL (0.2-1.0); BLOOD UREA NITROGEN 14 mg/dL (7-18); CHLORIDE 102 mmol/L (98-107); CO2 30 mmol/L (21-32); GLUCOSE,RANDOM 100 mg/dL (74-106); MAGNESIUM 1.5 mg/dL (1.8-2.4); PHOSPHOROUS 3.5 mg/dL (2.5-4.9); POTASSIUM 3.1 mmol/L (3.5-5.1); SGOT/AST 14 U/L (15-37); SGPT/ALT 15 U/L (12-78); SODIUM 140 mmol/L (136-145); TOT PROT 6.6 g/dl (6.4-8.2)
[2017-04-09 07:56] LABS: ALK PHOS 97 U/L (45-117)
[2017-04-09] MEDS: RANITIDINE HCL 150 MG TABLET (FP) PO SCH ×2 (09:12→21:13)
[2017-04-09] MEDS: PARoxetine HCL 10 MG TABLET (FP) PO SCH (09:12)
[2017-04-09] MEDS: DORZOLAMIDE 2% HCL OPHTHALMIC SOLUTION 10 ML BOTTLE OU SCH ×2 (09:12→21:12)
[2017-04-09] MEDS: CEFTRIAXONE 1 G/50 ML PREMIX 50 ML IVPB SCH (09:12)
[2017-04-09] MEDS: METOPROLOL SUCCINATE 25 MG TAB.SR.24H (FP) PO SCH ×2 (09:12→21:13)
[2017-04-09] MEDS: amLODIPine BESYLATE 10 MG TABLET (FP) PO SCH (09:12)
[2017-04-09] MEDS: TIMOLOL 0.5% OPHTHALMIC SOL 5 ML BOTTLE OU SCH ×2 (09:12→21:23)
--- NOTE | 2017-04-09 09:23 | DS ---
Physical Exam: SUBJECTIVE: Patient seen and examined OBJECTIVE: Vital Signs Period Temp Pulse Resp BP Sys/Mccall Pulse Ox Last 24 Hr 97 F-98.8 F 65-88 14-20 127-154/54-71 97-99 PHYSICAL EXAM GENERAL: The patient is awake, alert, and fully oriented, in no acute distress. HEAD: Normal with no signs of trauma. EYES: PERRL, extraocular movements intact, sclera anicteric, conjunctiva clear. ENT: Ears normal, nares patent, oropharynx clear without exudates, moist mucous membranes. NECK: Trachea midline, full range of motion, supple. LUNGS: Breath sounds equal, clear to auscultation bilaterally, no wheezes, no crackles, no accessory muscle use. HEART: Regular rate and rhythm, S1, S2 without murmur, rub or gallop. ABDOMEN: Soft, nontender, nondistended, normoactive bowel sounds, no guarding, no rebound, no hepatosplenomegaly, no masses. EXTREMITIES: 2+ pulses, warm, well-perfused, no edema. NEUROLOGICAL: Cranial nerves II through XII grossly intact. Normal speech, gait not observed. PSYCH: Normal mood, normal affect. SKIN: Warm, dry, normal turgor, no rashes or lesions noted. LABS Laboratory Results - last 24 hr 04/08/17 04/08/17 04/08/17 10:36 10:36 10:36 WBC 7.3 RBC 4.16 Hgb 11.0 Hct 34.6 MCV 83.3 MCH 26.5 MCHC 31.8 L RDW 17.2 H Plt Count 172 MPV 8.1 Neutrophils % 75.7 Lymphocytes % 14.7 D Monocytes % 8.0 Eosinophils % 0.7 Basophils % 0.9 PT with INR 30.20 H INR 2.67 H PTT (Actin FS) 38.8 H D Sodium 139 Potassium 3.7 Chloride 102 Carbon Dioxide 31 D Anion Gap 6 L BUN 17 D Creatinine 1.1 H D Creat Clearance w eGFR 48.04 Random Glucose 136 H D Lactic Acid Calcium 8.1 L Phosphorus Magnesium Total Bilirubin 0.6 AST 23 D ALT 19 Alkaline Phosphatase 102 Creatine Kinase Troponin I Total Protein 7.3 Albumin 3.6 Urine Color Urine Appearance Urine pH Ur Specific [place] Urine Protein Urine Glucose (UA) Urine Ketones Urine Blood Urine Nitrite Urine Bilirubin Urine Urobilinogen Urine WBC (Auto) Urine RBC (Auto) Ur Epithelial Cells Urine Bacteria Hyaline Casts Urine Mucus Blood Type Antibody Screen 04/08/17 04/08/17 04/08/17 10:36 10:36 10:49 WBC RBC Hgb Hct MCV MCH MCHC RDW Plt Count MPV Neutrophils % Lymphocytes % Monocytes % Eosinophils % Basophils % PT with INR INR PTT (Actin FS) Sodium Potassium Chloride Carbon Dioxide Anion Gap BUN Creatinine Creat Clearance w eGFR Random Glucose Lactic Acid 1.2 Calcium Phosphorus Magnesium Total Bilirubin AST ALT Alkaline Phosphatase Creatine Kinase 97 Troponin I < 0.02 Total Protein Albumin Urine Color Urine Appearance Urine pH Ur Specific [place] Urine Protein Urine Glucose (UA) Urine Ketones Urine Blood Urine Nitrite Urine Bilirubin Urine Urobilinogen Urine WBC (Auto) Urine RBC (Auto) Ur Epithelial Cells Urine Bacteria Hyaline Casts Urine Mucus Blood Type A POSITIVE Antibody Screen Negative 04/08/17 04/09/17 04/09/17 12:40 06:00 06:00 WBC 6.2 RBC 4.10 Hgb 10.9 Hct 33.9 MCV 82.6 MCH 26.5 MCHC 32.1 RDW 17.6 H Plt Count 169 MPV 9.0 D Neutrophils % 47.7 D Lymphocytes % 36.6 D Monocytes % 12.1 H Eosinophils % 2.3 D Basophils % 1.3 PT with INR INR PTT (Actin FS) Sodium 140 Potassium 3.1 L Chloride 102 Carbon Dioxide 30 Anion Gap 8 BUN 14 Creatinine 1.0 Creat Clearance w eGFR 53.62 Random Glucose 100 D Lactic Acid Calcium 8.0 L Phosphorus 3.5 Magnesium 1.5 L D Total Bilirubin 0.5 AST 14 L D ALT 15 D Alkaline Phosphatase 97 Creatine Kinase Troponin I Total Protein 6.6 Albumin 3.3 L Urine Color Yellow Urine Appearance Cloudy Urine pH 6.0 Ur Specific [place] 1.012 Urine Protein 2+ H Urine Glucose (UA) Negative Urine Ketones Negative Urine Blood 2+ H Urine Nitrite Negative Urine Bilirubin Negative Urine Urobilinogen Negative Urine WBC (Auto) 62 Urine RBC (Auto) 18 Ur Epithelial Cells Rare Urine Bacteria Rare Hyaline Casts 3 Urine Mucus Moderate Blood Type Antibody Screen 04/09/17 06:00 WBC RBC Hgb Hct MCV MCH MCHC RDW Plt Count MPV Neutrophils % Lymphocytes % Monocytes % Eosinophils % Basophils % PT with INR 30.20 H INR 2.67 H PTT (Actin FS) Sodium Potassium Chloride Carbon Dioxide Anion Gap BUN Creatinine Creat Clearance w eGFR Random Glucose Lactic Acid Calcium Phosphorus Magnesium Total Bilirubin AST ALT Alkaline Phosphatase Creatine Kinase Troponin I Total Protein Albumin Urine Color Urine Appearance Urine pH Ur Specific [place] Urine Protein Urine Glucose (UA) Urine Ketones Urine Blood Urine Nitrite Urine Bilirubin Urine Urobilinogen Urine WBC (Auto) Urine RBC (Auto) Ur Epithelial Cells Urine Bacteria Hyaline Casts Urine Mucus Blood Type Antibody Screen HOSPITAL COURSE: Date of Admission:04/08/17 Date of Discharge: 04/09/17 Discharge Summary Reason For Visit: UTI,DIZZINESS Current Active Problems Pre-syncope (Acute) UTI (urinary tract infection) (Acute) - Instructions Referrals: Eduardo Marmolejo MD [Primary Care Provider] - - Home Medications Comprehensive Discharge Medication List: Ambulatory Orders Acetaminophen 650 mg PO Q6H PRN 04/08/17 Acetazolamide [Diamox -] 250 mg PO DAILY 04/08/17 Amlodipine Besylate 10 mg PO DAILY 04/08/17 Atorvastatin Ca [Lipitor] 10 mg PO DAILY 04/08/17 Atropine 1% Ophth. Solution - [Atropine Ophthalmic Solution] 1 drop OU DAILY 08/19 Brimonidine Tartrate [Alphagan P 0.1% -] 1 drop OU TID 04/08/17 Dorzolamide HCl/Timolol Maleat [Cosopt Eye Drops] 1 drop OU BID 04/08/17 Levothyroxine [Synthroid -] 100 mcg PO DAILY 04/08/17 Melatonin 3 mg PO HS 04/08/17 Metoprolol Succinate 25 mg PO BID 04/08/17 Paroxetine HCl [Paxil -] 10 mg PO DAILY 04/08/17 Ranitidine HCl 150 mg PO BID 04/08/17 Warfarin Sodium [Coumadin] 4 mg PO DAILY 04/08/17
[2017-04-09] MEDS ORDERED: ATROPINE SO4 1% OPHTH SOLN 5 ML BOTTLE OU SCH (10:00)
[2017-04-09] MEDS: acetaZOLAMIDE 250 MG TABLET PO SCH (12:23)
--- NOTE | 2017-04-09 13:34 | EKG ---
Test Reason : Blood Pressure : / mmHG Vent. Rate : 064 BPM Atrial Rate : 277 BPM P-R Int : 000 ms QRS Dur : 110 ms QT Int : 406 ms P-R-T Axes : 000 024 225 degrees QTc Int : 418 ms ATRIAL FIBRILLATION ABNORMAL ECG WHEN COMPARED WITH ECG OF 06-AUG-2016 11:10, ATRIAL FIBRILLATION HAS REPLACED SINUS RHYTHM T WAVE INVERSION NOW EVIDENT IN INFERIOR LEADS Confirmed by LEXIE KHALIL MD ([id number]) on 04/09/2017 1:34:23 PM Referred By: Confirmed By:LEXIE KHALIL MD
[2017-04-09] MEDS ORDERED: MAGNESIUM SULF 50% (8.12 MEQ/2 ML-1 GM VIAL) IVPB ONE (14:12)
[2017-04-09] MEDS ORDERED: POTASSIUM CHLORIDE TABS 20 MEQ TABLET.ER (FP) PO SCH (14:15)
--- NOTE | 2017-04-09 14:54 | PN ---
Physical Exam: SUBJECTIVE: Patient seen and examined at bedside. Feels well, no complaints. OBJECTIVE: Vital Signs Period Temp Pulse Resp BP Sys/Mccall Pulse Ox Last 24 Hr 97 F-98.8 F 66-88 14-20 127-154/58-71 96-99 GENERAL: The patient is awake, alert, and fully oriented, in no acute distress. LUNGS: Breath sounds equal, clear to auscultation HEART: Regular rate and rhythm, S1, S2 ABDOMEN: Soft, nontender, nondistended, normoactive bowel sounds, no guarding, no rebound EXTREMITIES: 2+ pulses, warm, well-perfused, no edema. NEUROLOGICAL: Cranial nerves II through XII grossly intact. Normal speech Laboratory Results - last 24 hr 04/09/17 04/09/17 04/09/17 06:00 06:00 06:00 WBC 6.2 RBC 4.10 Hgb 10.9 Hct 33.9 MCV 82.6 MCH 26.5 MCHC 32.1 RDW 17.6 H Plt Count 169 MPV 9.0 D Neutrophils % 47.7 D Lymphocytes % 36.6 D Monocytes % 12.1 H Eosinophils % 2.3 D Basophils % 1.3 PT with INR 30.20 H INR 2.67 H Sodium 140 Potassium 3.1 L Chloride 102 Carbon Dioxide 30 Anion Gap 8 BUN 14 Creatinine 1.0 Creat Clearance w eGFR 53.62 Random Glucose 100 D Calcium 8.0 L Phosphorus 3.5 Magnesium 1.5 L D Total Bilirubin 0.5 AST 14 L D ALT 15 D Alkaline Phosphatase 97 Total Protein 6.6 Albumin 3.3 L Active Medications Generic Name Dose Route Start Last Admin Trade Name Dgq PRN Reason Stop Dose Admin Acetaminophen 650 mg 04/09/17 01:15 04/09/17 01:39 Tylenol - PO 650 mg Q6H PRN Administration FEVER OR PAIN Acetazolamide 250 mg 04/09/17 10:00 04/09/17 12:23 Diamox - PO 250 mg DAILY [place] Administration Amlodipine Besylate 10 mg 04/09/17 10:00 04/09/17 09:12 Norvasc - PO 10 mg DAILY [place] Administration Atorvastatin Calcium 10 mg 04/08/17 22:00 04/08/17 21:40 Lipitor - PO 10 mg HS [place] Administration Brimonidine Tartrate 1 drop 04/08/17 22:00 04/09/17 06:58 Alphagan P 0.1% - OU 1 drop TID [place] Administration Dorzolamide HCl 1 drop 04/08/17 22:00 04/09/17 09:12 Trusopt 2% OU 1 drop BID [place] Administration Heparin Sodium (Porcine) 5,000 unit 04/08/17 22:00 04/09/17 06:58 Heparin - SQ 5,000 unit TID [place] Administration CEFTRIAXONE 1 G/50 ML PREMIX 50 mls @ 100 mls/hr 04/08/17 18:45 04/09/17 09: 12 Ceftriaxone 1 Gm-D5w Bag IVPB 100 mls/hr DAILY [place] Administration Levothyroxine Sodium 100 mcg 04/09/17 07:00 04/09/17 06:58 Synthroid - PO 100 mcg DAILY@0700 [facility] Administration Magnesium Sulfate 2 gm 04/09/17 14:12 Magnesium Sulfate IVPB 04/09/17 14:13 ONCE ONE Melatonin 3 mg 04/08/17 22:00 04/08/17 21:56 Melatonin PO 3 mg HS [facility] Administration Metoprolol Succinate 25 mg 04/08/17 22:00 04/09/17 09:12 Toprol Xl - PO 25 mg BID [place] Administration Paroxetine HCl 10 mg 04/08/17 18:30 04/09/17 09:12 Paxil - PO 10 mg DAILY [place] Administration Potassium Chloride 40 meq 04/09/17 14:15 K-Dur - PO 04/09/17 20:16 Q6H [facility] Ranitidine HCl 150 mg 04/08/17 22:00 04/09/17 09:12 Zantac - PO 150 mg BID [place] Administration Timolol Maleate 1 drop 04/08/17 22:00 04/09/17 09:12 Timoptic 0.5% OU 1 drop BID [place] Administration Warfarin Sodium 4 mg 04/09/17 18:00 Coumadin - PO DAILY@1800 [facility] ASSESSMENT/PLAN: 76 year-old female with a PMH significant for HTN, HLD, carotid artery disease, atrial fibrillation, severe valvular pathology, CVA with residual right eye blindness, hypothyroidism, and depression/anxiety. Placed on observation for UTI. UTI --culture + Strep D or enterococcus --start augmentin PO x 7 days Atrial fibrillation --rate well-controlled --INR 2.67, continue current dosing coumadin --repeat ECG pending --telemetry monitoring Elevated creatinine, resolved --Cr 1.0 Severe valvular pathology --12/28/15 Echo: normal LV; normal RV; LAE; severe MR; mild to moderate TR; pHTN; moderate to severe AI --appears euvolemic Hypertension --BP well-controlled --continue Toprol XL, amlodipine Hyperlipidemia --continue Lipitor Carotid artery disease --continue Toprol XL, Lipitor CVA w/ right eye blindness --falls precautions Hypothyroidism --continue levothyroxine Depression/anxiety --continue Paxil FEN Fluids: PO intake adequate Electrolytes: replete as indicated Nutrition: low sodium DVT prophylaxis: subq heparin Dispo: continues to require observation. Visit type - Emergency Visit Emergency Visit: Yes ED Registration Date: 04/08/17 Care time: The patient presented to the Emergency Department on the above date and was hospitalized for further evaluation of their emergent condition. - New Patient This patient is new to me today: No - Critical Care Critical Care patient: No
[2017-04-09] MEDS: POTASSIUM CHLORIDE TABS 20 MEQ TABLET.ER (FP) PO SCH ×2 (16:06→21:10)
[2017-04-09] MEDS: WARFARIN NA 2 MG TABLET (UD) PO SCH (17:45)
[2017-04-09] MEDS: MAGNESIUM 1GM/D5W - 1 GM/100 ML IVPB IVPB SCH ×2 (17:45→18:47)
[2017-04-09] MEDS: ATORVASTATIN CA 10 MG TABLET (FP) PO SCH (21:13)
[2017-04-09] MEDS: MELATONIN 1 MG TABLET PO SCH (21:14)
[2017-04-10] MEDS: ACETAMINOPHEN 325 MG TABLET (FP) PO PRN (02:50)
[2017-04-10] MEDS: BRIMONIDINE TARTRATE 0.1% OPHTHALMIC 5 ML BOTTLE OU SCH ×3 (07:03→23:37)
[2017-04-10] MEDS: LEVOTHYROXINE NA 100 MCG TABLET (FP) PO SCH (07:03)
[2017-04-10] MEDS ORDERED: PT OWN MED DRAWER 7, Y5N ONE ×5 (07:03→23:40)
[2017-04-10] MEDS: AMOX TR/POT CLAV 875MG/125MG TABLETS (FP) PO SCH ×2 (07:03→17:30)
[2017-04-10] MEDS: HEPARIN NA (PORCINE) 5,000 UNITS/ML 1ML VIAL SQ SCH ×3 (07:03→22:54)
[2017-04-10 07:46] LABS: BASO % 1.2 % (0-2.0); EOS % 1.8 % (0-4.5); HEMATOCRIT 32.4 % (32.4-45.2); HEMOGLOBIN 10.4 GM/dL (10.7-15.3); LYMPH % 37.9 % (8-40); MCH 26.6 pg (25.7-33.7); MEAN CELL VOLUME 83.1 fl (80-96); MEAN PLT VOLUME 8.5 fl (7.5-11.1); MONO % 9.3 % (3.8-10.2); NEUT % 49.8 % (42.8-82.8); PLATELET COUNT 174 K/MM3 (134-434); RDW 17.4 % (11.6-15.6); WHITE BLOOD COUNT 6.6 K/mm3 (4.0-10.0)
[2017-04-10 08:36] LABS: ALBUMIN 3.5 g/dl (3.4-5.0); ALK PHOS 87 U/L (45-117); ANION GAP 8 (8-16); BILIRUBIN,TOTAL 0.5 mg/dL (0.2-1.0); BLOOD UREA NITROGEN 17 mg/dL (7-18); CALCIUM 8.3 mg/dL (8.5-10.1); CHLORIDE 104 mmol/L (98-107); CO2 28 mmol/L (21-32); CREATININE 1.3 mg/dL (0.55-1.02); GLUCOSE,RANDOM 96 mg/dL (74-106); PHOSPHOROUS 4.3 mg/dL (2.5-4.9); POTASSIUM 3.6 mmol/L (3.5-5.1); SGOT/AST 17 U/L (15-37); SGPT/ALT 15 U/L (12-78); SODIUM 140 mmol/L (136-145); TOT PROT 6.6 g/dl (6.4-8.2)
[2017-04-10 09:52] LABS: URINE APPEARANCE CLEAR; URINE BILIRUBIN NEGATIVE (NEGATIVE); URINE BLOOD NEGATIVE (NEGATIVE); URINE COLOR LTYELLOW; URINE GLUCOSE (UA) NEGATIVE (NEGATIVE); URINE KETONE NEGATIVE (NEGATIVE); URINE NITRITE NEGATIVE (NEGATIVE); URINE PROTEIN NEGATIVE (NEGATIVE); URINE UROBILINOGEN NEGATIVE mg/dL (0.2-1.0)
[2017-04-10 09:57] LABS: URINE LEUK ESTERASE 1+ (NEGATIVE)
[2017-04-10 09:59] LABS: EPI CELLS RARE /HPF (FEW); URINE HYALINE CAST 4 /lpf; URINE MUCUS RARE
--- NOTE | 2017-04-10 10:44 | CON.CARD ---
Cardiology Consult (text) - Consultation Consultation Note: Chief Complaint: dizzy History of Present Illness: 76F with hx of CVAs, PAF on coumadin, severe MR and moderate to severe AR sent from [place] for [place]iness. Pt feeling well now. No cp, sob, palps, loc, pnd, orthopnea, le edema. Found to have uti, getting abx. - History Source History Provided By: Patient - Past Medical History [employer]: Yes: CVA (embolic central retinal artery CVAs) Cardio/Vascular: Yes: AFIB, CAD, HTN, Hyperlipdemia, Other (moderate to severe b /l carotid disease; moderate to severe MR and AR) Pulmonary: Yes: COPD Psych: Yes: Anxiety Musculoskeletal: Yes: Osteoarthritis Endocrine: Yes: Hypothyroidism (following total thyroidectomy for benign disease ) - Past Surgical History Past Surgical History: Yes: Cholecystectomy - Alcohol/Substance Use Hx Alcohol Use: No History of Substance Use: reports: None - Smoking History Smoking history: Former smoker - Social History ADL: Support Services 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 [employer] History of Recent Travel: No Home Medications Current Medications Generic Name Dose Route Start Last Admin Trade Name Freq PRN Reason Stop Dose Admin Acetaminophen 650 mg 04/09/17 01:15 04/10/17 02:50 Tylenol - PO 650 mg Q6H PRN Administration FEVER OR PAIN Acetazolamide 250 mg 04/09/17 10:00 04/09/17 12:23 Diamox - PO 250 mg DAILY [facility] Administration Amlodipine Besylate 10 mg 04/09/17 10:00 04/09/17 09:12 Norvasc - PO 10 mg DAILY [facility] Administration Amoxicillin/Clavulanate Potassium 1 tab 04/10/17 08:00 04/10/17 07:03 Augmentin - 875mg Tablet PO 1 tab BID@0800,1730 [facility] Administration Atorvastatin Calcium 10 mg 04/08/17 22:00 04/09/17 21:13 Lipitor - PO 10 mg HS [facility] Administration Brimonidine Tartrate 1 drop 04/08/17 22:00 04/10/17 07:03 Alphagan P 0.1% - OU 1 drop TID [facility] Administration Dorzolamide HCl 1 drop 04/08/17 22:00 04/09/17 21:12 Trusopt 2% OU 1 drop BID [facility] Administration Heparin Sodium (Porcine) 5,000 unit 04/08/17 22:00 04/10/17 07:03 Heparin - SQ 5,000 unit TID [facility] Administration Levothyroxine Sodium 100 mcg 04/09/17 07:00 04/10/17 07:03 Synthroid - PO 100 mcg DAILY@0700 [facility] Administration Melatonin 3 mg 04/08/17 22:00 04/09/17 21:14 Melatonin PO 3 mg HS [facility] Administration Metoprolol Succinate 25 mg 04/08/17 22:00 04/09/17 21:13 Toprol Xl - PO 25 mg BID [facility] Administration Paroxetine HCl 10 mg 04/08/17 18:30 04/09/17 09:12 Paxil - PO 10 mg DAILY [facility] Administration Ranitidine HCl 150 mg 04/08/17 22:00 04/09/17 21:13 Zantac - PO 150 mg BID [facility] Administration Timolol Maleate 1 drop 04/08/17 22:00 04/09/17 21:23 Timoptic 0.5% OU 1 drop BID [facility] Administration Warfarin Sodium 4 mg 04/09/17 18:00 04/09/17 17:45 Coumadin - PO 4 mg DAILY@1800 [facility] Administration Home Medications Medication Instructions Recorded Acetaminophen 650 mg PO Q6H PRN 04/08/17 Acetazolamide [Diamox -] 250 mg PO DAILY 04/08/17 Amlodipine Besylate 10 mg PO DAILY 04/08/17 Atorvastatin Ca [Lipitor] 10 mg PO DAILY 04/08/17 Atropine 1% Ophth. Solution - 1 drop OU DAILY 04/08/17 [Atropine Ophthalmic Solution] Brimonidine Tartrate [Alphagan P 1 drop OU TID 04/08/17 0.1% -] Dorzolamide HCl/Timolol Maleat 1 drop OU BID 04/08/17 [Cosopt Eye Drops] Levothyroxine [Synthroid -] 100 mcg PO DAILY 04/08/17 Melatonin 3 mg PO HS 04/08/17 Metoprolol Succinate 25 mg PO BID 04/08/17 Paroxetine HCl [Paxil -] 10 mg PO DAILY 04/08/17 Ranitidine HCl 150 mg PO BID 04/08/17 Warfarin Sodium [Coumadin] 4 mg PO DAILY 04/08/17 Amoxicillin/Potassium Clav 1 each PO BID #12 tablet 04/09/17 [Augmentin 875-125 Tablet] Family Disease History - Family Disease History Family Disease History: Heart Disease: Father, Mother, CA: Sister (3 sisters of BRAC positive breast cancer, also ovarian cancer and leukemia) Review of Systems Findings/Remarks: see HPI - Review of Systems Cardiovascular: reports: No Symptoms Respiratory: reports: SOB on Exertion (chronic) Gastrointestinal: denies: No Symptoms, Abdominal Pain, Bloating, Constipation, Diarrhea, Dysphagia, Indigestion, Melena, Nausea, Rectal Bleeding, Vomiting, Vomiting Blood, Other Genitourinary: denies: No Symptoms, Burning, Discharge, Dysuria, Flank Pain, Frequency, Hematuria, Incontinence, Lesions, Menses, Pain, Testicular Mass, Testicular Pain, Testicular Swelling, Urgency, Vaginal Bleeding, Other Breasts: denies: No Symptoms Reported, See HPI, Breast Implants, Discharge from Nipple, Lumps, Pain, Skin Changes, Other Musculoskeletal: denies: No Symptoms, Back Pain, Crepitus, Decreased ROM, Extremity Pain, Joint Pain, Joint Swelling, Muscle Pain, Muscle Cramps, Muscle Weakness, Other Integumentary: denies: No Symptoms, Blister, Bruising, Change in Color, Eczema, Erythema, Incision, Lesions, Lump, Pallor, Pruritis, Rash, Wound, Other Endocrine: denies: No Symptoms, Excessive Sweating, Flushing, Increased Hunger, Increased Thirst, Intolerance to Cold, Intolerance to Heat, Unexplained Weight Gain, Unexplained Weight Loss, Other Hematology/Lymphatic: denies: No Symptoms, Easily Bruised, Excessive Bleeding, Swollen Glands, Other Psychiatric: denies: No Symptoms, Altered Sleep Pattern, Anxiety, Depression, Hallucinations, Panic, Paranoia, Suicidal, Other - Risk Factors Known Risk Factors: Yes: Prior SC /Emb Stroke, Smoking Vital Signs: Vital Signs Period Temp Pulse Resp BP Sys/Mccall Pulse Ox Last 24 Hr 97.9 F-98.5 F 63-90 16-20 102-147/53-71 98 Constitutional: Yes: No Distress Eyes: Yes: Conjunctiva Clear Respiratory: Yes: CTA Bilaterally Gastrointestinal: Yes: Soft Cardiovascular: Yes: irreg JVD: No Carotid Bruit: No PMI: Non-Displaced Heart Sounds: Yes: S1, S2 Murmur: Yes: Systolic Murmur, Diastolic Murmur (audible throughout the precordium) Edema: No Peripheral Pulses WNL: Yes Neurological: Yes: Alert no jaundice diaphoresis - Other Data Labs, Other Data: Laboratory Last Values WBC 6.6 K/mm3 (4.0-10.0) 04/10/17 07:24 RBC 3.90 M/mm3 (3.60-5.2) 04/10/17 07:24 Hgb 10.4 GM/dL (10.7-15.3) L 04/10/17 07:24 Hct 32.4 % (32.4-45.2) 04/10/17 07:24 MCV 83.1 fl (80-96) 04/10/17 07:24 MCH 26.6 pg (25.7-33.7) 04/10/17 07:24 MCHC 32.0 g/dl (32.0-36.0) 04/10/17 07:24 RDW 17.4 % (11.6-15.6) H 04/10/17 07:24 Plt Count 174 K/MM3 (134-434) 04/10/17 07:24 MPV 8.5 fl (7.5-11.1) 04/10/17 07:24 Neutrophils % 49.8 % (42.8-82.8) 04/10/17 07:24 Lymphocytes % 37.9 % (8-40) 04/10/17 07:24 Monocytes % 9.3 % (3.8-10.2) 04/10/17 07:24 Eosinophils % 1.8 % (0-4.5) 04/10/17 07:24 Basophils % 1.2 % (0-2.0) 04/10/17 07:24 PT with INR 30.20 SEC (9.98-11.88) H 04/09/17 06:00 INR 2.67 (0.82-1.09) H 04/09/17 06:00 PTT (Actin FS) 38.8 SECONDS (26.9-34.4) H D 04/08/17 10:36 Sodium 140 mmol/L (136-145) 04/10/17 07:24 Potassium 3.6 mmol/L (3.5-5.1) 04/10/17 07:24 Chloride 104 mmol/L (98-107) 04/10/17 07:24 Carbon Dioxide 28 mmol/L (21-32) 04/10/17 07:24 Anion Gap 8 (8-16) 04/10/17 07:24 BUN 17 mg/dL (7-18) D 04/10/17 07:24 Creatinine 1.3 mg/dL (0.55-1.02) H D 04/10/17 07:24 Creat Clearance w eGFR 39.61 (>60) 04/10/17 07:24 Random Glucose 96 mg/dL (74-106) 04/10/17 07:24 Lactic Acid 1.2 mmol/L (0.4-2.0) 04/08/17 10:36 Calcium 8.3 mg/dL (8.5-10.1) L 04/10/17 07:24 Phosphorus 4.3 mg/dL (2.5-4.9) D 04/10/17 07:24 Magnesium 2.0 mg/dL (1.8-2.4) D 04/10/17 07:24 Total Bilirubin 0.5 mg/dL (0.2-1.0) 04/10/17 07:24 AST 17 U/L (15-37) D 04/10/17 07:24 ALT 15 U/L (12-78) 04/10/17 07:24 Alkaline Phosphatase 87 U/L (45-117) 04/10/17 07:24 Creatine Kinase 97 IU/L (26-192) 04/08/17 10:49 Troponin I < 0.02 ng/ml (0.00-0.05) 04/08/17 10:49 Total Protein 6.6 g/dl (6.4-8.2) 04/10/17 07:24 Albumin 3.5 g/dl (3.4-5.0) 04/10/17 07:24 Urine Color Ltyellow 04/10/17 07:15 Urine Appearance Clear 04/10/17 07:15 Urine pH 7.0 (5.0-8.0) 04/10/17 07:15 Ur Specific [place] 1.012 (1.001-1.035) 04/10/17 07:15 Urine Protein Negative (NEGATIVE) 04/10/17 07:15 Urine Glucose (UA) Negative (NEGATIVE) 04/10/17 07:15 Urine Ketones Negative (NEGATIVE) 04/10/17 07:15 Urine Blood Negative (NEGATIVE) 04/10/17 07:15 Urine Nitrite Negative (NEGATIVE) 04/10/17 07:15 Urine Bilirubin Negative (NEGATIVE) 04/10/17 07:15 Urine Urobilinogen Negative mg/dL (0.2-1.0) 04/10/17 07:15 Ur Leukocyte Esterase 1+ (NEGATIVE) H 04/10/17 07:15 Urine WBC (Auto) 32 /hpf (3-5) 04/10/17 07:15 Urine RBC (Auto) 2 /hpf (0-3) 04/10/17 07:15 Ur Epithelial Cells Rare /HPF (FEW) 04/10/17 07:15 Urine Bacteria Rare /hpf (NONE SEEN) 04/08/17 12:40 Hyaline Casts 4 /lpf 04/10/17 07:15 Urine Mucus Rare 04/10/17 07:15 Blood Type A POSITIVE 04/08/17 10:36 Antibody Screen Negative 04/08/17 10:36 ecg 04/08/17: afib, lat twis, no st changes, nl qtc cxr: clear lungs tele: afib, rate controlled Assessment/Plan 76F with hx of CVAs, PAF on coumadin, severe MR and moderate to severe AR sent from [place] for [place]iness. dizzy: -resolved -likely 2/2 infection/uti -cont abx, ivfs HTN: -cont current medical regimen Pafib-with h/o CVA: -cont warfarin per inr -cont toprol, rate controlled hld: -cont statin Valvular heart disease-h/o severe MR and mod to sev AR: -stable, euvolemic -outpatient follow up
[2017-04-10] MEDS: RANITIDINE HCL 150 MG TABLET (FP) PO SCH ×2 (11:17→22:53)
[2017-04-10] MEDS: amLODIPine BESYLATE 10 MG TABLET (FP) PO SCH (11:17)
[2017-04-10] MEDS: METOPROLOL SUCCINATE 25 MG TAB.SR.24H (FP) PO SCH ×2 (11:17→22:53)
[2017-04-10] MEDS: PARoxetine HCL 10 MG TABLET (FP) PO SCH (11:17)
[2017-04-10] MEDS: acetaZOLAMIDE 250 MG TABLET PO SCH (11:18)
[2017-04-10] MEDS: DORZOLAMIDE 2% HCL OPHTHALMIC SOLUTION 10 ML BOTTLE OU SCH ×2 (11:18→22:53)
[2017-04-10] MEDS: TIMOLOL 0.5% OPHTHALMIC SOL 5 ML BOTTLE OU SCH ×2 (11:18→22:53)
--- NOTE | 2017-04-10 11:33 | EKG ---
Test Reason : Blood Pressure : / mmHG Vent. Rate : 078 BPM Atrial Rate : 070 BPM P-R Int : 000 ms QRS Dur : 108 ms QT Int : 404 ms P-R-T Axes : 000 030 244 degrees QTc Int : 460 ms ATRIAL FIBRILLATION ABNORMAL ECG WHEN COMPARED WITH ECG OF 08-APR-2017 10:07, NO SIGNIFICANT CHANGE WAS FOUND Confirmed by LEXIE KHALIL MD ([id number]) on 04/10/2017 11:33:02 AM Referred By: Domingo DESAI Confirmed By:LEXIE KHALIL MD
[2017-04-10] MEDS: WARFARIN NA 2 MG TABLET (UD) PO SCH (17:30)
--- NOTE | 2017-04-10 20:07 | PN ---
Physical Exam: SUBJECTIVE: Patient seen and examined at bedside. Resting comfortably. Very chatty. OBJECTIVE: Vital Signs Period Temp Pulse Resp BP Sys/Mccall Pulse Ox Last 24 Hr 97.8 F-98.2 F 54-86 16-19 102-134/45-67 96-98 GENERAL: The patient is awake, alert, and fully oriented, in no acute distress. LUNGS: Breath sounds equal, clear to auscultation HEART: Regular rate and rhythm, S1, S2 ABDOMEN: Soft, nontender, nondistended, normoactive bowel sounds, no guarding, no rebound EXTREMITIES: 2+ pulses, warm, well-perfused, no edema. NEUROLOGICAL: Cranial nerves II through XII grossly intact. Normal speech Laboratory Results - last 24 hr 04/10/17 04/10/17 04/10/17 07:15 07:24 07:24 WBC 6.6 RBC 3.90 Hgb 10.4 L Hct 32.4 MCV 83.1 MCH 26.6 MCHC 32.0 RDW 17.4 H Plt Count 174 MPV 8.5 Neutrophils % 49.8 Lymphocytes % 37.9 Monocytes % 9.3 Eosinophils % 1.8 Basophils % 1.2 Sodium 140 Potassium 3.6 Chloride 104 Carbon Dioxide 28 Anion Gap 8 BUN 17 D Creatinine 1.3 H D Creat Clearance w eGFR 39.61 Random Glucose 96 Calcium 8.3 L Phosphorus 4.3 D Magnesium 2.0 D Total Bilirubin 0.5 AST 17 D ALT 15 Alkaline Phosphatase 87 Total Protein 6.6 Albumin 3.5 Urine Color Ltyellow Urine Appearance Clear Urine pH 7.0 Ur Specific [place] 1.012 Urine Protein Negative Urine Glucose (UA) Negative Urine Ketones Negative Urine Blood Negative Urine Nitrite Negative Urine Bilirubin Negative Urine Urobilinogen Negative Ur Leukocyte Esterase 1+ H Urine WBC (Auto) 32 Urine RBC (Auto) 2 Ur Epithelial Cells Rare Hyaline Casts 4 Urine Mucus Rare Active Medications Generic Name Dose Route Start Last Admin Trade Name Freq PRN Reason Stop Dose Admin Acetaminophen 650 mg 04/09/17 01:15 04/10/17 02:50 Tylenol - PO 650 mg Q6H PRN Administration FEVER OR PAIN Acetazolamide 250 mg 04/09/17 10:00 04/10/17 11:18 Diamox - PO 250 mg DAILY [facility] Administration Amlodipine Besylate 10 mg 04/09/17 10:00 04/10/17 11:17 Norvasc - PO 10 mg DAILY [facility] Administration Amoxicillin/Clavulanate Potassium 1 tab 04/10/17 08:00 04/10/17 17:30 Augmentin - 875mg Tablet PO 1 tab BID@0800,1730 [facility] Administration Atorvastatin Calcium 10 mg 04/08/17 22:00 04/09/17 21:13 Lipitor - PO 10 mg HS [facility] Administration Brimonidine Tartrate 1 drop 04/08/17 22:00 04/10/17 15:10 Alphagan P 0.1% - OU 1 drop TID [facility] Administration Dorzolamide HCl 1 drop 04/08/17 22:00 04/10/17 11:18 Trusopt 2% OU 1 drop BID [facility] Administration Heparin Sodium (Porcine) 5,000 unit 04/08/17 22:00 04/10/17 15:10 Heparin - SQ 5,000 unit TID [facility] Administration Levothyroxine Sodium 100 mcg 04/09/17 07:00 04/10/17 07:03 Synthroid - PO 100 mcg DAILY@0700 [facility] Administration Melatonin 3 mg 04/08/17 22:00 04/09/17 21:14 Melatonin PO 3 mg HS [facility] Administration Metoprolol Succinate 25 mg 04/08/17 22:00 04/10/17 11:17 Toprol Xl - PO 25 mg BID [facility] Administration Paroxetine HCl 10 mg 04/08/17 18:30 04/10/17 11:17 Paxil - PO 10 mg DAILY [facility] Administration Ranitidine HCl 150 mg 04/08/17 22:00 04/10/17 11:17 Zantac - PO 150 mg BID [facility] Administration Timolol Maleate 1 drop 04/08/17 22:00 04/10/17 11:18 Timoptic 0.5% OU 1 drop BID [facility] Administration Warfarin Sodium 4 mg 04/09/17 18:00 04/10/17 17:30 Coumadin - PO 4 mg DAILY@1800 [facility] Administration ASSESSMENT/PLAN 76 year-old female with a PMH significant for HTN, HLD, carotid artery disease, atrial fibrillation, severe valvular pathology, CVA with residual right eye blindness, hypothyroidism, and depression/anxiety. Placed on observation for UTI. UTI --culture + enterococcus --continue augmentin Atrial fibrillation --rate well-controlled --INR 2.67, continue current dosing coumadin --repeat ECG pending --telemetry monitoring Elevated creatinine, resolved --Cr bumped slightly to 1.3 --encourage PO intake Severe valvular pathology --12/28/15 Echo: normal LV; normal RV; LAE; severe MR; mild to moderate TR; pHTN; moderate to severe AI --appears euvolemic --seen by cardiology, outpatient followup Hypertension --BP well-controlled --continue Toprol XL, amlodipine Hyperlipidemia --continue Lipitor Carotid artery disease --continue Toprol XL, Lipitor CVA w/ right eye blindness --falls precautions Hypothyroidism --continue levothyroxine Depression/anxiety --continue Paxil FEN Fluids: PO intake adequate Electrolytes: replete as indicated Nutrition: low sodium DVT prophylaxis: subq heparin Dispo: continues to require observation. Needs SNF placement. [facility] this patient who has been there for 8 months??? Patient would [facility] go to [facility] anyway. DNR. Visit type - Emergency Visit Emergency Visit: Yes ED Registration Date: 04/08/17 Care time: The patient presented to the Emergency Department on the above date and was hospitalized for further evaluation of their emergent condition. - New Patient This patient is new to me today: No - Critical Care Critical Care patient: No
[2017-04-10 22:14] LABS: ALBUMIN 3.8 g/dl (3.4-5.0); ANION GAP 9 (8-16); BILIRUBIN,TOTAL 0.3 mg/dL (0.2-1.0); BLOOD UREA NITROGEN 19 mg/dL (7-18); CALCIUM 8.7 mg/dL (8.5-10.1); CHLORIDE 104 mmol/L (98-107); CO2 26 mmol/L (21-32); CREATININE 1.4 mg/dL (0.55-1.02); GLUCOSE,RANDOM 135 mg/dL (74-106); MAGNESIUM 2.2 mg/dL (1.8-2.4); POTASSIUM 3.8 mmol/L (3.5-5.1); SGOT/AST 17 U/L (15-37); SGPT/ALT 16 U/L (12-78); SODIUM 139 mmol/L (136-145); TOT PROT 7.5 g/dl (6.4-8.2)
[2017-04-10 22:15] LABS: ALK PHOS 104 U/L (45-117)
[2017-04-10] MEDS: MELATONIN 1 MG TABLET PO SCH (22:54)
[2017-04-10] MEDS: ATORVASTATIN CA 10 MG TABLET (FP) PO SCH (22:55)
[2017-04-10] MEDS: SODIUM CHLORIDE 1,000 ML IV SCH (23:00)
[2017-04-11] MEDS ORDERED: PT OWN MED DRAWER 7, Y5N ONE ×3 (06:19→21:02)
[2017-04-11] MEDS: HEPARIN NA (PORCINE) 5,000 UNITS/ML 1ML VIAL SQ SCH ×3 (06:44→21:07)
[2017-04-11] MEDS: LEVOTHYROXINE NA 100 MCG TABLET (FP) PO SCH (06:44)
[2017-04-11] MEDS: BRIMONIDINE TARTRATE 0.1% OPHTHALMIC 5 ML BOTTLE OU SCH ×3 (06:44→21:08)
[2017-04-11 07:18] LABS: EOS % 1.9 % (0-4.5); HEMATOCRIT 31.4 % (32.4-45.2); LYMPH % 29.2 % (8-40); MCH 26.9 pg (25.7-33.7); MCHC 31.9 g/dl (32.0-36.0); MEAN CELL VOLUME 84.3 fl (80-96); MEAN PLT VOLUME 8.4 fl (7.5-11.1); MONO % 8.3 % (3.8-10.2); NEUT % 59.6 % (42.8-82.8); PLATELET COUNT 154 K/MM3 (134-434); RBC 3.72 M/mm3 (3.60-5.2); RDW 17.5 % (11.6-15.6); WHITE BLOOD COUNT 6.3 K/mm3 (4.0-10.0)
[2017-04-11 07:28] LABS: INR 3.42 (0.82-1.09); PROTHROMBIN TIME (PATIENT) 38.6 SEC (9.98-11.88)
[2017-04-11 07:53] LABS: ALBUMIN 3.4 g/dl (3.4-5.0); ALK PHOS 84 U/L (45-117); ANION GAP 9 (8-16); BILIRUBIN,TOTAL 0.3 mg/dL (0.2-1.0); BLOOD UREA NITROGEN 17 mg/dL (7-18); CALCIUM 8.2 mg/dL (8.5-10.1); CHLORIDE 108 mmol/L (98-107); CO2 25 mmol/L (21-32); CREATININE 1.2 mg/dL (0.55-1.02); GLUCOSE,RANDOM 92 mg/dL (74-106); MAGNESIUM 1.9 mg/dL (1.8-2.4); POTASSIUM 3.8 mmol/L (3.5-5.1); SGOT/AST 15 U/L (15-37); SGPT/ALT 15 U/L (12-78); SODIUM 142 mmol/L (136-145); TOT PROT 6.6 g/dl (6.4-8.2)
--- NOTE | 2017-04-11 09:00 | PN ---
Progress Note, Physician - Current Medication List Current Medications: Active Medications Acetaminophen (Tylenol -) 650 mg PO Q6H PRN PRN Reason: FEVER OR PAIN Last Admin: 04/10/17 02:50 Dose: 650 mg Acetazolamide (Diamox -) 250 mg PO DAILY [facility] Last Admin: 04/10/17 11:18 Dose: 250 mg Amlodipine Besylate (Norvasc -) 10 mg PO DAILY [facility] Last Admin: 04/10/17 11:17 Dose: 10 mg Amoxicillin/Clavulanate Potassium (Augmentin - 875mg Tablet) 1 tab PO BID@0800, 1730 [facility] Last Admin: 04/10/17 17:30 Dose: 1 tab Atorvastatin Calcium (Lipitor -) 10 mg PO HS [facility] Last Admin: 04/10/17 22:55 Dose: 10 mg Brimonidine Tartrate (Alphagan P 0.1% -) 1 drop OU TID [facility] Last Admin: 04/11/17 06:44 Dose: 1 drop Dorzolamide HCl (Trusopt 2%) 1 drop OU BID [facility] Last Admin: 04/10/17 22:53 Dose: 1 drop Heparin Sodium (Porcine) (Heparin -) 5,000 unit SQ TID [facility] Last Admin: 04/11/17 06:44 Dose: 5,000 unit Sodium Chloride (Normal Saline -) 1,000 mls @ 150 mls/hr IV ASDIR [facility] Last Admin: 04/10/17 23:00 Dose: 150 mls/hr Levothyroxine Sodium (Synthroid -) 100 mcg PO DAILY@0700 [facility] Last Admin: 04/11/17 06:44 Dose: 100 mcg Melatonin (Melatonin) 3 mg PO HS [facility] Last Admin: 04/10/17 22:54 Dose: 3 mg Metoprolol Succinate (Toprol Xl -) 25 mg PO BID [facility] Last Admin: 04/10/17 22:53 Dose: 25 mg Paroxetine HCl (Paxil -) 10 mg PO DAILY [facility] Last Admin: 04/10/17 11:17 Dose: 10 mg Ranitidine HCl (Zantac -) 150 mg PO BID [facility] Last Admin: 04/10/17 22:53 Dose: 150 mg Timolol Maleate (Timoptic 0.5%) 1 drop OU BID [facility] Last Admin: 04/10/17 22:53 Dose: 1 drop Warfarin Sodium (Coumadin -) 4 mg PO DAILY@1800 [facility] Last Admin: 04/10/17 17:30 Dose: 4 mg - Objective Vital Signs: Vital Signs Temperature 97.9 F 04/11/17 06:00 Pulse Rate 66 04/11/17 06:00 Respiratory Rate 20 04/11/17 06:00 Blood Pressure 120/54 04/11/17 06:00 O2 Sat by Pulse Oximetry (%) 98 04/10/17 21:00 Labs: CBC, BMP 04/11/17 05:40 04/11/17 05:40 INR, PTT INR 3.42 (0.82-1.09) H 04/11/17 05:40 Assessment/Plan ecg 04/08/17: afib, lat twis, no st changes, nl qtc 76F with hx of CVAs, PAF on coumadin, severe MR and moderate to severe AR sent from [place] for dizziness. dizzy: -resolved -likely 2/2 infection/uti -cont abx, ivfs HTN: -cont current medical regimen Pafib-with h/o CVA: -cont warfarin per inr -cont toprol, rate controlled hld: -cont statin Valvular heart disease-h/o severe MR and mod to sev AR: -stable, euvolemic -outpatient follow up
[2017-04-11] MEDS: PARoxetine HCL 10 MG TABLET (FP) PO SCH (10:29)
[2017-04-11] MEDS: RANITIDINE HCL 150 MG TABLET (FP) PO SCH ×2 (10:29→21:07)
[2017-04-11] MEDS: AMOX TR/POT CLAV 875MG/125MG TABLETS (FP) PO SCH ×2 (10:29→17:45)
[2017-04-11] MEDS: amLODIPine BESYLATE 10 MG TABLET (FP) PO SCH (10:29)
[2017-04-11] MEDS: acetaZOLAMIDE 250 MG TABLET PO SCH (10:30)
[2017-04-11] MEDS: TIMOLOL 0.5% OPHTHALMIC SOL 5 ML BOTTLE OU SCH ×2 (10:30→21:08)
[2017-04-11] MEDS: DORZOLAMIDE 2% HCL OPHTHALMIC SOLUTION 10 ML BOTTLE OU SCH ×2 (10:31→21:08)
--- NOTE | 2017-04-11 11:51 | PN ---
Progress Note, Physician History of Present Illness: seen and examined today in nad. no overnight events. no new complaints. - Current Medication List Current Medications: Active Medications Acetaminophen (Tylenol -) 650 mg PO Q6H PRN PRN Reason: FEVER OR PAIN Last Admin: 04/10/17 02:50 Dose: 650 mg Acetazolamide (Diamox -) 250 mg PO DAILY [facility] Last Admin: 04/11/17 10:30 Dose: 250 mg Amlodipine Besylate (Norvasc -) 10 mg PO DAILY [facility] Last Admin: 04/11/17 10:29 Dose: 10 mg Amoxicillin/Clavulanate Potassium (Augmentin - 875mg Tablet) 1 tab PO BID@0800, 1730 [facility] Last Admin: 04/11/17 10:29 Dose: 1 tab Atorvastatin Calcium (Lipitor -) 10 mg PO [facility] Last Admin: 04/10/17 22:55 Dose: 10 mg Brimonidine Tartrate (Alphagan P 0.1% -) 1 drop OU TID [facility] Last Admin: 04/11/17 06:44 Dose: 1 drop Dorzolamide HCl (Trusopt 2%) 1 drop OU BID [facility] Last Admin: 04/11/17 10:31 Dose: 1 drop Heparin Sodium (Porcine) (Heparin -) 5,000 unit SQ TID [facility] Last Admin: 04/11/17 06:44 Dose: 5,000 unit Sodium Chloride (Normal Saline -) 1,000 mls @ 150 mls/hr IV ASDIR [facility] Last Admin: 04/10/17 23:00 Dose: 150 mls/hr Levothyroxine Sodium (Synthroid -) 100 mcg PO DAILY@0700 [facility] Last Admin: 04/11/17 06:44 Dose: 100 mcg Melatonin (Melatonin) 3 mg PO [facility] Last Admin: 04/10/17 22:54 Dose: 3 mg Metoprolol Succinate (Toprol Xl -) 12.5 mg PO BID [facility] Paroxetine HCl (Paxil -) 10 mg PO DAILY [facility] Last Admin: 04/11/17 10:29 Dose: 10 mg Ranitidine HCl (Zantac -) 150 mg PO BID [facility] Last Admin: 04/11/17 10:29 Dose: 150 mg Timolol Maleate (Timoptic 0.5%) 1 drop OU BID [facility] Last Admin: 04/11/17 10:30 Dose: 1 drop Warfarin Sodium (Coumadin -) 4 mg PO DAILY@1800 [facility] Last Admin: 04/10/17 17:30 Dose: 4 mg - Objective Vital Signs: Vital Signs Temperature 97.9 F 04/11/17 06:00 Pulse Rate 66 04/11/17 06:00 Respiratory Rate 20 04/11/17 06:00 Blood Pressure 120/54 04/11/17 06:00 O2 Sat by Pulse Oximetry (%) 98 04/10/17 21:00 Constitutional: Yes: No Distress, Calm Eyes: Yes: Conjunctiva Clear HENT: Yes: Atraumatic, Normocephalic Neck: Yes: Supple, Trachea Midline Cardiovascular: Yes: Pulse Irregular, Murmur, S1, S2. No: Bradycardia, Tachycardia, Bruit, JVD, Gallop, Rub, S3, S4, Varicosities Respiratory: Yes: Regular, CTA Bilaterally. No: Rales, Rhonchi, Wheezes Gastrointestinal: Yes: Normal Bowel Sounds, Soft. No: Distention, Tenderness Extremities: Yes: WNL Edema: No Peripheral Pulses WNL: Yes Peripheral Pulses: Left Doralis Pedis: 2+, Right Dorsalis Pedis: 2+ Neurological: Yes: Alert, Oriented Psychiatric: Yes: Alert, Oriented Labs: CBC, BMP 04/11/17 05:40 04/11/17 05:40 INR, PTT INR 3.42 (0.82-1.09) H 04/11/17 05:40 - ....Imaging Chest X-ray: Report Reviewed, Image Reviewed EKG: Report Reviewed, Image Reviewed Other: Report Reviewed, Image Reviewed (tele-Afib, periods of bradycardia with HR 30-50s, short pauses, PVCs) Assessment/Plan 76 year old woman with a history of HTN, HLD, carotid stenosis, Pafib, h/o CVA, valvular heart disease with sev MR and mod to sev AR, presumed CAD, psych disorder admitted with AMS possible syncope. 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 Appears to be asx from this standpoint -Close outpatient f/u
[2017-04-11] MEDS: METOPROLOL SUCCINATE 25 MG TAB.SR.24H (FP) PO SCH ×2 (13:21→21:07)
--- NOTE | 2017-04-11 15:44 | PN ---
Progress Note (short form) - Note Progress Note: Subjective: The patient was seen and examined at the bedside, she states she is feeling better today HR into 30s on tele, Toprol XL decreased to 12.5mg bid F/u ECHO and carotid doppler Current Medications Generic Name Dose Route Start Last Admin Trade Name Estela PRN Reason Stop Dose Admin Acetaminophen 650 mg 04/09/17 01:15 04/10/17 02:50 Tylenol - PO 650 mg Q6H PRN Administration FEVER OR PAIN Acetazolamide 250 mg 04/09/17 10:00 04/11/17 10:30 Diamox - PO 250 mg DAILY [facility] Administration Amlodipine Besylate 10 mg 04/09/17 10:00 04/11/17 10:29 Norvasc - PO 10 mg DAILY [facility] Administration Amoxicillin/Clavulanate Potassium 1 tab 04/10/17 08:00 04/11/17 10:29 Augmentin - 875mg Tablet PO 1 tab BID@0800,1730 [facility] Administration Atorvastatin Calcium 10 mg 04/08/17 22:00 04/10/17 22:55 Lipitor - PO 10 mg HS [facility] Administration Brimonidine Tartrate 1 drop 04/08/17 22:00 04/11/17 06:44 Alphagan P 0.1% - OU 1 drop TID [facility] Administration Dorzolamide HCl 1 drop 04/08/17 22:00 04/11/17 10:31 Trusopt 2% OU 1 drop BID [facility] Administration Heparin Sodium (Porcine) 5,000 unit 04/08/17 22:00 04/11/17 06:44 Heparin - SQ 5,000 unit TID [facility] Administration Sodium Chloride 1,000 mls @ 150 mls/hr 04/10/17 22:30 04/10/17 23:00 Normal Saline - IV 150 mls/hr ASDIR [facility] Administration Levothyroxine Sodium 100 mcg 04/09/17 07:00 04/11/17 06:44 Synthroid - PO 100 mcg DAILY@0700 [facility] Administration Melatonin 3 mg 04/08/17 22:00 04/10/17 22:54 Melatonin PO 3 mg HS [facility] Administration Metoprolol Succinate 12.5 mg 04/11/17 10:13 Toprol Xl - PO BID [facility] Paroxetine HCl 10 mg 04/08/17 18:30 04/11/17 10:29 Paxil - PO 10 mg DAILY [facility] Administration Ranitidine HCl 150 mg 04/08/17 22:00 04/11/17 10:29 Zantac - PO 150 mg BID [facility] Administration Timolol Maleate 1 drop 04/08/17 22:00 04/11/17 10:30 Timoptic 0.5% OU 1 drop BID [facility] Administration Warfarin Sodium 4 mg 04/09/17 18:00 04/10/17 17:30 Coumadin - PO 4 mg DAILY@1800 [facility] Administration Objective: Vital Signs Period Temp Pulse Resp BP Sys/Mccall Pulse Ox Last 24 Hr 97.8 F-98.6 F 60-82 18-20 118-132/49-61 98-98 Physical Exam: General: NAD Lungs: CTA bilaterally Heart: Irregular rate, S1S2 Abd: Soft, non-tender, non-distended. normoactive bowel sounds Ext: Warm, well-perfused. 2+ DP/PT bilaterally CBCD WBC 6.3 K/mm3 (4.0-10.0) 04/11/17 05:40 RBC 3.72 M/mm3 (3.60-5.2) 04/11/17 05:40 Hgb 10.0 GM/dL (10.7-15.3) L 04/11/17 05:40 Hct 31.4 % (32.4-45.2) L 04/11/17 05:40 MCV 84.3 fl (80-96) 04/11/17 05:40 MCHC 31.9 g/dl (32.0-36.0) L 04/11/17 05:40 RDW 17.5 % (11.6-15.6) H 04/11/17 05:40 Plt Count 154 K/MM3 (134-434) 04/11/17 05:40 MPV 8.4 fl (7.5-11.1) 04/11/17 05:40 CMP Sodium 142 mmol/L (136-145) 04/11/17 05:40 Potassium 3.8 mmol/L (3.5-5.1) 04/11/17 05:40 Chloride 108 mmol/L (98-107) H 04/11/17 05:40 Carbon Dioxide 25 mmol/L (21-32) 04/11/17 05:40 Anion Gap 9 (8-16) 04/11/17 05:40 BUN 17 mg/dL (7-18) 04/11/17 05:40 Creatinine 1.2 mg/dL (0.55-1.02) H 04/11/17 05:40 Creat Clearance w eGFR 43.45 (>60) 04/11/17 05:40 Random Glucose 92 mg/dL (74-106) D 04/11/17 05:40 Calcium 8.2 mg/dL (8.5-10.1) L 04/11/17 05:40 Total Bilirubin 0.3 mg/dL (0.2-1.0) 04/11/17 05:40 AST 15 U/L (15-37) 04/11/17 05:40 ALT 15 U/L (12-78) 04/11/17 05:40 Alkaline Phosphatase 84 U/L (45-117) 04/11/17 05:40 Total Protein 6.6 g/dl (6.4-8.2) 04/11/17 05:40 Albumin 3.4 g/dl (3.4-5.0) 04/11/17 05:40 CARDIAC ENZYMES Creatine Kinase 97 IU/L (26-192) 04/08/17 10:49 Troponin I < 0.02 ng/ml (0.00-0.05) 04/08/17 10:49 Microbiology 04/08/17 12:40 Urine - Urine Clean Catch Urine Culture - Final Enterococcus Faecalis Assessment: This is a 76 year old female with PMHx of HTN, hyperlipidemia, carotid artery disease, a.fib, severe valvular pathology, CVA, residual right eye blindness, hypothyroidism, depression/anxiety, who presented to the ED with presyncope (patient reports now syncope) Plan: 1) Presyncope: - Hx of b/l carotid artery stenosis (08/07/16) - F/u carotid dopplers - F/u ECHO - F/u orthostatics - Appreciate cardiology consult 2) Paroxysmal a.fib with episodes of bradycardia - Decreased Toprol XL to 12.5mg bid - Continue to monitor on telemetry - Hold Coumadin tonight, INR supratherapeutic 3) Enterococcus faecalis UTI - Continue Augmentin 4) MYLES - Improving with IV fluids - Continue to monitor Cr 5) Hypertension - Continue Norvasc 6) Hyperlipidemia - Continue Lipitor 7) Hypothyroidism - Continue Synthroid 8) F/E/N: - Sodium controlled diet - Monitor electrolytes 9) Prophylaxis: - Heparin 5,000u sq tid 10) Dispo: - Once condition improves CODE STATUS: DNR Visit type - Emergency Visit Emergency Visit: Yes ED Registration Date: 04/08/17 Care time: The patient presented to the Emergency Department on the above date and was hospitalized for further evaluation of their emergent condition. - New Patient This patient is new to me today: Yes Date on this admission: 04/11/17 - Critical Care Critical Care patient: No
[2017-04-11] MEDS: ATORVASTATIN CA 10 MG TABLET (FP) PO SCH (21:07)
[2017-04-11] MEDS: MELATONIN 1 MG TABLET PO SCH (21:07)
[2017-04-11] MEDS: SODIUM CHLORIDE 1,000 ML IV SCH (21:18)
[2017-04-12] MEDS: SODIUM CHLORIDE 1,000 ML IV SCH (00:23)
[2017-04-12] MEDS ORDERED: PT OWN MED DRAWER 7, Y5N ONE ×4 (05:52→14:56)
[2017-04-12] MEDS: HEPARIN NA (PORCINE) 5,000 UNITS/ML 1ML VIAL SQ SCH ×2 (05:58→14:42)
[2017-04-12] MEDS: BRIMONIDINE TARTRATE 0.1% OPHTHALMIC 5 ML BOTTLE OU SCH ×2 (05:58→14:42)
[2017-04-12] MEDS: LEVOTHYROXINE NA 100 MCG TABLET (FP) PO SCH (05:59)
[2017-04-12 07:53] LABS: PROTHROMBIN TIME (PATIENT) 46.2 SEC (9.98-11.88)
[2017-04-12] MEDS: AMOX TR/POT CLAV 875MG/125MG TABLETS (FP) PO SCH (08:44)
[2017-04-12 08:52] LABS: INR 4.09 (0.82-1.09)
[2017-04-12] MEDS: METOPROLOL SUCCINATE 25 MG TAB.SR.24H (FP) PO SCH (09:11)
[2017-04-12] MEDS: amLODIPine BESYLATE 10 MG TABLET (FP) PO SCH (09:12)
[2017-04-12] MEDS: DORZOLAMIDE 2% HCL OPHTHALMIC SOLUTION 10 ML BOTTLE OU SCH (09:12)
[2017-04-12] MEDS: TIMOLOL 0.5% OPHTHALMIC SOL 5 ML BOTTLE OU SCH (09:12)
[2017-04-12] MEDS: PARoxetine HCL 10 MG TABLET (FP) PO SCH (09:12)
[2017-04-12] MEDS: RANITIDINE HCL 150 MG TABLET (FP) PO SCH (09:13)
--- NOTE | 2017-04-12 09:27 | PN ---
Progress Note, Physician Chief Complaint: TELE: reviewed. AF with periods of bradycardia while asleep (30-40s) no pauses > 3 seconds - Current Medication List Current Medications: Active Medications Acetaminophen (Tylenol -) 650 mg PO Q6H PRN PRN Reason: FEVER OR PAIN Last Admin: 04/10/17 02:50 Dose: 650 mg Acetazolamide (Diamox -) 250 mg PO DAILY [facility] Last Admin: 04/11/17 10:30 Dose: 250 mg Amlodipine Besylate (Norvasc -) 10 mg PO DAILY [facility] Last Admin: 04/12/17 09:12 Dose: 10 mg Amoxicillin/Clavulanate Potassium (Augmentin - 875mg Tablet) 1 tab PO BID@0800, 1730 [facility] Last Admin: 04/12/17 08:44 Dose: 1 tab Atorvastatin Calcium (Lipitor -) 10 mg PO [facility] Last Admin: 04/11/17 21:07 Dose: 10 mg Brimonidine Tartrate (Alphagan P 0.1% -) 1 drop OU TID [facility] Last Admin: 04/12/17 05:58 Dose: 1 drop Dorzolamide HCl (Trusopt 2%) 1 drop OU BID [facility] Last Admin: 04/12/17 09:12 Dose: 1 drop Heparin Sodium (Porcine) (Heparin -) 5,000 unit SQ TID [facility] Last Admin: 04/12/17 05:58 Dose: 5,000 unit Sodium Chloride (Normal Saline -) 1,000 mls @ 150 mls/hr IV ASDIR [facility] Last Admin: 04/12/17 00:23 Dose: Not Given Levothyroxine Sodium (Synthroid -) 100 mcg PO DAILY@0700 [facility] Last Admin: 04/12/17 05:59 Dose: 100 mcg Melatonin (Melatonin) 3 mg PO [facility] Last Admin: 04/11/17 21:07 Dose: 3 mg Metoprolol Succinate (Toprol Xl -) 12.5 mg PO BID [facility] Last Admin: 04/12/17 09:11 Dose: 12.5 mg Paroxetine HCl (Paxil -) 10 mg PO DAILY [facility] Last Admin: 04/12/17 09:12 Dose: 10 mg Ranitidine HCl (Zantac -) 150 mg PO BID [facility] Last Admin: 04/12/17 09:13 Dose: 150 mg Timolol Maleate (Timoptic 0.5%) 1 drop OU BID [facility] Last Admin: 04/12/17 09:12 Dose: 1 drop Warfarin Sodium (Coumadin -) 4 mg PO DAILY@1800 [facility] Last Admin: 04/10/17 17:30 Dose: 4 mg - Objective Vital Signs: Vital Signs Temperature 97.7 F 04/12/17 05:43 Pulse Rate 70 04/12/17 05:43 Respiratory Rate 17 04/12/17 05:43 Blood Pressure 136/52 04/12/17 05:43 O2 Sat by Pulse Oximetry (%) 100 04/12/17 04:30 Constitutional: Yes: Calm Cardiovascular: Yes: Pulse Irregular Respiratory: Yes: CTA Bilaterally Gastrointestinal: Yes: Soft Edema: No Neurological: Yes: Alert, Oriented Labs: CBC, BMP 04/11/17 05:40 04/11/17 05:40 INR, PTT INR 4.09 (0.82-1.09) H* 04/12/17 06:30 Laboratory Tests 04/11/17 04/11/17 04/12/17 05:40 05:40 06:30 WBC 6.3 Hgb 10.0 L Plt Count 154 INR 4.09 H* Potassium 3.8 Creatinine 1.2 H - ....Imaging EKG: Image Reviewed Assessment/Plan Assessment/Plan 76 year old woman with a history of HTN, HLD, carotid stenosis, Pafib, h/o CVA, valvular heart disease with sev MR and mod to sev AR, presumed CAD, psych disorder admitted with AMS possible syncope. 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 -No hard indication for PPM at this time, will need close outpatient f/u Carotid stenosis -cont statin -consider Vascular f/up Valvular heart disease-h/o moderate to severe MR and mod to sev AR -stable, euvolemic, no history of CHF. Appears to be asx from this standpoint -Close outpatient f/u
--- NOTE | 2017-04-12 09:44 | PN ---
Progress Note (short form) - Note Progress Note: Subjective: The patient was seen and examined at the bedside, she states she is feeling better today Current Medications Generic Name Dose Route Start Last Admin Trade Name Estela PRN Reason Stop Dose Admin Acetaminophen 650 mg 04/09/17 01:15 04/10/17 02:50 Tylenol - PO 650 mg Q6H PRN Administration FEVER OR PAIN Acetazolamide 250 mg 04/09/17 10:00 04/11/17 10:30 Diamox - PO 250 mg DAILY [facility] Administration Amlodipine Besylate 10 mg 04/09/17 10:00 04/12/17 09:12 Norvasc - PO 10 mg DAILY [facility] Administration Amoxicillin/Clavulanate Potassium 1 tab 04/10/17 08:00 04/12/17 08:44 Augmentin - 875mg Tablet PO 1 tab BID@0800,1730 [facility] Administration Atorvastatin Calcium 10 mg 04/08/17 22:00 04/11/17 21:07 Lipitor - PO 10 mg HS [facility] Administration Brimonidine Tartrate 1 drop 04/08/17 22:00 04/12/17 05:58 Alphagan P 0.1% - OU 1 drop TID [facility] Administration Dorzolamide HCl 1 drop 04/08/17 22:00 04/12/17 09:12 Trusopt 2% OU 1 drop BID [facility] Administration Heparin Sodium (Porcine) 5,000 unit 04/08/17 22:00 04/12/17 05:58 Heparin - SQ 5,000 unit TID [facility] Administration Sodium Chloride 1,000 mls @ 150 mls/hr 04/10/17 22:30 04/12/17 00:23 Normal Saline - IV Not Given ASDIR [facility] Levothyroxine Sodium 100 mcg 04/09/17 07:00 04/12/17 05:59 Synthroid - PO 100 mcg DAILY@0700 [facility] Administration Melatonin 3 mg 04/08/17 22:00 04/11/17 21:07 Melatonin PO 3 mg HS [facility] Administration Metoprolol Succinate 12.5 mg 04/11/17 10:13 04/12/17 09:11 Toprol Xl - PO 12.5 mg BID [facility] Administration Paroxetine HCl 10 mg 04/08/17 18:30 04/12/17 09:12 Paxil - PO 10 mg DAILY [facility] Administration Ranitidine HCl 150 mg 04/08/17 22:00 04/12/17 09:13 Zantac - PO 150 mg BID [facility] Administration Timolol Maleate 1 drop 04/08/17 22:00 04/12/17 09:12 Timoptic 0.5% OU 1 drop BID [facility] Administration Warfarin Sodium 4 mg 04/09/17 18:00 04/10/17 17:30 Coumadin - PO 4 mg DAILY@1800 [facility] Administration Objective: Vital Signs Period Temp Pulse Resp BP Sys/Mccall Pulse Ox Last 24 Hr 97.7 F-98.9 F 60-86 17-20 111-147/45-70 98-100 Physical Exam: General: NAD Lungs: CTA bilaterally Heart: Irregular rate, S1S2 Abd: Soft, non-tender, non-distended. normoactive bowel sounds Ext: Warm, well-perfused. 2+ DP/PT bilaterally CBCD WBC 6.3 K/mm3 (4.0-10.0) 04/11/17 05:40 RBC 3.72 M/mm3 (3.60-5.2) 04/11/17 05:40 Hgb 10.0 GM/dL (10.7-15.3) L 04/11/17 05:40 Hct 31.4 % (32.4-45.2) L 04/11/17 05:40 MCV 84.3 fl (80-96) 04/11/17 05:40 MCHC 31.9 g/dl (32.0-36.0) L 04/11/17 05:40 RDW 17.5 % (11.6-15.6) H 04/11/17 05:40 Plt Count 154 K/MM3 (134-434) 04/11/17 05:40 MPV 8.4 fl (7.5-11.1) 04/11/17 05:40 CMP Sodium 142 mmol/L (136-145) 04/11/17 05:40 Potassium 3.8 mmol/L (3.5-5.1) 04/11/17 05:40 Chloride 108 mmol/L (98-107) H 04/11/17 05:40 Carbon Dioxide 25 mmol/L (21-32) 04/11/17 05:40 Anion Gap 9 (8-16) 04/11/17 05:40 BUN 17 mg/dL (7-18) 04/11/17 05:40 Creatinine 1.2 mg/dL (0.55-1.02) H 04/11/17 05:40 Creat Clearance w eGFR 43.45 (>60) 04/11/17 05:40 Random Glucose 92 mg/dL (74-106) D 04/11/17 05:40 Calcium 8.2 mg/dL (8.5-10.1) L 04/11/17 05:40 Total Bilirubin 0.3 mg/dL (0.2-1.0) 04/11/17 05:40 AST 15 U/L (15-37) 04/11/17 05:40 ALT 15 U/L (12-78) 04/11/17 05:40 Alkaline Phosphatase 84 U/L (45-117) 04/11/17 05:40 Total Protein 6.6 g/dl (6.4-8.2) 04/11/17 05:40 Albumin 3.4 g/dl (3.4-5.0) 04/11/17 05:40 CARDIAC ENZYMES Creatine Kinase 97 IU/L (26-192) 04/08/17 10:49 Troponin I < 0.02 ng/ml (0.00-0.05) 04/08/17 10:49 Microbiology 04/08/17 12:40 Urine - Urine Clean Catch Urine Culture - Final Enterococcus Faecalis Assessment: This is a 76 year old female with PMHx of HTN, hyperlipidemia, carotid artery disease, a.fib, severe valvular pathology, CVA, residual right eye blindness, hypothyroidism, depression/anxiety, who presented to the ED with presyncope (patient reports now syncope) Plan: 1) Presyncope: - Hx of b/l carotid artery stenosis (08/07/16) - Carotid dopplers: moderate to large plaques in the mid and distal right carotid artery as well as at the bifurcation and bulb without evidence of hemodynamically stenosis. Moderate sized plaques in the left mid and distal common carotid artery as well as the bifurcation with small plaques in the bulb an without evidence of hemodynamically significant stenosis bilaterally - F/u CTA neck as recommended - ECHO normal LV size and function. Left atrium moderately dilated, moderate to severe mitral annular calcification. Mild to moderate mitral valve thickening. Moderate MR, mild to mod TR, mod pulmonary HTN, moderate aortic sclerosis - Orthostatics reviewed - Appreciate cardiology consult 2) Paroxysmal a.fib with episodes of bradycardia, no pauses >3sec - Decreased Toprol XL to 12.5mg bid - Continue to monitor on telemetry - Hold Coumadin tonight, INR supratherapeutic 3) Enterococcus faecalis UTI - Continue Augmentin 4) MYLES - Improving with IV fluids - Continue to monitor Cr 5) Hypertension - Continue Norvasc 6) Hyperlipidemia - Continue Lipitor 7) Hypothyroidism - Continue Synthroid 8) F/E/N: - Sodium controlled diet - Monitor electrolytes 9) Prophylaxis: - Heparin 5,000u sq tid 10) Dispo: - Once condition improves CODE STATUS: DNR Visit type - Emergency Visit Emergency Visit: Yes ED Registration Date: 04/08/17 Care time: The patient presented to the Emergency Department on the above date and was hospitalized for further evaluation of their emergent condition. - New Patient This patient is new to me today: No - Critical Care Critical Care patient: No
[2017-04-12] MEDS: acetaZOLAMIDE 250 MG TABLET PO SCH (14:42)
[2017-04-12 15:22] VITALS: BP 126/65; PULSE 76; TEMP 98
--- NOTE | 2017-04-12 15:33 | DS ---
Physical Examination Vital Signs: Vital Signs Temperature 98 F 04/12/17 14:18 Pulse Rate 76 04/12/17 14:18 Respiratory Rate 16 04/12/17 14:18 Blood Pressure 126/65 04/12/17 14:18 O2 Sat by Pulse Oximetry (%) 100 04/12/17 10:00 Labs: CBC, BMP 04/11/17 05:40 04/11/17 05:40 Discharge Summary Reason For Visit: UTI,DIZZINESS Current Active Problems Pre-syncope (Acute) UTI (urinary tract infection) (Acute) Hospital Course: Case and discharge instructions discussed with CAREER DEVELOPMENT DIRECTOR Ev at [facility]. Cleared for discharge by cardiology with close follow-up Condition: Improved - Instructions Diet, Activity, Other Instructions: Please return to the ED with new, persistent, or worsening symptoms. Please follow-up with providers as indicated. STOP taking your Coumadin and have your INR checked every day. You may restart your Coumadin once your INR is between 2-3. Follow-up with vascular surgery within 1 week for further management of your carotid artery stenosis. Continue taking Augmentin twice a day. The next dose after discharge will be tonight (04/12/17) at 10pm. Referrals: Yariel Rose MD [Staff Physician] - Glenn Ward MD [Staff Physician] - (Please follow-up with cardiology within 2-3 days for further management of your heart rate) Balbir Mariscal MD [Staff Physician] - (Please follow-up with Dr. Mariscal ( vascular surgery) within 1 week for further management of your carotid artery stenosis) Disposition: ALF FACILITY - Home Medications Comprehensive Discharge Medication List: Ambulatory Orders Acetaminophen 650 mg PO Q6H PRN 04/08/17 Acetazolamide [Diamox -] 250 mg PO DAILY 04/08/17 Amlodipine Besylate 10 mg PO DAILY 04/08/17 Atorvastatin Ca [Lipitor] 10 mg PO DAILY 04/08/17 Atropine 1% Ophth. Solution - 1 drop OU DAILY 04/08/17 Brimonidine Tartrate [Alphagan P 0.1% -] 1 drop OU TID 04/08/17 Dorzolamide HCl/Timolol Maleat [Cosopt Eye Drops] 1 drop OU BID 04/08/17 Levothyroxine [Synthroid -] 100 mcg PO DAILY 04/08/17 Melatonin 3 mg PO HS 04/08/17 Paroxetine HCl [Paxil -] 10 mg PO DAILY 04/08/17 Ranitidine HCl 150 mg PO BID 04/08/17 Amoxicillin/Potassium Clav [Augmentin 875-125 Tablet] 1 each PO BID #5 tablet Metoprolol Succinate [Toprol XL -] 12.5 mg PO BID #0 tab.sr.24h 04/12/17
== END 2017-04-12 18:07 ==
LOC: JER 09:48 → JERBED 15:22 → J4S 18:55
PROVIDERS: ADMIT Internal Medicine; ATTEND Registered Nurse
PROC: 3E0337Z Introduction of Electrolytic and Water Balance Substance into Peripheral Vein, Percutaneous Approach (ICD-10-PCS; principal; 2017-04-08)
PROC: 3E013GC Introduction of Other Therapeutic Substance into Subcutaneous Tissue, Percutaneous Approach (ICD-10-PCS; 2017-04-08)
DX: N39.0 Urinary tract infection, site not specified (principal); R55 Syncope and collapse; I48.0 Paroxysmal atrial fibrillation; I10 Essential (primary) hypertension; E03.9 Hypothyroidism, unspecified; I25.10 Atherosclerotic heart disease of native coronary artery without angina pectoris; R79.89 Other specified abnormal findings of blood chemistry; E78.5 Hyperlipidemia, unspecified; I65.29 Occlusion and stenosis of unspecified carotid artery; I69.398 Other sequelae of cerebral infarction; B95.2 Enterococcus as the cause of diseases classified elsewhere; N17.9 Acute kidney failure, unspecified; F41.8 Other specified anxiety disorders; Z79.01 Long term (current) use of anticoagulants; Z87.891 Personal history of nicotine dependence
CPT/HCPCS: 36415; 70450-TC; 70498-TC; 71045-TC; 80053; 81003; 81015; 82550; 83605; 83735; 84100; 84484; 85025; 85610; 85730; 86850; 86900; 86901; 87086; 87186; 93005; 93010; 93306-TC; 93880-TC; 96372; 99284-25; G0378; J1644